=== PATIENT | male | born 1930 | race Caucasian/White ===

== ENCOUNTER 2016-12-23 06:02 | Inpatient (IN) | payer OTHER, MEDICARE ==
[~2016-12-23 06:02] MED LIST: Lactated Ringers 1,000 ML IV SCH; Lidocaine 1%/Sod Bicarbonate in NS 8.4% 1 ML Syringe IV PRN; Sodium Chloride 0.9% 10 ML Syringe FLUSH PRN
--- NOTE | 2016-12-23 06:46 | PCM.PREANE ---
Preanesthetic Assessment - Anesthesia/Transfusion/Family Hx Anesthesia History: Prior Anesthesia Without Reaction Family History of Anesthesia Reaction: No Transfusion History: No Prior Transfusion(s) Type of Transfusion Reactions: Reports: Unknown - Review of Systems General: No Symptoms Pulmonary: Shortness of Breath (asthma), Wheezing Cardiovascular: No Symptoms Gastrointestinal: No symptoms Neurological: No Symptoms Other: Reports: Thyroid Problems - Physical Assessment NPO Status Date: 12/22/16 NPO Status Time: 19:00 Pulse: 92 O2 Sat by Pulse Oximetry: 92 Respiratory Rate: 20 Blood Pressure: 180/94 Temperature: 97.3 F Height: 5 ft 10 in Weight: 80.83 kg ASA Class: 3 Mental Status: Alert & Oriented x3 Airway Class: Mallampati = 2 Dentition: Reports: Dentures (top and bottom) Thyro-Mental Finger Breadths: 3 Mouth Opening Finger Breadths: 3 ROM/Head Extension: Full Lungs: Clear to auscultation, Normal respiratory effort Cardiovascular: Regular Rate, Regular Rhythm - Lab Values: Laboratory Last Values MRSA (PCR) Negative 12/11/16 15:27 12/10/16 Hgb 16.0 Plt 213 BUN 19 Cr 1.5 lytes WNL GFR 45 - Imaging/EKG Impressions: 12/10/16 EKG SR rate 82-vent bigeminy 12/10/16 CXR lungs clear.Normal heart size Derrek Rodriguez RN visit with Dr Marsh regarding carotid bruits- no change and does not need to be worked up. - Allergies Allergies/Adverse Reactions: Allergies Allergy/AdvReac Type Severity Reaction Status Date / Time No Known Allergies Allergy Verified 12/20/16 13:23 - Blood Blood Available: Yes - Acknowledgements Anesthesia Type Planned: General Anesthesia (refused spinal even after discussing benefits. Had family members with bad experience.) Pt an Appropriate Candidate for the Planned Anesthesia: Yes Alternatives and Risks of Anesthesia Discussed w Pt/Guardian: Yes Pt/Guardian Understands and Agrees with Anesthesia Plan: Yes PreAnesthesia Questionnaire HEENT History: Reports: Impaired Vision, Other (See Below) Other HEENT History: wears glasses, dentures Cardiovascular History: Reports: Hypertension, Other (See Below) Other Cardiovascular History: bilateral carotid bruits Respiratory History: Reports: Asthma Gastrointestinal History: Reports: GERD Genitourinary History: Reports: BPH Other Genitourinary History: nocturia 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 Sees Dr. Luois for this - Infectious Disease History Infectious Disease History: Reports: Other (See Below) Other Infectious Disease History: STAFF - Past Surgical History Head Surgeries/Procedures: Reports: None GI Surgical History: Reports: Appendectomy, Cholecystectomy Musculoskeletal Surgical History: Reports: Hip Replacement Other Musculoskeletal Surgeries/Procedures:: elbow infection I&D, HISTORY OF STAFF INFECTION WITH HIP SURGERY, R total hip replacement, R shoulder surgery - SUBSTANCE USE Smoking Status *Q: Never Smoker Tobacco Use Within Last Twelve Months: No Second Hand Smoke Exposure: No Days Per Week of Alcohol Use: 0 (rarely) Recreational Drug Use History: No - HOME MEDS Home Medications: Home Meds Albuterol [IJD: Ventolin HFA] 2 inh PO ASDIRECTED PRN 01/25/16 [History] Budesonide/Formoterol Fumarate [Symbicort 80-4.5 Mcg Inhaler] 2 inh PO BID 01/24 [History] Clobetasol [Clobetasol 0.05%] 1 ea TOP ASDIRECTED PRN 01/25/16 [History] Omeprazole 20 mg PO DAILY 01/25/16 [History] amLODIPine Besylate [Amlodipine Besylate] 10 mg PO DAILY 01/25/16 [History] Levothyroxine [Synthroid] 50 mcg PO DAILY 12/20/16 [History] - CURRENT (IN HOUSE) MEDS Current Meds: Current Medications Lactated Ringer's (Ringers, Lactated) 1,000 mls @ 125 mls/hr IV ASDIRECTED LEE Lidocaine/Sodium Bicarbonate (Buffered Lidocaine 1% In Ns 8.4%) 0.25 ml IV ONETIME PRN PRN Reason: Prior to IV Start Sodium Chloride (Saline Flush) 10 ml FLUSH ASDIRECTED PRN PRN Reason: Keep Vein Open Discontinued Medications Bupivacaine HCl (Marcaine 0.25%) Confirm Administered Dose 30 ml .ROUTE .STK- MED ONE Stop: 12/23/16 06:03 Cefazolin Sodium (Ancef) Confirm Administered Dose 2 gm .ROUTE .STK-MED ONE Stop: 12/23/16 06:02 Cefazolin Sodium (Ancef) Confirm Administered Dose 2 gm .ROUTE .STK-MED ONE Stop: 12/23/16 06:51 Iodine (Iodine 2% Mild Tincture) Confirm Administered Dose 30 ml .ROUTE .STK- MED ONE Stop: 12/23/16 06:02 Morphine Sulfate (Duramorph Pf) Confirm Administered Dose 10 mg .ROUTE .STK-MED ONE Stop: 12/23/16 06:51 Ondansetron HCl (Zofran) Confirm Administered Dose 4 mg .ROUTE .STK-MED ONE Stop: 12/23/16 06:50 Tranexamic Acid (Cyklokapron) Confirm Administered Dose 1,000 mg .ROUTE .STK- MED ONE Stop: 12/23/16 06:02
[2016-12-23] MEDS ORDERED: Ondansetron 4 MG/2 ML SDV ONE (06:49)
[2016-12-23] MEDS ORDERED: Morphine PF 10 MG/10 ML SDV ONE (06:50)
[2016-12-23] MEDS ORDERED: Albuterol 0.083% 2.5 MG/3 ML Neb Soln ONE (06:50)
[2016-12-23] MEDS ORDERED: ceFAZolin 1 GM Vial ONE (06:50)
[2016-12-23] MEDS ORDERED: Albuterol 0.083% 2.5 MG/3 ML Neb Soln NEB ONE (06:52)
[2016-12-23] MEDS ORDERED: Propofol 200 MG/20 ML SDV ONE (06:55)
[2016-12-23] MEDS ORDERED: Bisacodyl 5 MG Tab PO PRN (06:58)
[2016-12-23] MEDS ORDERED: Sennosides 8.6 MG Tab PO PRN (06:58)
[2016-12-23] MEDS ORDERED: Morphine 2 MG/ML Syringe IVPUSH PRN (06:58)
[2016-12-23] MEDS ORDERED: Magnesium Hydroxide 400 MG/5 ML Susp 30 ML Cup PO PRN (06:58)
[2016-12-23] MEDS ORDERED: fentaNYL 100 MCG/2 ML SDV ONE ×2 (07:12→08:04)
[2016-12-23] MEDS ORDERED: Lidocaine 1% 4 ML ONE (07:12)
[2016-12-23] MEDS ORDERED: Rocuronium 50 MG/5 ML Vial ONE (07:12)
[2016-12-23] MEDS ORDERED: Vancomycin 1 GM, Vancomycin 500 MG in Sodium Chloride 0.9% 500 ML IV ONE (07:15)
[2016-12-23] MEDS: Iodine/Sodium Iodide 2% Tincture 30 ML Bottle ONE ×2 (07:50→08:15)
[2016-12-23] MEDS: ceFAZolin 1 GM Vial ONE ×2 (07:50→08:20)
[2016-12-23] MEDS: Morphine 8 MG, EPINEPHrine 0.3 MG, Cefuroxime 750 MG, Ketorolac 30 MG, Sodium Chloride ... ONE ×15 (07:51→13:03)
[2016-12-23] MEDS: Bupivacaine 0.25% 30 ML SDV ONE ×2 (07:51→08:24)
[2016-12-23] MEDS ORDERED: ePHEDrine/Normal Saline 25 MG/5 ML Syringe ONE ×2 (08:02→08:37)
[2016-12-23] MEDS ORDERED: HYDROmorphone 1 MG/ML Syringe ONE (08:04)
[2016-12-23] MEDS ORDERED: Ondansetron 4 MG/2 ML SDV IVPUSH PRN (08:09)
[2016-12-23] MEDS ORDERED: Meperidine PF 50 MG/ML Syringe IVPUSH PRN (08:09)
[2016-12-23] MEDS ORDERED: Lactated Ringers 1,000 ML ONE (08:14)
--- NOTE | 2016-12-23 08:25 | PCM.OPNOTE ---
- General Post-Op/Procedure Note Date of Surgery/Procedure: 12/23/16 Operative Procedure(s): left total hip arthroplasty Pre Op Diagnosis: left hip osteoarthrosis Post-Op Diagnosis: Same Anesthesia Technique: General ET tube, Local Primary Surgeon: Mamadou Armstrong Anesthesia Provider: Leslie Gaspar Fitness Services Manager: Dina Hinkle Fitness Services Manager: Trixie Gonzales EBJessika in mLs: 350 Complications: None Condition: Good
[2016-12-23] MEDS ORDERED: Phenylephrine/Normal Saline 100 MCG/ML 10 ML Syringe ONE (08:37)
--- NOTE | 2016-12-23 09:13 | PCM.POSTAN ---
POST ANESTHESIA ASSESSMENT - MENTAL STATUS Mental Status: alert - VITAL SIGNS Pulse Rate: 104 SaO2: 94 Resp Rate: 14 Blood Pressure: 150/84 Temperature: 36.4 C - RESPIRATORY Respiratory Status: respiratory rate WNL, airway patent, O2 saturation stable - CARDIOVASCULAR CV Status: pulse rate WNL, blood pressure stable - GASTROINTESTINAL GI Status: no symptoms - PAIN Pain Score: 0 - POST OP HYDRATION Hydration Status: adequate & stable
[2016-12-23] MEDS ORDERED: Albuterol/Ipratropium 3.0-0.5 MG/3 ML Neb Soln ONE (09:50)
[2016-12-23] MEDS ORDERED: Albuterol/Ipratropium 3.0-0.5 MG/3 ML Neb Soln NEB ONE (09:56)
[2016-12-23] MEDS ORDERED: Naloxone 0.4 MG/ML SDV IVPUSH PRN (10:00)
[2016-12-23] MEDS ORDERED: HYDROmorphone 0.5 MG/0.5 ML Syringe IVPUSH PRN (10:00)
[2016-12-23] MEDS ORDERED: fentaNYL 100 MCG/2 ML SDV IVPUSH PRN (10:00)
--- NOTE | 2016-12-23 10:02 | CR ---
Pelvis and left hip: AP view of the pelvis was obtained centered to the hips. Lateral view of the left hip was also obtained. Comparison: No previous pelvis or hip exam. Bilateral hip prosthesis are seen. Components are aligned. Soft tissue air is noted around the left hip compatible with recent hip prosthesis placement. Underlying bony structures are intact. Degenerative change is partially visualized within the lower lumbar spine. Impression: 1. Recently placed left hip prosthesis. 2. Other incidental findings as described above. Diagnostic code #2
--- NOTE | 2016-12-23 11:01 | PCM.CONS ---
H&P History of Present Illness - General Date of Service: 12/23/16 Admit Problem/Dx: Admission Diagnosis/Problem Admission Diagnosis/Problem Osteoarthritis of hip Source of Information: Patient, Family, Old Records, Provider, RN Notes Reviewed History Limitations: Reports: Physical Impairment - History of Present Illness Initial Comments - Free Text/Narative: This is an 86-year-old, white male, with past medical history of HTN, Asthma, GERD, Hypothyroidism, OA/DJD, BPH and Carotid Bruits who underwent status post left total hip arthroplasty post operative day zero. Patient is currently nauseated with vomiting. His pain is controlled. He denies any other acute issues. Medicine was consulted for postoperative care. Left Hip Pain Score (Numeric/FACES): 0 - Related Data Allergies/Adverse Reactions: Allergies Allergy/AdvReac Type Severity Reaction Status Date / Time No Known Allergies Allergy Verified 12/20/16 13:23 Home Medications: Home Meds Albuterol [IJD: Ventolin HFA] 2 inh PO ASDIRECTED PRN 01/25/16 [History] Budesonide/Formoterol Fumarate [Symbicort 80-4.5 Mcg Inhaler] 2 inh PO BID 01/24 [History] Clobetasol [Clobetasol 0.05%] 1 ea TOP ASDIRECTED PRN 01/25/16 [History] Omeprazole 20 mg PO DAILY 01/25/16 [History] amLODIPine Besylate [Amlodipine Besylate] 10 mg PO DAILY 01/25/16 [History] Levothyroxine [Synthroid] 50 mcg PO DAILY 12/20/16 [History] Tamsulosin HCl [Tamsulosin HCl] PO DAILY 12/23/16 [History] Past Medical History HEENT History: Reports: Impaired Vision, Other (See Below) Other HEENT History: wears glasses, dentures Cardiovascular History: Reports: Hypertension, Other (See Below) Other Cardiovascular History: bilateral carotid bruits Respiratory History: Reports: Asthma Gastrointestinal History: Reports: GERD Genitourinary History: Reports: BPH Other Genitourinary History: nocturia 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 Sees Dr. Louis for this - Infectious Disease History Infectious Disease History: Reports: Other (See Below) Other Infectious Disease History: STAFF - Past Surgical History Head Surgeries/Procedures: Reports: None GI Surgical History: Reports: Appendectomy, Cholecystectomy Musculoskeletal Surgical History: Reports: Hip Replacement Other Musculoskeletal Surgeries/Procedures:: elbow infection I&D, HISTORY OF STAFF INFECTION WITH HIP SURGERY, R total hip replacement, R shoulder surgery Social & Family History - Family History Cardiac: Reports: Aneurysm : Reports: Dialysis Endocrine/Metabolic: Reports: Hypothyroidism Oncologic: Reports: Colon, Leukemia Other Oncologic Family History: STOMACH CANCER, LEUKEMIA - Tobacco Use Smoking Status *Q: Never Smoker Second Hand Smoke Exposure: No - Alcohol Use Days Per Week of Alcohol Use: 0 (rarely) - Recreational Drug Use Recreational Drug Use: No H&P Review of Systems - Review of Systems: Review Of Systems: See Below General: Denies: Fever, Malaise, Weakness, Fatigue HEENT: Reports: No Symptoms Pulmonary: Denies: Shortness of Breath Cardiovascular: Denies: Chest Pain, Palpitations, Dyspnea on Exertion Gastrointestinal: Reports: Nausea, Vomiting. Denies: Abdominal Pain Genitourinary: Reports: No Symptoms Musculoskeletal: Reports: No Symptoms Skin: Denies: Cyanosis, Erythema Psychiatric: Denies: Confusion, Depression, Anxiety Neurological: Reports: Difficulty Walking, Gait Disturbance. Denies: Confusion Hematologic/Lymphatic: Reports: No Symptoms Immunologic: Reports: No Symptoms Exam - Exam Exam: See Below - Vital Signs Vital Signs: Last Vital Signs Temp 36.5 C 12/23/16 09:50 Pulse 104 H 12/23/16 09:12 Resp 19 12/23/16 09:50 BP 127/72 12/23/16 09:50 Pulse Ox 92 L 12/23/16 09:59 Weight: 80.83 kg - Exam General: Alert, Oriented, Cooperative, Mild Distress HEENT: Conjunctiva Clear, EACs Clear, EOMI, Hearing Intact, Mucosa Moist & [place] , Nares Patent, Normal Nasal Septum, Posterior Pharynx Clear, Pupils Equal, Pupils Reactive Neck: Supple, Trachea Midline, Carotid Bruit Lungs: Normal Respiratory Effort, Decreased Breath Sounds Cardiovascular: Regular Rate, Regular Rhythm Abdomen: Normal Bowel Sounds, Soft. No: Organomegaly, Tenderness (Male) Exam: Deferred Rectal (Males) Exam: Deferred Back Exam: Normal Inspection, Decreased Range of Motion Extremities: Normal Inspection, Normal Pulses. No: Edema Peripheral Pulses: 2+: Posterior Tibial (L), Posterior Tibial (R), Dorsalis Pedis (L), Dorsalis Pedis (R) Skin: Warm, Dry, Intact Neuro Extensive - Mental Status: Oriented x3, Normal Cognition, Memory Intact Neuro Extensive - Motor, Sensory, Reflexes: CN II-XII Intact (limited but fairly intact), Abnormal Gait Psychiatric: Alert, Normal Affect, Normal Mood - Patient Data Lab Results last 24 hrs: Laboratory Results - last 24 hr 12/23/16 Range/Units 06:39 Blood Type A POSITIVE Gel Antibody Screen Negative Consult PN Assessment/Plan POD#: 0 Procedures: Procedures AIRWAY INHALATION TREATMENT (01/29/16) BLOOD TYPING SEROLOGIC ABO (01/29/16) BLOOD TYPING SEROLOGIC RH(D) (01/29/16) COMPLETE CBC W/AUTO DIFF WBC (01/29/16) COMPREHEN METABOLIC PANEL (01/29/16) EVALUATE PT USE OF INHALER (01/29/16) FLUOROSCOPE EXAMINATION (01/29/16) GAIT TRAINING THERAPY (01/29/16) MANUAL THERAPY 1/> REGIONS (05/02/16) MEASURE BLOOD OXYGEN LEVEL (01/29/16) MEASURE BLOOD OXYGEN LEVEL (01/29/16) MR-STAPH DNA AMP PROBE (01/29/16) OT EVALUATION (01/29/16) PT EVALUATION (03/01/16) RBC ANTIBODY SCREEN (01/29/16) ROUTINE VENIPUNCTURE (12/13/16) SELF CARE MNGMENT TRAINING (01/29/16) THERAPEUTIC EXERCISES (05/15/16) THROMBOPLASTIN TIME PARTIAL (12/13/16) X-RAY EXAM OF SHOULDER (01/29/16) Problem List Initiated/Reviewed/Updated: Yes Plan: Assessment: Acute: Post-Operative Care State - Stable - Continue to monitor for hemodynamic instability S/p Left Total Hip Arthroplasty - Stable - DVT and Pain Management as per primary team Hx/o Chronic Left Hip Pain - Pain Management as per primary team Post-Operative Nausea and Vomiting - PRN anti-emesis - Scopolamine patch x1 now Chronic: HTN Asthma GERD Hypothyroidism BPH Carotid Bruits Plan: He is fairly stable Routine AM labs Continue home meds PT/OT consult IS q2 awake Thank you for the opportunity to participate in the management of this patient. Requesting Provider: Dr. Armstrong Date Consult Requested: 12/23/16 Reason for Consult: Post-Operative Care Patient History Reviewed: Yes Admission H&P Reviewed: Yes Consult Result/Summary: Stable
[2016-12-23] MEDS ORDERED: Clobetasol 0.05% Crm 30 GM Tube TOP PRN (12:09)
[2016-12-23] MEDS ORDERED: Scopolamine 1.5 MG Transdermal Patch TRDERM ONE (12:15)
[2016-12-23] MEDS: ceFAZolin 2 GM in Premix Bag 1 BAG IV SCH ×2 (14:25→22:19)
[2016-12-23] MEDS: Ondansetron 4 MG/2 ML SDV IVPUSH PRN ×2 (15:03→23:14)
[2016-12-23] MEDS: Vancomycin 1 GM, Vancomycin 250 MG in Sodium Chloride 0.9% 250 ML IV SCH (18:07)
[2016-12-23] MEDS: Acetaminophen/HYDROcodone 325-5 MG Tab PO PRN (22:19)
[2016-12-23] MEDS: Tamsulosin 0.4 MG Cap.ER PO SCH (22:19)
[2016-12-23] MEDS: Famotidine 20 MG Tab PO SCH (22:19)
[2016-12-23] MEDS: Docusate Sodium 100 MG Cap PO SCH (22:19)
[2016-12-24] MEDS: ceFAZolin 2 GM in Premix Bag 1 BAG IV SCH (06:23)
[2016-12-24] MEDS: Vancomycin 1 GM, Vancomycin 250 MG in Sodium Chloride 0.9% 250 ML IV SCH (07:25)
[2016-12-24] MEDS ORDERED: Albuterol 6.7 GM Inhaler INH PRN (08:24)
[2016-12-24] MEDS ORDERED: ALBUTEROL INH PRN (08:47)
[2016-12-24] MEDS ORDERED: Budesonide/Formoterol 80-4.5 MCG/Puff 6.9 GM Inhaler INH SCH ×2 (09:00→21:00)
[2016-12-24] MEDS: BUDESONIDE INH SCH ×2 (09:05→20:20)
[2016-12-24] MEDS: FORMOTEROL INH SCH ×2 (09:05→20:20)
[2016-12-24] MEDS: Docusate Sodium 100 MG Cap PO SCH ×2 (09:15→20:14)
[2016-12-24] MEDS: Aspirin 325 MG Tab.EC PO SCH ×2 (09:15→20:14)
[2016-12-24] MEDS: Famotidine 20 MG Tab PO SCH ×2 (09:16→20:14)
[2016-12-24] MEDS: Multivitamins,Therapeutic Tab PO SCH (09:16)
--- NOTE | 2016-12-24 09:20 | PCM.CONSN ---
- General Info Date of Service: 12/24/16 Admission Dx/Problem (Free Text): Admission Diagnosis/Problem Admission Diagnosis/Problem Osteoarthritis of hip POD #[address] Armstrong Postop n/v yesterday and overnight, improved this am . Pain under fair control. Was not able to be up with therapies yesterday due to n/v. Functional Status: Reports: pain controlled, tolerating diet, urinating - Review of Systems General: Reports: No Symptoms HEENT: Reports: no symptoms Pulmonary: Reports: no symptoms. Denies: shortness of breath, cough Cardiovascular: Reports: No Symptoms. Denies: Chest Pain, Palpitations, Dyspnea on Exertion Gastrointestinal: Reports: No symptoms. Denies: Abdominal pain, Nausea (one this morning), Vomiting (none this ) Genitourinary: Reports: no symptoms, other (voiding ok) Musculoskeletal: Reports: leg pain Neurological: Reports: No Symptoms Psychiatric: Reports: no symptoms - Patient Data Vitals - most recent: Last Vital Signs Temp 98.2 F 12/24/16 08:00 Pulse 83 12/24/16 08:00 Resp 16 12/24/16 08:00 BP 143/62 H 12/24/16 08:00 Pulse Ox 88 L 12/24/16 08:30 Weight - most recent: 178 lb 3.2 oz I&O - last 24 hours: Intake & Output 12/23/16 12/24/16 12/24/16 22:59 06:59 14:59 Intake Total 2190 1000 Output Total 1100 1000 Balance 1090 0 Lab Results last 24 hrs: Laboratory Results - last 24 hr 12/24/16 12/24/16 Range/Units 06:02 06:02 WBC 11.97 H (4.23-9.07) K/mm3 RBC 4.21 L (4.63-6.08) M/mm3 Hgb 12.4 L (13.7-17.5) gm/L Hct 36.4 L (40.1-51.0) % MCV 86.5 (79.0-92.2) fl MCH 29.5 (25.7-32.2) pg MCHC 34.1 (32.2-35.5) g/dl RDW Std Deviation 41.0 (35.1-43.9) fL Plt Count 190 (163-337) K/mm3 MPV 9.8 (9.4-12.3) fl Neut % (Auto) 80.4 H (34.0-67.9) % Lymph % (Auto) 9.3 L (21.8-53.1) % [place] % (Auto) 9.7 (5.3-12.2) % Eos % (Auto) 0.3 L (0.8-7.0) Baso % (Auto) 0.1 (0.1-1.2) % Neut # (Auto) 9.63 H (1.78-5.38) K/mm3 Lymph # (Auto) 1.11 L (1.32-3.57) K/mm3 [place] # (Auto) 1.16 H (0.30-0.82) K/mm3 Eos # (Auto) 0.04 (0.04-0.54) K/mm3 Baso # (Auto) 0.01 (0.01-0.08) K/mm3 Manual Slide Review Normal smear Sodium 140 (136-145) mEq/L Potassium 3.8 (3.5-5.1) mEq/L Chloride 105 (98-107) mEq/L Carbon Dioxide 27 (21-32) mEq/L Anion Gap 11.8 (5-15) BUN 14 (7-18) mg/dL Creatinine 1.2 (0.7-1.3) mg/dL Est Cr Clr Drug Dosing 47.31 mL/min Estimated GFR (MDRD) 58 (>60) mL/min BUN/Creatinine Ratio 11.7 L (14-18) Glucose 133 H (83-115) mg/dL Calcium 8.3 L (8.5-10.1) mg/dL Total Bilirubin 0.5 (0.2-1.0) mg/dL AST 57 H (15-37) U/L ALT 90 H (16-63) U/L Alkaline Phosphatase 79 (46-116) U/L Total Protein 6.4 (6.4-8.2) g/dl Albumin 3.4 (3.4-5.0) g/dl Globulin 3.0 gm/dL Albumin/Globulin Ratio 1.1 (1-2) Med Orders - Current: Current Medications Hydrocodone Bitart/Acetaminophen ([place] 325-5 Mg) 1 - 2 tab PO Q4H PRN PRN Reason: Pain Last Admin: 12/23/16 22:19 Dose: 2 tab Amlodipine Besylate (Norvasc) 10 mg PO DAILY [facility] Aspirin (Ecotrin) 325 mg PO BID [facility] Last Admin: 12/24/16 09:15 Dose: 325 mg Bisacodyl (Dulcolax) 5 mg PO DAILY PRN PRN Reason: Constipation Clobetasol Propionate (Clobetasol 0.05%) 0 gm TOP BID PRN PRN Reason: itching Docusate Sodium (Colace) 100 mg PO BID [facility] Last Admin: 12/24/16 09:15 Dose: 100 mg Famotidine (Pepcid) 20 mg PO BID [facility] Last Admin: 12/24/16 09:16 Dose: 20 mg Levothyroxine Sodium (Synthroid) 50 mcg PO DAILY [facility] Magnesium Hydroxide (Milk Of Magnesia) 30 ml PO BID PRN PRN Reason: Constipation Miscellaneous Information (Remove Patch) 0 ea TRDERM ONETIME ONE Stop: 12/26/16 12:16 Morphine Sulfate (Morphine) 2 mg IVPUSH Q2H PRN PRN Reason: Pain (moderate 4-6) Multivitamins (Thera) 1 each PO DAILY [facility] Last Admin: 12/24/16 09:16 Dose: 1 each Naloxone HCl (Narcan) 0.1 mg IVPUSH Q5M PRN PRN Reason: oversedation Stop: 12/24/16 10:01 Ondansetron HCl (Zofran) 4 mg IVPUSH Q8H PRN PRN Reason: Nausea Last Admin: 12/23/16 23:14 Dose: 4 mg Albuterol (Proventil () Inhaler) 0 each INH Q4H PRN PRN Reason: sob/wheeze Budesonide/Formoterol 80-4.5 Mcg/Puff Inhaler 0 each INH BID [facility] Last Admin: 12/24/16 09:05 Dose: Not Given Senna (Senna) 8.6 mg PO BID PRN PRN Reason: Constipation Sodium Chloride (Saline Flush) 10 ml FLUSH ASDIRECTED PRN PRN Reason: Keep Vein Open Tamsulosin HCl (Flomax) 0.4 mg PO BEDTIME [facility] Last Admin: 12/23/16 22:19 Dose: 0.4 mg Discontinued Medications Albuterol (Proventil Neb Soln) 2.5 mg NEB ONETIME ONE Stop: 12/23/16 06:53 Last Admin: 12/23/16 07:00 Dose: 2.5 mg Albuterol (Proventil Neb Soln) Confirm Administered Dose 2.5 mg .ROUTE .STK-MED ONE Stop: 12/23/16 06:51 Last Admin: 12/23/16 07:00 Dose: Not Given Albuterol (Proventil Hfa) 0 gm INH Q4H PRN PRN Reason: sob/wheeze Last Admin: 12/24/16 08:29 Dose: 2 puff Albuterol/Ipratropium (Duoneb 3.0-0.5 Mg/3 Ml) 3 ml NEB ONETIME ONE Stop: 12/23/16 09:57 Last Admin: 12/23/16 09:59 Dose: 3 ml Albuterol/Ipratropium (Duoneb 3.0-0.5 Mg/3 Ml) Confirm Administered Dose 3 ml .ROUTE .STK-MED ONE Stop: 12/23/16 09:51 Last Admin: 12/23/16 09:59 Dose: Not Given Budesonide/Formoterol Fumarate (Symbicort 80-4.5 Mcg) 0 gm INH BID [facility] Last Admin: 12/24/16 08:30 Dose: 2 puff Budesonide/Formoterol Fumarate (Symbicort 80-4.5 Mcg) gm INH BID LEE Bupivacaine HCl (Marcaine 0.25%) Confirm Administered Dose 30 ml .ROUTE .STK- MED ONE Stop: 12/23/16 06:03 Last Admin: 12/23/16 08:24 Dose: 30 ml Cefazolin Sodium (Ancef) Confirm Administered Dose 2 gm .ROUTE .STK-MED ONE Stop: 12/23/16 06:02 Last Admin: 12/23/16 08:20 Dose: 2 gm Cefazolin Sodium (Ancef) Confirm Administered Dose 2 gm .ROUTE .STK-MED ONE Stop: 12/23/16 06:51 Morphine Sulfate 8 mg/Epinephrine HCl 0.3 mg/Cefuroxime Sodium 750 mg/Ketorolac Tromethamine 30 mg/Sodium Chloride 27.9 ml 0 mg .XX ONETIME ONE Stop: 12/23/16 09:01 Last Admin: 12/23/16 13:03 Dose: Not Given Ephedrine Sulfate (Ephedrine In Ns) Confirm Administered Dose 25 mg .ROUTE .STK- MED ONE Stop: 12/23/16 08:03 Ephedrine Sulfate (Ephedrine In Ns) Confirm Administered Dose 25 mg .ROUTE .STK- MED ONE Stop: 12/23/16 08:38 Fentanyl (Sublimaze) Confirm Administered Dose 100 mcg .ROUTE .STK-MED ONE Stop: 12/23/16 07:13 Fentanyl (Sublimaze) Confirm Administered Dose 100 mcg .ROUTE .STK-MED ONE Stop: 12/23/16 08:05 Fentanyl (Sublimaze) 50 mcg IVPUSH Q5M PRN PRN Reason: Pain Stop: 12/23/16 12:00 Last Admin: 12/23/16 09:25 Dose: 50 mcg Hydromorphone HCl (Dilaudid) Confirm Administered Dose 1 mg .ROUTE .STK-MED ONE Stop: 12/23/16 08:05 Hydromorphone HCl (Dilaudid) 0.5 mg IVPUSH Q15M PRN PRN Reason: severe pain Stop: 12/23/16 10:16 Lactated Ringer's (Ringers, Lactated) 1,000 mls @ 125 mls/hr IV ASDIRECTED [facility] Last Admin: 12/23/16 06:45 Dose: 125 mls/hr Vancomycin HCl 1 gm/ Sodium (Chloride) 250 mls @ 250 mls/hr IV ONETIME ONE Stop: 12/23/16 07:46 Last Admin: 12/23/16 13:04 Dose: Not Given Lidocaine HCl (Xylocaine-Mpf 1%) Confirm Administered Dose 4 mls @ as directed .ROUTE .STK-MED ONE Stop: 12/23/16 07:13 Vancomycin HCl 1 gm/Vancomycin HCl 500 mg/ Sodium Chloride 500 mls @ 333.333 mls/hr IV ONETIME ONE Stop: 12/23/16 08:44 Last Admin: 12/23/16 07:11 Dose: 333.333 mls/hr Cefazolin Sodium/Dextrose 2 gm (/ Premix) 50 mls @ 100 mls/hr IV Q8H [facility] Stop: 12/24/16 07:29 Last Admin: 12/24/16 06:23 Dose: 100 mls/hr Lactated Ringer's (Ringers, Lactated) Confirm Administered Dose 1,000 mls @ as directed .ROUTE .STK-MED ONE Stop: 12/23/16 08:15 Vancomycin HCl 1 gm/Vancomycin HCl 250 mg/ Sodium Chloride 250 mls @ 167 mls/ hr IV Q12H [facility]EE Stop: 12/24/16 08:30 Last Admin: 12/24/16 07:25 Dose: 167 mls/hr Iodine (Iodine 2% Mild Tincture) Confirm Administered Dose 30 ml .ROUTE .STK- MED ONE Stop: 12/23/16 06:02 Last Admin: 12/23/16 08:15 Dose: 18 ml Lidocaine/Sodium Bicarbonate (Buffered Lidocaine 1% In Ns 8.4%) 0.25 ml IV ONETIME PRN PRN Reason: Prior to IV Start Last Admin: 12/23/16 06:44 Dose: 0.25 ml Meperidine HCl (Demerol) 12.5 mg IVPUSH ONETIME PRN PRN Reason: shivering Stop: 12/24/16 08:10 Morphine Sulfate (Duramorph Pf) Confirm Administered Dose 10 mg .ROUTE .STK-MED ONE Stop: 12/23/16 06:51 Ondansetron HCl (Zofran) Confirm Administered Dose 4 mg .ROUTE .STK-MED ONE Stop: 12/23/16 06:50 Ondansetron HCl (Zofran) 4 mg IVPUSH ONETIME PRN PRN Reason: Nausea/Vomiting Stop: 12/23/16 12:00 Phenylephrine HCl (Phenylephrine In Ns 100 Mcg/Ml) Confirm Administered Dose 1 mg .ROUTE .STK-MED ONE Stop: 12/23/16 08:38 Propofol (Diprivan 20 Ml) Confirm Administered Dose 200 mg .ROUTE .STK-MED ONE Stop: 12/23/16 06:56 Rocuronium [place] (Zemuron) Confirm Administered Dose 50 mg .ROUTE .STK-MED ONE Stop: 12/23/16 07:13 Scopolamine (Transderm-Scop) 1.5 mg TRDERM ONETIME ONE Stop: 12/23/16 12:16 Last Admin: 12/23/16 12:14 Dose: 1.5 mg Tranexamic Acid (Cyklokapron) Confirm Administered Dose 1,000 mg .ROUTE .STK- MED ONE Stop: 12/23/16 06:02 Last Admin: 12/23/16 08:30 Dose: 1,000 mg Vancomycin HCl (Pharmacy To Dose - Vancomycin) 0 dose .XX ASDIRECTED PRN PRN Reason: RX TO DOSE POSTOP VANCOMYCIN Stop: 12/24/16 11:00 - Exam Quality Assessment: DVT prophylaxis General: alert, oriented, cooperative, no acute distress HEENT: Pupils equal, Pupils reactive, EOMI, Mucous membr. moist/pink Neck: supple Lungs: Clear to auscultation, Normal respiratory effort, Decreased breath sounds (to bases) Cardiovascular: Regular Rate, Regular Rhythm Abdomen: bowel sounds present, soft, no tenderness, no distension (Male) Exam: Deferred Extremities: other (scd's and teds bilat) Peripheral Pulses: 1+: Dorsalis Pedis (L), Dorsalis Pedis (R) Neurological: no new focal deficit Psy/Mental Status: alert, normal affect, normal mood Consult PN Assessment/Plan POD#: 1 Procedures: Procedures AIRWAY INHALATION TREATMENT (01/29/16) BLOOD TYPING SEROLOGIC ABO (01/29/16) BLOOD TYPING SEROLOGIC RH(D) (01/29/16) COMPLETE CBC W/AUTO DIFF WBC (01/29/16) COMPREHEN METABOLIC PANEL (01/29/16) EVALUATE PT USE OF INHALER (01/29/16) FLUOROSCOPE EXAMINATION (01/29/16) GAIT TRAINING THERAPY (01/29/16) MANUAL THERAPY 1/> REGIONS (05/02/16) MEASURE BLOOD OXYGEN LEVEL (01/29/16) MEASURE BLOOD OXYGEN LEVEL (01/29/16) MR-STAPH DNA AMP PROBE (01/29/16) OT EVALUATION (01/29/16) PT EVALUATION (03/01/16) RBC ANTIBODY SCREEN (01/29/16) ROUTINE VENIPUNCTURE (12/13/16) SELF CARE MNGMENT TRAINING (01/29/16) THERAPEUTIC EXERCISES (05/15/16) THROMBOPLASTIN TIME PARTIAL (12/13/16) X-RAY EXAM OF SHOULDER (01/29/16) (1) S/P total hip arthroplasty SNOMED Code(s): 778237928402, 700578626528 Code(s): Z96.649 - PRESENCE OF UNSPECIFIED ARTIFICIAL HIP JOINT Priority: High Current Visit: Yes Qualifiers: Laterality: left Qualified Code(s): Z96.642 - Presence of left artificial hip joint (2) Osteoarthritis SNOMED Code(s): 369967895 Code(s): M19.90 - UNSPECIFIED OSTEOARTHRITIS, UNSPECIFIED SITE Priority: High Current Visit: Yes Qualifiers: Osteoarthritis location: hip Osteoarthritis type: primary Laterality: left Qualified Code(s): M16.12 - Unilateral primary osteoarthritis, left hip (3) Hypothyroidism SNOMED Code(s): 36062198 Code(s): E03.9 - HYPOTHYROIDISM, UNSPECIFIED Priority: Medium Current Visit: No Qualifiers: Hypothyroidism type: unspecified Qualified Code(s): E03.9 - Hypothyroidism , unspecified (4) HTN (hypertension) SNOMED Code(s): 15609014 Code(s): I10 - ESSENTIAL (PRIMARY) HYPERTENSION Priority: Medium Current Visit: No Qualifiers: Hypertension type: essential hypertension Qualified Code(s): I10 - Essential (primary) hypertension (5) Asthma SNOMED Code(s): 640669082 Code(s): J45.909 - UNSPECIFIED ASTHMA, UNCOMPLICATED Priority: Medium Current Visit: No Qualifiers: Asthma complication type: uncomplicated Problem List Initiated/Reviewed/Updated: Yes My Orders last 24 hours: My Active Orders 12/24/16 09:00 Patient's Own Medication [Ptom] 0 each INH BID 12/25/16 09:00 Levothyroxine [Synthroid] 50 mcg PO DAILY Tamsulosin [Flomax] DOSE UNIT RTE FREQ (Cancelled) amLODIPine [Norvasc] 10 mg PO DAILY Plan: I/P: S/P Lt MIGUELITO with Dr. Armstrong, POD #1 -Pain management and DVT prophylax per Ortho -PT/OT-- was unable to work with PT yesterday due to n/v, ambulated x 1 this morning -IS, C&DB -hgb 12.4 this am; VSS, weaned from O2 this am and doing well Postoperative nausea -Improved today -Cont with scopolamine patch and PRN zofran -Did not sleep last night d/t n/v Mild elevation of LFT's this am; likely d/t N/V. -Recheck in am Chronic conditions: Hypothyroidism- cont home meds HTN- stable, cont home meds Asthma- stable, cont home meds GERD- cont home meds Hx of carotid bruit Other: DVT/GI Prophylax CM/SW for assistance with DC planning; plans dc home with . Would recommend dc home tomorrow pending n/v and lab recheck. Patient is full code status.
--- NOTE | 2016-12-24 10:11 | PCM48HPAN ---
Post Anesthesia Note - EVALUATION WITHIN 48HRS OF ANESTHETIC Vital Signs in Normal Range: Yes Patient Participated in Evaluation: Yes Respiratory Function Stable: Yes (Recently placed Oxygen on paitient for low SATS) Airway Patent: Yes Cardiovascular Function Stable: Yes Hydration Status Stable: Yes Pain Control Satisfactory: Yes Nausea and Vomiting Control Satisfactory: Yes (emesis during night. Didn't eat yet today) Mental Status Recovered: Yes
[2016-12-24] MEDS: amLODIPine 10 MG Tab PO SCH (12:21)
[2016-12-24] MEDS: Levothyroxine 50 MCG Tab PO SCH (12:24)
--- NOTE | 2016-12-24 15:36 | PCM.SURGPN ---
- General Info Date of Service: 12/24/16 POD#: 1 Functional Status: Reports: pain controlled, tolerating diet, ambulating, urinating, other (The patient had post-op nausea and this has improved.) - Review of Systems Musculoskeletal: Reports: other (The pt is progressing with P.T. and O.T.) - Patient Data Vitals - most recent: Last Vital Signs Temp 97.7 F 12/24/16 12:00 Pulse 75 12/24/16 12:00 Resp 16 12/24/16 12:00 BP 158/67 H 12/24/16 12:21 Pulse Ox 93 L 12/24/16 14:34 Weight - most recent: 178 lb 3.2 oz I&O - last 24 hours: Intake & Output 12/24/16 12/24/16 12/24/16 06:59 14:59 22:59 Intake Total 1000 0 Output Total 1000 Balance 0 0 Lab Results last 24 hrs: Laboratory Results - last 24 hr 12/24/16 12/24/16 Range/Units 06:02 06:02 WBC 11.97 H (4.23-9.07) K/mm3 RBC 4.21 L (4.63-6.08) M/mm3 Hgb 12.4 L (13.7-17.5) gm/L Hct 36.4 L (40.1-51.0) % MCV 86.5 (79.0-92.2) fl MCH 29.5 (25.7-32.2) pg MCHC 34.1 (32.2-35.5) g/dl RDW Std Deviation 41.0 (35.1-43.9) fL Plt Count 190 (163-337) K/mm3 MPV 9.8 (9.4-12.3) fl Neut % (Auto) 80.4 H (34.0-67.9) % Lymph % (Auto) 9.3 L (21.8-53.1) % Kay % (Auto) 9.7 (5.3-12.2) % Eos % (Auto) 0.3 L (0.8-7.0) Baso % (Auto) 0.1 (0.1-1.2) % Neut # (Auto) 9.63 H (1.78-5.38) K/mm3 Lymph # (Auto) 1.11 L (1.32-3.57) K/mm3 Kay # (Auto) 1.16 H (0.30-0.82) K/mm3 Eos # (Auto) 0.04 (0.04-0.54) K/mm3 Baso # (Auto) 0.01 (0.01-0.08) K/mm3 Manual Slide Review Normal smear Sodium 140 (136-145) mEq/L Potassium 3.8 (3.5-5.1) mEq/L Chloride 105 (98-107) mEq/L Carbon Dioxide 27 (21-32) mEq/L Anion Gap 11.8 (5-15) BUN 14 (7-18) mg/dL Creatinine 1.2 (0.7-1.3) mg/dL Est Cr Clr Drug Dosing 47.31 mL/min Estimated GFR (MDRD) 58 (>60) mL/min BUN/Creatinine Ratio 11.7 L (14-18) Glucose 133 H (83-115) mg/dL Calcium 8.3 L (8.5-10.1) mg/dL Total Bilirubin 0.5 (0.2-1.0) mg/dL AST 57 H (15-37) U/L ALT 90 H (16-63) U/L Alkaline Phosphatase 79 (46-116) U/L Total Protein 6.4 (6.4-8.2) g/dl Albumin 3.4 (3.4-5.0) g/dl Globulin 3.0 gm/dL Albumin/Globulin Ratio 1.1 (1-2) Med Orders - Current: Current Medications Hydrocodone Bitart/Acetaminophen ([place] 325-5 Mg) 1 - 2 tab PO Q4H PRN PRN Reason: Pain Last Admin: 12/23/16 22:19 Dose: 2 tab Amlodipine Besylate (Norvasc) 10 mg PO DAILY [facility] Last Admin: 12/24/16 12:21 Dose: 10 mg Aspirin (Ecotrin) 325 mg PO BID [facility] Last Admin: 12/24/16 09:15 Dose: 325 mg Bisacodyl (Dulcolax) 5 mg PO DAILY PRN PRN Reason: Constipation Clobetasol Propionate (Clobetasol 0.05%) 0 gm TOP BID PRN PRN Reason: itching Docusate Sodium (Colace) 100 mg PO BID [facility] Last Admin: 12/24/16 09:15 Dose: 100 mg Famotidine (Pepcid) 20 mg PO BID [facility] Last Admin: 12/24/16 09:16 Dose: 20 mg Levothyroxine Sodium (Synthroid) 50 mcg PO ACBREAKFAST [facility] Last Admin: 12/24/16 12:24 Dose: 50 mcg Magnesium Hydroxide (Milk Of Magnesia) 30 ml PO BID PRN PRN Reason: Constipation Miscellaneous Information (Remove Patch) 0 ea TRDERM ONETIME ONE Stop: 12/26/16 12:16 Morphine Sulfate (Morphine) 2 mg IVPUSH Q2H PRN PRN Reason: Pain (moderate 4-6) Multivitamins (Thera) 1 each PO DAILY [facility] Last Admin: 12/24/16 09:16 Dose: 1 each Ondansetron HCl (Zofran) 4 mg IVPUSH Q8H PRN PRN Reason: Nausea Last Admin: 12/23/16 23:14 Dose: 4 mg Albuterol (Proventil () Inhaler) 0 each INH Q4H PRN PRN Reason: sob/wheeze Last Admin: 12/24/16 14:33 Dose: 2 each Budesonide/Formoterol 80-4.5 Mcg/Puff Inhaler 0 each INH BID [facility] Last Admin: 12/24/16 09:05 Dose: Not Given Senna (Senna) 8.6 mg PO BID PRN PRN Reason: Constipation Sodium Chloride (Saline Flush) 10 ml FLUSH ASDIRECTED PRN PRN Reason: Keep Vein Open Tamsulosin HCl (Flomax) 0.4 mg PO BEDTIME [facility] Last Admin: 12/23/16 22:19 Dose: 0.4 mg Discontinued Medications Albuterol (Proventil Neb Soln) 2.5 mg NEB ONETIME ONE Stop: 12/23/16 06:53 Last Admin: 12/23/16 07:00 Dose: 2.5 mg Albuterol (Proventil Neb Soln) Confirm Administered Dose 2.5 mg .ROUTE .STK-MED ONE Stop: 12/23/16 06:51 Last Admin: 12/23/16 07:00 Dose: Not Given Albuterol (Proventil Hfa) 0 gm INH Q4H PRN PRN Reason: sob/wheeze Last Admin: 12/24/16 08:29 Dose: 2 puff Albuterol/Ipratropium (Duoneb 3.0-0.5 Mg/3 Ml) 3 ml NEB ONETIME ONE Stop: 12/23/16 09:57 Last Admin: 12/23/16 09:59 Dose: 3 ml Albuterol/Ipratropium (Duoneb 3.0-0.5 Mg/3 Ml) Confirm Administered Dose 3 ml .ROUTE .STK-MED ONE Stop: 12/23/16 09:51 Last Admin: 12/23/16 09:59 Dose: Not Given Budesonide/Formoterol Fumarate (Symbicort 80-4.5 Mcg) 0 gm INH BID [facility] Last Admin: 12/24/16 08:30 Dose: 2 puff Budesonide/Formoterol Fumarate (Symbicort 80-4.5 Mcg) gm INH BID [facility] Bupivacaine HCl (Marcaine 0.25%) Confirm Administered Dose 30 ml .ROUTE .STK- MED ONE Stop: 12/23/16 06:03 Last Admin: 12/23/16 08:24 Dose: 30 ml Cefazolin Sodium (Ancef) Confirm Administered Dose 2 gm .ROUTE .STK-MED ONE Stop: 12/23/16 06:02 Last Admin: 12/23/16 08:20 Dose: 2 gm Cefazolin Sodium (Ancef) Confirm Administered Dose 2 gm .ROUTE .STK-MED ONE Stop: 12/23/16 06:51 Morphine Sulfate 8 mg/Epinephrine HCl 0.3 mg/Cefuroxime Sodium 750 mg/Ketorolac Tromethamine 30 mg/Sodium Chloride 27.9 ml 0 mg .XX ONETIME ONE Stop: 12/23/16 09:01 Last Admin: 12/23/16 13:03 Dose: Not Given Ephedrine Sulfate (Ephedrine In Ns) Confirm Administered Dose 25 mg .ROUTE .STK- MED ONE Stop: 12/23/16 08:03 Ephedrine Sulfate (Ephedrine In Ns) Confirm Administered Dose 25 mg .ROUTE .STK- MED ONE Stop: 12/23/16 08:38 Fentanyl (Sublimaze) Confirm Administered Dose 100 mcg .ROUTE .STK-MED ONE Stop: 12/23/16 07:13 Fentanyl (Sublimaze) Confirm Administered Dose 100 mcg .ROUTE .STK-MED ONE Stop: 12/23/16 08:05 Fentanyl (Sublimaze) 50 mcg IVPUSH Q5M PRN PRN Reason: Pain Stop: 12/23/16 12:00 Last Admin: 12/23/16 09:25 Dose: 50 mcg Hydromorphone HCl (Dilaudid) Confirm Administered Dose 1 mg .ROUTE .STK-MED ONE Stop: 12/23/16 08:05 Hydromorphone HCl (Dilaudid) 0.5 mg IVPUSH Q15M PRN PRN Reason: severe pain Stop: 12/23/16 10:16 Lactated Ringer's (Ringers, Lactated) 1,000 mls @ 125 mls/hr IV ASDIRECTED [facility] Last Admin: 12/23/16 06:45 Dose: 125 mls/hr Vancomycin HCl 1 gm/ Sodium (Chloride) 250 mls @ 250 mls/hr IV ONETIME ONE Stop: 12/23/16 07:46 Last Admin: 12/23/16 13:04 Dose: Not Given Lidocaine HCl (Xylocaine-Mpf 1%) Confirm Administered Dose 4 mls @ as directed .ROUTE .STK-MED ONE Stop: 12/23/16 07:13 Vancomycin HCl 1 gm/Vancomycin HCl 500 mg/ Sodium Chloride 500 mls @ 333.333 mls/hr IV ONETIME ONE Stop: 12/23/16 08:44 Last Admin: 12/23/16 07:11 Dose: 333.333 mls/hr Cefazolin Sodium/Dextrose 2 gm (/ Premix) 50 mls @ 100 mls/hr IV Q8H [facility] Stop: 12/24/16 07:29 Last Admin: 12/24/16 06:23 Dose: 100 mls/hr Lactated Ringer's (Ringers, Lactated) Confirm Administered Dose 1,000 mls @ as directed .ROUTE .STK-MED ONE Stop: 12/23/16 08:15 Vancomycin HCl 1 gm/Vancomycin HCl 250 mg/ Sodium Chloride 250 mls @ 167 mls/ hr IV Q12H [facility] Stop: 12/24/16 08:30 Last Admin: 12/24/16 07:25 Dose: 167 mls/hr Iodine (Iodine 2% Mild Tincture) Confirm Administered Dose 30 ml .ROUTE .STK- MED ONE Stop: 12/23/16 06:02 Last Admin: 12/23/16 08:15 Dose: 18 ml Lidocaine/Sodium Bicarbonate (Buffered Lidocaine 1% In Ns 8.4%) 0.25 ml IV ONETIME PRN PRN Reason: Prior to IV Start Last Admin: 12/23/16 06:44 Dose: 0.25 ml Meperidine HCl (Demerol) 12.5 mg IVPUSH ONETIME PRN PRN Reason: shivering Stop: 12/24/16 08:10 Morphine Sulfate (Duramorph Pf) Confirm Administered Dose 10 mg .ROUTE .STK-MED ONE Stop: 12/23/16 06:51 Naloxone HCl (Narcan) 0.1 mg IVPUSH Q5M PRN PRN Reason: oversedation Stop: 12/24/16 10:01 Ondansetron HCl (Zofran) Confirm Administered Dose 4 mg .ROUTE .STK-MED ONE Stop: 12/23/16 06:50 Ondansetron HCl (Zofran) 4 mg IVPUSH ONETIME PRN PRN Reason: Nausea/Vomiting Stop: 12/23/16 12:00 Phenylephrine HCl (Phenylephrine In Ns 100 Mcg/Ml) Confirm Administered Dose 1 mg .ROUTE .STK-MED ONE Stop: 12/23/16 08:38 Propofol (Diprivan 20 Ml) Confirm Administered Dose 200 mg .ROUTE .STK-MED ONE Stop: 12/23/16 06:56 Rocuronium [place] (Zemuron) Confirm Administered Dose 50 mg .ROUTE .STK-MED ONE Stop: 12/23/16 07:13 Scopolamine (Transderm-Scop) 1.5 mg TRDERM ONETIME ONE Stop: 12/23/16 12:16 Last Admin: 12/23/16 12:14 Dose: 1.5 mg Tranexamic Acid (Cyklokapron) Confirm Administered Dose 1,000 mg .ROUTE .STK- MED ONE Stop: 12/23/16 06:02 Last Admin: 12/23/16 08:30 Dose: 1,000 mg Vancomycin HCl (Pharmacy To Dose - Vancomycin) 0 dose .XX ASDIRECTED PRN PRN Reason: RX TO DOSE POSTOP VANCOMYCIN Stop: 12/24/16 11:00 - Exam Wound/Incisions: dressing dry and intact General: alert, cooperative, no acute distress Lungs: Normal respiratory effort Extremities: normal pulses, no calf tenderness, other (Left thigh soft and nontender.) - Problem List Review Problem List Initiated/Reviewed/Updated: Yes - My Orders Last 24 Hours: Active Orders 24 hr Category Date Time Status CBC WITH AUTO DIFF [HEME] AM Lab 12/25/16 05:11 Ordered COMPREHENSIVE METABOLIC PN,CMP [CHEM] AM Lab 12/25/16 05:11 Ordered Aspirin [Ecotrin] Med 12/24/16 09:00 Active 325 mg PO BID Docusate Sodium [Colace] Med 12/23/16 21:00 Active 100 mg PO BID Famotidine [Pepcid] Med 12/23/16 21:00 Active 20 mg PO BID Levothyroxine [Synthroid] Med 12/24/16 09:30 Active 50 mcg PO ACBREAKFAST Multivitamins,Therapeutic [Thera] Med 12/24/16 09:00 Active 1 each PO DAILY Ondansetron [Zofran] Med 12/23/16 14:38 Active 4 mg IVPUSH Q8H PRN Patient's Own Medication [Ptom] Med 12/24/16 09:00 Active 0 each INH BID Patient's Own Medication [Ptom] Med 12/24/16 08:47 Active 0 each INH Q4H PRN Remove Patch Med 12/26/16 12:15 Once 0 ea TRDERM ONETIME ONE Tamsulosin [Flomax] Med 12/23/16 21:35 Active 0.4 mg PO BEDTIME amLODIPine [Norvasc] Med 12/24/16 09:30 Active 10 mg PO DAILY Medication Orders Hydrocodone Bitart/Acetaminophen ([place] 325-5 Mg) 1 - 2 tab PO Q4H PRN PRN Reason: Pain Last Admin: 12/23/16 22:19 Dose: 2 tab Amlodipine Besylate (Norvasc) 10 mg PO DAILY [facility] Last Admin: 12/24/16 12:21 Dose: 10 mg Aspirin (Ecotrin) 325 mg PO BID [facility] Last Admin: 12/24/16 09:15 Dose: 325 mg Bisacodyl (Dulcolax) 5 mg PO DAILY PRN PRN Reason: Constipation Clobetasol Propionate (Clobetasol 0.05%) 0 gm TOP BID PRN PRN Reason: itching Docusate Sodium (Colace) 100 mg PO BID [facility] Last Admin: 12/24/16 09:15 Dose: 100 mg Admin: 05/22/17 22:19 Dose: 100 mg Famotidine (Pepcid) 20 mg PO BID [facility] Last Admin: 12/24/16 09:16 Dose: 20 mg Admin: 12/23/16 22:19 Dose: 20 mg Levothyroxine Sodium (Synthroid) 50 mcg PO ACBREAKFAST [facility] Last Admin: 12/24/16 12:24 Dose: 50 mcg Magnesium Hydroxide (Milk Of Magnesia) 30 ml PO BID PRN PRN Reason: Constipation Miscellaneous Information (Remove Patch) 0 ea TRDERM ONETIME ONE Stop: 12/26/16 12:16 Morphine Sulfate (Morphine) 2 mg IVPUSH Q2H PRN PRN Reason: Pain (moderate 4-6) Multivitamins (Thera) 1 each PO DAILY [facility] Last Admin: 12/24/16 09:16 Dose: 1 each Ondansetron HCl (Zofran) 4 mg IVPUSH Q8H PRN PRN Reason: Nausea Last Admin: 12/23/16 23:14 Dose: 4 mg Admin: 12/23/16 15:03 Dose: 4 mg Albuterol (Proventil () Inhaler) 0 each INH Q4H PRN PRN Reason: sob/wheeze Last Admin: 12/24/16 14:33 Dose: 2 each Budesonide/Formoterol 80-4.5 Mcg/Puff Inhaler 0 each INH BID [facility] Last Admin: 12/24/16 09:05 Dose: Senna (Senna) 8.6 mg PO BID PRN PRN Reason: Constipation Sodium Chloride (Saline Flush) 10 ml FLUSH ASDIRECTED PRN PRN Reason: Keep Vein Open Tamsulosin HCl (Flomax) 0.4 mg PO BEDTIME [facility] Last Admin: 12/23/16 22:19 Dose: 0.4 mg - Assessment Assessment (Free Text/Narrative):: POD#1 - left [place]IGUELITO - Plan Plan (Free Text/Narrative):: 1. The pt would benefit from additional therapy and will remain in Hospital for continued therapy. 2. Likely discharge tomorrow. 3. 325mg ASA BID. 4. Hgb 12.[address] Armstrong evaluated the pt today.
[2016-12-24] MEDS: Tamsulosin 0.4 MG Cap.ER PO SCH (20:14)
[2016-12-25] MEDS: Acetaminophen/HYDROcodone 325-5 MG Tab PO PRN ×2 (03:58→14:16)
[2016-12-25] MEDS: Levothyroxine 50 MCG Tab PO SCH (05:08)
--- NOTE | 2016-12-25 06:49 | PCM.CONSN ---
- General Info Date of Service: 12/25/16 Admission Dx/Problem (Free Text): Admission Diagnosis/Problem Admission Diagnosis/Problem Osteoarthritis of hip POD #[address] Armstrong N/V resolved Pain under good control. Patient did well with therapies yesterday. Plans for DC home with today. Functional Status: Reports: pain controlled, tolerating diet, ambulating, urinating. Denies: new symptoms - Review of Systems General: Reports: No Symptoms HEENT: Reports: no symptoms Pulmonary: Reports: no symptoms Cardiovascular: Reports: No Symptoms Gastrointestinal: Reports: No symptoms Genitourinary: Reports: no symptoms Musculoskeletal: Reports: leg pain Skin: Reports: no symptoms Neurological: Reports: No Symptoms Psychiatric: Reports: no symptoms - Patient Data Vitals - most recent: Last Vital Signs Temp 98.4 F 12/25/16 04:02 Pulse 85 12/25/16 04:01 Resp 18 12/25/16 04:02 BP 135/47 L 12/25/16 04:02 Pulse Ox 92 L 12/25/16 04:01 Weight - most recent: 177 lb 4.8 oz I&O - last 24 hours: Intake & Output 12/24/16 12/24/16 12/25/16 14:59 22:59 06:59 Intake Total 0 830 1200 Output Total 1900 2900 Balance 0 -1070 -1700 Lab Results last 24 hrs: Laboratory Results - last 24 hr 12/24/16 12/24/16 12/25/16 Range/Units 06:02 06:02 05:02 WBC 11.97 H (4.23-9.07) K/mm3 RBC 4.21 L (4.63-6.08) M/mm3 Hgb 12.4 L (13.7-17.5) gm/L Hct 36.4 L (40.1-51.0) % MCV 86.5 (79.0-92.2) fl MCH 29.5 (25.7-32.2) pg MCHC 34.1 (32.2-35.5) g/dl RDW Std Deviation 41.0 (35.1-43.9) fL Plt Count 190 (163-337) K/mm3 MPV 9.8 (9.4-12.3) fl Neut % (Auto) 80.4 H (34.0-67.9) % Lymph % (Auto) 9.3 L (21.8-53.1) % Angelina % (Auto) 9.7 (5.3-12.2) % Eos % (Auto) 0.3 L (0.8-7.0) Baso % (Auto) 0.1 (0.1-1.2) % Neut # (Auto) 9.63 H (1.78-5.38) K/mm3 Lymph # (Auto) 1.11 L (1.32-3.57) K/mm3 Angelina # (Auto) 1.16 H (0.30-0.82) K/mm3 Eos # (Auto) 0.04 (0.04-0.54) K/mm3 Baso # (Auto) 0.01 (0.01-0.08) K/mm3 Manual Slide Review Normal smear Sodium 140 144 (136-145) mEq/L Potassium 3.8 3.9 (3.5-5.1) mEq/L Chloride 105 107 (98-107) mEq/L Carbon Dioxide 27 28 (21-32) mEq/L Anion Gap 11.8 12.9 (5-15) BUN 14 15 (7-18) mg/dL Creatinine 1.2 1.3 (0.7-1.3) mg/dL Est Cr Clr Drug Dosing 47.31 43.68 mL/min Estimated GFR (MDRD) 58 53 (>60) mL/min BUN/Creatinine Ratio 11.7 L 11.5 L (14-18) Glucose 133 H 136 H (83-115) mg/dL Calcium 8.3 L 8.1 L (8.5-10.1) mg/dL Total Bilirubin 0.5 0.7 (0.2-1.0) mg/dL AST 57 H 42 H (15-37) U/L ALT 90 H 53 (16-63) U/L Alkaline Phosphatase 79 83 (46-116) U/L Total Protein 6.4 6.7 (6.4-8.2) g/dl Albumin 3.4 3.4 (3.4-5.0) g/dl Globulin 3.0 3.3 gm/dL Albumin/Globulin Ratio 1.1 1.0 (1-2) Med Orders - Current: Current Medications Hydrocodone Bitart/Acetaminophen ([place] 325-5 Mg) 1 - 2 tab PO Q4H PRN PRN Reason: Pain Last Admin: 12/25/16 03:58 Dose: 2 tab Amlodipine Besylate (Norvasc) 10 mg PO DAILY [facility] Last Admin: 12/24/16 12:21 Dose: 10 mg Aspirin (Ecotrin) 325 mg PO BID [facility] Last Admin: 12/24/16 20:14 Dose: 325 mg Bisacodyl (Dulcolax) 5 mg PO DAILY PRN PRN Reason: Constipation Clobetasol Propionate (Clobetasol 0.05%) 0 gm TOP BID PRN PRN Reason: itching Docusate Sodium (Colace) 100 mg PO BID [facility] Last Admin: 12/24/16 20:14 Dose: 100 mg Famotidine (Pepcid) 20 mg PO BID [facility] Last Admin: 12/24/16 20:14 Dose: 20 mg Levothyroxine Sodium (Synthroid) 50 mcg PO ACBREAKFAST [facility] Last Admin: 12/25/16 05:08 Dose: 50 mcg Magnesium Hydroxide (Milk Of Magnesia) 30 ml PO BID PRN PRN Reason: Constipation Miscellaneous Information (Remove Patch) 0 ea TRDERM ONETIME ONE Stop: 12/26/16 12:16 Morphine Sulfate (Morphine) 2 mg IVPUSH Q2H PRN PRN Reason: Pain (moderate 4-6) Multivitamins (Thera) 1 each PO DAILY [facility] Last Admin: 12/24/16 09:16 Dose: 1 each Ondansetron HCl (Zofran) 4 mg IVPUSH Q8H PRN PRN Reason: Nausea Last Admin: 12/23/16 23:14 Dose: 4 mg Albuterol (Proventil () Inhaler) 0 each INH Q4H PRN PRN Reason: sob/wheeze Last Admin: 12/24/16 14:33 Dose: 2 each Budesonide/Formoterol 80-4.5 Mcg/Puff Inhaler 0 each INH BID [facility] Last Admin: 12/24/16 20:20 Dose: 2 each Senna (Senna) 8.6 mg PO BID PRN PRN Reason: Constipation Sodium Chloride (Saline Flush) 10 ml FLUSH ASDIRECTED PRN PRN Reason: Keep Vein Open Tamsulosin HCl (Flomax) 0.4 mg PO BEDTIME [facility] Last Admin: 12/24/16 20:14 Dose: 0.4 mg Discontinued Medications Albuterol (Proventil Neb Soln) 2.5 mg NEB ONETIME ONE Stop: 12/23/16 06:53 Last Admin: 12/23/16 07:00 Dose: 2.5 mg Albuterol (Proventil Neb Soln) Confirm Administered Dose 2.5 mg .ROUTE .STK-MED ONE Stop: 12/23/16 06:51 Last Admin: 12/23/16 07:00 Dose: Not Given Albuterol (Proventil Hfa) 0 gm INH Q4H PRN PRN Reason: sob/wheeze Last Admin: 12/24/16 08:29 Dose: 2 puff Albuterol/Ipratropium (Duoneb 3.0-0.5 Mg/3 Ml) 3 ml NEB ONETIME ONE Stop: 12/23/16 09:57 Last Admin: 12/23/16 09:59 Dose: 3 ml Albuterol/Ipratropium (Duoneb 3.0-0.5 Mg/3 Ml) Confirm Administered Dose 3 ml .ROUTE .STK-MED ONE Stop: 12/23/16 09:51 Last Admin: 12/23/16 09:59 Dose: Not Given Budesonide/Formoterol Fumarate (Symbicort 80-4.5 Mcg) 0 gm INH BID [facility] Last Admin: 12/24/16 08:30 Dose: 2 puff Budesonide/Formoterol Fumarate (Symbicort 80-4.5 Mcg) gm INH BID LEE Bupivacaine HCl (Marcaine 0.25%) Confirm Administered Dose 30 ml .ROUTE .STK- MED ONE Stop: 12/23/16 06:03 Last Admin: 12/23/16 08:24 Dose: 30 ml Cefazolin Sodium (Ancef) Confirm Administered Dose 2 gm .ROUTE .STK-MED ONE Stop: 12/23/16 06:02 Last Admin: 12/23/16 08:20 Dose: 2 gm Cefazolin Sodium (Ancef) Confirm Administered Dose 2 gm .ROUTE .STK-MED ONE Stop: 12/23/16 06:51 Morphine Sulfate 8 mg/Epinephrine HCl 0.3 mg/Cefuroxime Sodium 750 mg/Ketorolac Tromethamine 30 mg/Sodium Chloride 27.9 ml 0 mg .XX ONETIME ONE Stop: 12/23/16 09:01 Last Admin: 12/23/16 13:03 Dose: Not Given Ephedrine Sulfate (Ephedrine In Ns) Confirm Administered Dose 25 mg .ROUTE .STK- MED ONE Stop: 12/23/16 08:03 Ephedrine Sulfate (Ephedrine In Ns) Confirm Administered Dose 25 mg .ROUTE .STK- MED ONE Stop: 12/23/16 08:38 Fentanyl (Sublimaze) Confirm Administered Dose 100 mcg .ROUTE .STK-MED ONE Stop: 12/23/16 07:13 Fentanyl (Sublimaze) Confirm Administered Dose 100 mcg .ROUTE .STK-MED ONE Stop: 12/23/16 08:05 Fentanyl (Sublimaze) 50 mcg IVPUSH Q5M PRN PRN Reason: Pain Stop: 12/23/16 12:00 Last Admin: 12/23/16 09:25 Dose: 50 mcg Hydromorphone HCl (Dilaudid) Confirm Administered Dose 1 mg .ROUTE .STK-MED ONE Stop: 12/23/16 08:05 Hydromorphone HCl (Dilaudid) 0.5 mg IVPUSH Q15M PRN PRN Reason: severe pain Stop: 12/23/16 10:16 Lactated Ringer's (Ringers, Lactated) 1,000 mls @ 125 mls/hr IV ASDIRECTED [facility] Last Admin: 12/23/16 06:45 Dose: 125 mls/hr Vancomycin HCl 1 gm/ Sodium (Chloride) 250 mls @ 250 mls/hr IV ONETIME ONE Stop: 12/23/16 07:46 Last Admin: 12/23/16 13:04 Dose: Not Given Lidocaine HCl (Xylocaine-Mpf 1%) Confirm Administered Dose 4 mls @ as directed .ROUTE .STK-MED ONE Stop: 12/23/16 07:13 Vancomycin HCl 1 gm/Vancomycin HCl 500 mg/ Sodium Chloride 500 mls @ 333.333 mls/hr IV ONETIME ONE Stop: 12/23/16 08:44 Last Admin: 12/23/16 07:11 Dose: 333.333 mls/hr Cefazolin Sodium/Dextrose 2 gm (/ Premix) 50 mls @ 100 mls/hr IV Q8H [facility] Stop: 12/24/16 07:29 Last Admin: 12/24/16 06:23 Dose: 100 mls/hr Lactated Ringer's (Ringers, Lactated) Confirm Administered Dose 1,000 mls @ as directed .ROUTE .STK-MED ONE Stop: 12/23/16 08:15 Vancomycin HCl 1 gm/Vancomycin HCl 250 mg/ Sodium Chloride 250 mls @ 167 mls/ hr IV Q12H [facility] Stop: 12/24/16 08:30 Last Admin: 12/24/16 07:25 Dose: 167 mls/hr Iodine (Iodine 2% Mild Tincture) Confirm Administered Dose 30 ml .ROUTE .STK- MED ONE Stop: 12/23/16 06:02 Last Admin: 12/23/16 08:15 Dose: 18 ml Lidocaine/Sodium Bicarbonate (Buffered Lidocaine 1% In Ns 8.4%) 0.25 ml IV ONETIME PRN PRN Reason: Prior to IV Start Last Admin: 12/23/16 06:44 Dose: 0.25 ml Meperidine HCl (Demerol) 12.5 mg IVPUSH ONETIME PRN PRN Reason: shivering Stop: 12/24/16 08:10 Morphine Sulfate (Duramorph Pf) Confirm Administered Dose 10 mg .ROUTE .STK-MED ONE Stop: 12/23/16 06:51 Naloxone HCl (Narcan) 0.1 mg IVPUSH Q5M PRN PRN Reason: oversedation Stop: 12/24/16 10:01 Ondansetron HCl (Zofran) Confirm Administered Dose 4 mg .ROUTE .STK-MED ONE Stop: 12/23/16 06:50 Ondansetron HCl (Zofran) 4 mg IVPUSH ONETIME PRN PRN Reason: Nausea/Vomiting Stop: 12/23/16 12:00 Phenylephrine HCl (Phenylephrine In Ns 100 Mcg/Ml) Confirm Administered Dose 1 mg .ROUTE .STK-MED ONE Stop: 12/23/16 08:38 Propofol (Diprivan 20 Ml) Confirm Administered Dose 200 mg .ROUTE .STK-MED ONE Stop: 12/23/16 06:56 Rocuronium [place] (Zemuron) Confirm Administered Dose 50 mg .ROUTE .STK-MED ONE Stop: 12/23/16 07:13 Scopolamine (Transderm-Scop) 1.5 mg TRDERM ONETIME ONE Stop: 12/23/16 12:16 Last Admin: 12/23/16 12:14 Dose: 1.5 mg Tranexamic Acid (Cyklokapron) Confirm Administered Dose 1,000 mg .ROUTE .STK- MED ONE Stop: 12/23/16 06:02 Last Admin: 12/23/16 08:30 Dose: 1,000 mg Vancomycin HCl (Pharmacy To Dose - Vancomycin) 0 dose .XX ASDIRECTED PRN PRN Reason: RX TO DOSE POSTOP VANCOMYCIN Stop: 12/24/16 11:00 - Exam Quality Assessment: DVT prophylaxis General: alert, oriented, cooperative, no acute distress HEENT: Pupils equal, Pupils reactive, EOMI, Mucous membr. moist/pink Neck: supple Lungs: Clear to auscultation, Normal respiratory effort Cardiovascular: Regular Rate, Regular Rhythm, No Murmurs Abdomen: bowel sounds present, soft, no tenderness, no distension (Male) Exam: Deferred Extremities: no edema, no calf tenderness, other (teds and SCD's) Peripheral Pulses: 1+: Dorsalis Pedis (L), Dorsalis Pedis (R) Skin: warm, dry Wound/Incisions: dressing dry and intact Neurological: no new focal deficit Psy/Mental Status: alert, normal affect, normal mood Consult PN Assessment/Plan POD#: 2 Procedures: Procedures AIRWAY INHALATION TREATMENT (01/29/16) BLOOD TYPING SEROLOGIC ABO (01/29/16) BLOOD TYPING SEROLOGIC RH(D) (01/29/16) COMPLETE CBC W/AUTO DIFF WBC (01/29/16) COMPREHEN METABOLIC PANEL (01/29/16) EVALUATE PT USE OF INHALER (01/29/16) FLUOROSCOPE EXAMINATION (01/29/16) GAIT TRAINING THERAPY (01/29/16) MANUAL THERAPY 1/> REGIONS (05/02/16) MEASURE BLOOD OXYGEN LEVEL (01/29/16) MEASURE BLOOD OXYGEN LEVEL (01/29/16) MR-STAPH DNA AMP PROBE (01/29/16) OT EVALUATION (01/29/16) PT EVALUATION (03/01/16) RBC ANTIBODY SCREEN (01/29/16) ROUTINE VENIPUNCTURE (12/13/16) SELF CARE MNGMENT TRAINING (01/29/16) THERAPEUTIC EXERCISES (05/15/16) THROMBOPLASTIN TIME PARTIAL (12/13/16) X-RAY EXAM OF SHOULDER (01/29/16) (1) S/P total hip arthroplasty SNOMED Code(s): 792408152089, 543495151638 Code(s): Z96.649 - PRESENCE OF UNSPECIFIED ARTIFICIAL HIP JOINT Priority: High Current Visit: Yes Qualifiers: Laterality: left Qualified Code(s): Z96.642 - Presence of left artificial hip joint (2) Osteoarthritis SNOMED Code(s): 623456274 Code(s): M19.90 - UNSPECIFIED OSTEOARTHRITIS, UNSPECIFIED SITE Priority: High Current Visit: Yes Qualifiers: Osteoarthritis location: hip Osteoarthritis type: primary Laterality: left Qualified Code(s): M16.12 - Unilateral primary osteoarthritis, left hip (3) Hypothyroidism SNOMED Code(s): 45503560 Code(s): E03.9 - HYPOTHYROIDISM, UNSPECIFIED Priority: Medium Current Visit: No Qualifiers: Hypothyroidism type: unspecified Qualified Code(s): E03.9 - Hypothyroidism , unspecified (4) HTN (hypertension) SNOMED Code(s): 19179710 Code(s): I10 - ESSENTIAL (PRIMARY) HYPERTENSION Priority: Medium Current Visit: No Qualifiers: Hypertension type: essential hypertension Qualified Code(s): I10 - Essential (primary) hypertension (5) Asthma SNOMED Code(s): 223289527 Code(s): J45.909 - UNSPECIFIED ASTHMA, UNCOMPLICATED Priority: Medium Current Visit: No Qualifiers: Asthma complication type: uncomplicated Problem List Initiated/Reviewed/Updated: Yes My Orders last 24 hours: My Active Orders 12/24/16 09:00 Patient's Own Medication [Ptom] 0 each INH BID 12/24/16 09:30 Levothyroxine [Synthroid] 50 mcg PO ACBREAKFAST amLODIPine [Norvasc] 10 mg PO DAILY 12/25/16 05:02 CBC WITH AUTO DIFF [HEME] AM Plan: I/P: S/P Lt MIGUELITO with Dr. Armstrong, POD #2 -Pain management and DVT prophylax per Ortho -PT/OT-- was unable to work with PT yesterday due to n/v, ambulated x 1 this morning -IS, C&DB Postoperative nausea---resolved -Improved today -Cont with scopolamine patch and PRN zofran -Did not sleep last night d/t n/v Mild elevation of LFT's this am; likely d/t N/V. -Recheck this am with significant improvement. Chronic conditions: Hypothyroidism- cont home meds HTN- stable, cont home meds Asthma- stable, cont home meds GERD- cont home meds Hx of carotid bruit Other: DVT/GI Prophylax CM/SW for assistance with DC planning; plans dc home with . OK for dc home today with family from Hospitalist standpoint. Patient is full code status.
[2016-12-25] MEDS: BUDESONIDE INH SCH (08:45)
[2016-12-25] MEDS: FORMOTEROL INH SCH (08:45)
[2016-12-25] MEDS: amLODIPine 10 MG Tab PO SCH (09:28)
[2016-12-25] MEDS: Docusate Sodium 100 MG Cap PO SCH (09:29)
[2016-12-25] MEDS: Aspirin 325 MG Tab.EC PO SCH (09:30)
[2016-12-25] MEDS: Famotidine 20 MG Tab PO SCH (09:30)
[2016-12-25] MEDS: Multivitamins,Therapeutic Tab PO SCH (09:30)
--- NOTE | 2016-12-25 10:30 | PCM.SURGPN ---
- General Info Date of Service: 12/25/16 POD#: 2 Functional Status: Reports: pain controlled, tolerating diet, ambulating, urinating, other (The pt reports his nausea has resolved.). Denies: new symptoms - Review of Systems Musculoskeletal: Reports: other (The pt feels prepared for discharge to home.) - Patient Data Vitals - most recent: Last Vital Signs Temp 97.7 F 12/25/16 07:20 Pulse 79 12/25/16 07:20 Resp 19 12/25/16 07:20 BP 123/76 12/25/16 09:28 Pulse Ox 92 L 12/25/16 08:46 Weight - most recent: 177 lb 4.8 oz I&O - last 24 hours: Intake & Output 12/24/16 12/25/16 12/25/16 22:59 06:59 14:59 Intake Total 830 1200 210 Output Total 1900 2900 Balance -1070 -1700 210 Lab Results last 24 hrs: Laboratory Results - last 24 hr 12/25/16 12/25/16 Range/Units 05:02 05:02 WBC 11.93 H (4.23-9.07) K/mm3 RBC 4.29 L (4.63-6.08) M/mm3 Hgb 12.6 L (13.7-17.5) gm/L Hct 37.8 L (40.1-51.0) % MCV 88.1 (79.0-92.2) fl MCH 29.4 (25.7-32.2) pg MCHC 33.3 (32.2-35.5) g/dl RDW Std Deviation 42.7 (35.1-43.9) fL Plt Count 210 (163-337) K/mm3 MPV 10.0 (9.4-12.3) fl Neut % (Auto) 79.1 H (34.0-67.9) % Lymph % (Auto) 9.1 L (21.8-53.1) % [place] % (Auto) 10.7 (5.3-12.2) % Eos % (Auto) 0.5 L (0.8-7.0) Baso % (Auto) 0.3 (0.1-1.2) % Neut # (Auto) 9.44 H (1.78-5.38) K/mm3 Lymph # (Auto) 1.09 L (1.32-3.57) K/mm3 [place] # (Auto) 1.28 H (0.30-0.82) K/mm3 Eos # (Auto) 0.06 (0.04-0.54) K/mm3 Baso # (Auto) 0.03 (0.01-0.08) K/mm3 Manual Slide Review Normal smear Sodium 144 (136-145) mEq/L Potassium 3.9 (3.5-5.1) mEq/L Chloride 107 (98-107) mEq/L Carbon Dioxide 28 (21-32) mEq/L Anion Gap 12.9 (5-15) BUN 15 (7-18) mg/dL Creatinine 1.3 (0.7-1.3) mg/dL Est Cr Clr Drug Dosing 43.68 mL/min Estimated GFR (MDRD) 53 (>60) mL/min BUN/Creatinine Ratio 11.5 L (14-18) Glucose 136 H (83-115) mg/dL Calcium 8.1 L (8.5-10.1) mg/dL Total Bilirubin 0.7 (0.2-1.0) mg/dL AST 42 H (15-37) U/L ALT 53 (16-63) U/L Alkaline Phosphatase 83 (46-116) U/L Total Protein 6.7 (6.4-8.2) g/dl Albumin 3.4 (3.4-5.0) g/dl Globulin 3.3 gm/dL Albumin/Globulin Ratio 1.0 (1-2) Med Orders - Current: Current Medications Hydrocodone Bitart/Acetaminophen ([place] 325-5 Mg) 1 - 2 tab PO Q4H PRN PRN Reason: Pain Last Admin: 12/25/16 03:58 Dose: 2 tab Amlodipine Besylate (Norvasc) 10 mg PO DAILY [facility]EE Last Admin: 12/25/16 09:28 Dose: 10 mg Aspirin (Ecotrin) 325 mg PO BID [facility]EE Last Admin: 12/25/16 09:30 Dose: 325 mg Bisacodyl (Dulcolax) 5 mg PO DAILY PRN PRN Reason: Constipation Last Admin: 12/25/16 09:29 Dose: 5 mg Clobetasol Propionate (Clobetasol 0.05%) 0 gm TOP BID PRN PRN Reason: itching Docusate Sodium (Colace) 100 mg PO BID [facility] Last Admin: 12/25/16 09:29 Dose: 100 mg Famotidine (Pepcid) 20 mg PO BID [facility] Last Admin: 12/25/16 09:30 Dose: 20 mg Levothyroxine Sodium (Synthroid) 50 mcg PO ACBREAKFAST [facility] Last Admin: 12/25/16 05:08 Dose: 50 mcg Magnesium Hydroxide (Milk Of Magnesia) 30 ml PO BID PRN PRN Reason: Constipation Miscellaneous Information (Remove Patch) 0 ea TRDERM ONETIME ONE Stop: 12/26/16 12:16 Morphine Sulfate (Morphine) 2 mg IVPUSH Q2H PRN PRN Reason: Pain (moderate 4-6) Multivitamins (Thera) 1 each PO DAILY [facility] Last Admin: 12/25/16 09:30 Dose: 1 each Ondansetron HCl (Zofran) 4 mg IVPUSH Q8H PRN PRN Reason: Nausea Last Admin: 12/23/16 23:14 Dose: 4 mg Albuterol (Proventil () Inhaler) 0 each INH Q4H PRN PRN Reason: sob/wheeze Last Admin: 12/24/16 14:33 Dose: 2 each Budesonide/Formoterol 80-4.5 Mcg/Puff Inhaler 0 each INH BID [facility] Last Admin: 12/25/16 08:45 Dose: 2 each Senna (Senna) 8.6 mg PO BID PRN PRN Reason: Constipation Sodium Chloride (Saline Flush) 10 ml FLUSH ASDIRECTED PRN PRN Reason: Keep Vein Open Tamsulosin HCl (Flomax) 0.4 mg PO BEDTIME [facility] Last Admin: 12/24/16 20:14 Dose: 0.4 mg Discontinued Medications Albuterol (Proventil Neb Soln) 2.5 mg NEB ONETIME ONE Stop: 12/23/16 06:53 Last Admin: 12/23/16 07:00 Dose: 2.5 mg Albuterol (Proventil Neb Soln) Confirm Administered Dose 2.5 mg .ROUTE .STK-MED ONE Stop: 12/23/16 06:51 Last Admin: 12/23/16 07:00 Dose: Not Given Albuterol (Proventil Hfa) 0 gm INH Q4H PRN PRN Reason: sob/wheeze Last Admin: 12/24/16 08:29 Dose: 2 puff Albuterol/Ipratropium (Duoneb 3.0-0.5 Mg/3 Ml) 3 ml NEB ONETIME ONE Stop: 12/23/16 09:57 Last Admin: 12/23/16 09:59 Dose: 3 ml Albuterol/Ipratropium (Duoneb 3.0-0.5 Mg/3 Ml) Confirm Administered Dose 3 ml .ROUTE .STK-MED ONE Stop: 12/23/16 09:51 Last Admin: 12/23/16 09:59 Dose: Not Given Budesonide/Formoterol Fumarate (Symbicort 80-4.5 Mcg) 0 gm INH BID [facility] Last Admin: 12/24/16 08:30 Dose: 2 puff Budesonide/Formoterol Fumarate (Symbicort 80-4.5 Mcg) gm INH BID [facility] Bupivacaine HCl (Marcaine 0.25%) Confirm Administered Dose 30 ml .ROUTE .STK- MED ONE Stop: 12/23/16 06:03 Last Admin: 12/23/16 08:24 Dose: 30 ml Cefazolin Sodium (Ancef) Confirm Administered Dose 2 gm .ROUTE .STK-MED ONE Stop: 12/23/16 06:02 Last Admin: 12/23/16 08:20 Dose: 2 gm Cefazolin Sodium (Ancef) Confirm Administered Dose 2 gm .ROUTE .STK-MED ONE Stop: 12/23/16 06:51 Morphine Sulfate 8 mg/Epinephrine HCl 0.3 mg/Cefuroxime Sodium 750 mg/Ketorolac Tromethamine 30 mg/Sodium Chloride 27.9 ml 0 mg .XX ONETIME ONE Stop: 12/23/16 09:01 Last Admin: 12/23/16 13:03 Dose: Not Given Ephedrine Sulfate (Ephedrine In Ns) Confirm Administered Dose 25 mg .ROUTE .STK- MED ONE Stop: 12/23/16 08:03 Ephedrine Sulfate (Ephedrine In Ns) Confirm Administered Dose 25 mg .ROUTE .STK- MED ONE Stop: 12/23/16 08:38 Fentanyl (Sublimaze) Confirm Administered Dose 100 mcg .ROUTE .STK-MED ONE Stop: 12/23/16 07:13 Fentanyl (Sublimaze) Confirm Administered Dose 100 mcg .ROUTE .STK-MED ONE Stop: 12/23/16 08:05 Fentanyl (Sublimaze) 50 mcg IVPUSH Q5M PRN PRN Reason: Pain Stop: 12/23/16 12:00 Last Admin: 12/23/16 09:25 Dose: 50 mcg Hydromorphone HCl (Dilaudid) Confirm Administered Dose 1 mg .ROUTE .STK-MED ONE Stop: 12/23/16 08:05 Hydromorphone HCl (Dilaudid) 0.5 mg IVPUSH Q15M PRN PRN Reason: severe pain Stop: 12/23/16 10:16 Lactated Ringer's (Ringers, Lactated) 1,000 mls @ 125 mls/hr IV ASDIRECTED [facility] Last Admin: 12/23/16 06:45 Dose: 125 mls/hr Vancomycin HCl 1 gm/ Sodium (Chloride) 250 mls @ 250 mls/hr IV ONETIME ONE Stop: 12/23/16 07:46 Last Admin: 12/23/16 13:04 Dose: Not Given Lidocaine HCl (Xylocaine-Mpf 1%) Confirm Administered Dose 4 mls @ as directed .ROUTE .STK-MED ONE Stop: 12/23/16 07:13 Vancomycin HCl 1 gm/Vancomycin HCl 500 mg/ Sodium Chloride 500 mls @ 333.333 mls/hr IV ONETIME ONE Stop: 12/23/16 08:44 Last Admin: 12/23/16 07:11 Dose: 333.333 mls/hr Cefazolin Sodium/Dextrose 2 gm (/ Premix) 50 mls @ 100 mls/hr IV Q8H [facility] Stop: 12/24/16 07:29 Last Admin: 12/24/16 06:23 Dose: 100 mls/hr Lactated Ringer's (Ringers, Lactated) Confirm Administered Dose 1,000 mls @ as directed .ROUTE .STK-MED ONE Stop: 12/23/16 08:15 Vancomycin HCl 1 gm/Vancomycin HCl 250 mg/ Sodium Chloride 250 mls @ 167 mls/ hr IV Q12H [facility] Stop: 12/24/16 08:30 Last Admin: 12/24/16 07:25 Dose: 167 mls/hr Iodine (Iodine 2% Mild Tincture) Confirm Administered Dose 30 ml .ROUTE .STK- MED ONE Stop: 12/23/16 06:02 Last Admin: 12/23/16 08:15 Dose: 18 ml Lidocaine/Sodium Bicarbonate (Buffered Lidocaine 1% In Ns 8.4%) 0.25 ml IV ONETIME PRN PRN Reason: Prior to IV Start Last Admin: 12/23/16 06:44 Dose: 0.25 ml Meperidine HCl (Demerol) 12.5 mg IVPUSH ONETIME PRN PRN Reason: shivering Stop: 12/24/16 08:10 Morphine Sulfate (Duramorph Pf) Confirm Administered Dose 10 mg .ROUTE .STK-MED ONE Stop: 12/23/16 06:51 Naloxone HCl (Narcan) 0.1 mg IVPUSH Q5M PRN PRN Reason: oversedation Stop: 12/24/16 10:01 Ondansetron HCl (Zofran) Confirm Administered Dose 4 mg .ROUTE .STK-MED ONE Stop: 12/23/16 06:50 Ondansetron HCl (Zofran) 4 mg IVPUSH ONETIME PRN PRN Reason: Nausea/Vomiting Stop: 12/23/16 12:00 Phenylephrine HCl (Phenylephrine In Ns 100 Mcg/Ml) Confirm Administered Dose 1 mg .ROUTE .STK-MED ONE Stop: 12/23/16 08:38 Propofol (Diprivan 20 Ml) Confirm Administered Dose 200 mg .ROUTE .STK-MED ONE Stop: 12/23/16 06:56 Rocuronium [place] (Zemuron) Confirm Administered Dose 50 mg .ROUTE .STK-MED ONE Stop: 12/23/16 07:13 Scopolamine (Transderm-Scop) 1.5 mg TRDERM ONETIME ONE Stop: 12/23/16 12:16 Last Admin: 12/23/16 12:14 Dose: 1.5 mg Tranexamic Acid (Cyklokapron) Confirm Administered Dose 1,000 mg .ROUTE .STK- MED ONE Stop: 12/23/16 06:02 Last Admin: 12/23/16 08:30 Dose: 1,000 mg Vancomycin HCl (Pharmacy To Dose - Vancomycin) 0 dose .XX ASDIRECTED PRN PRN Reason: RX TO DOSE POSTOP VANCOMYCIN Stop: 12/24/16 11:00 - Exam Wound/Incisions: dressing dry and intact General: alert, cooperative, no acute distress Lungs: Normal respiratory effort Extremities: normal pulses, no calf tenderness (Left thigh soft and nontender.) - Problem List Review Problem List Initiated/Reviewed/Updated: Yes - My Orders Last 24 Hours: Active Orders 24 hr Category Date Time Status Levothyroxine [Synthroid] Med 12/24/16 09:30 Active 50 mcg PO ACBREAKFAST Remove Patch Med 12/26/16 12:15 Once 0 ea TRDERM ONETIME ONE amLODIPine [Norvasc] Med 12/24/16 09:30 Active 10 mg PO DAILY Medication Orders Hydrocodone Bitart/Acetaminophen ([place] 325-5 Mg) 1 - 2 tab PO Q4H PRN PRN Reason: Pain Last Admin: 12/25/16 03:58 Dose: 2 tab Admin: 12/23/16 22:19 Dose: 2 tab Amlodipine Besylate (Norvasc) 10 mg PO DAILY [facility] Last Admin: 12/25/16 09:28 Dose: 10 mg Admin: 12/24/16 12:21 Dose: 10 mg Aspirin (Ecotrin) 325 mg PO BID [facility] Last Admin: 12/25/16 09:30 Dose: 325 mg Admin: 12/24/16 20:14 Dose: 325 mg Admin: 12/24/16 09:15 Dose: 325 mg Bisacodyl (Dulcolax) 5 mg PO DAILY PRN PRN Reason: Constipation Last Admin: 12/25/16 09:29 Dose: 5 mg Clobetasol Propionate (Clobetasol 0.05%) 0 gm TOP BID PRN PRN Reason: itching Docusate Sodium (Colace) 100 mg PO BID [facility] Last Admin: 12/25/16 09:29 Dose: 100 mg Admin: 12/24/16 20:14 Dose: 100 mg Admin: 12/24/16 09:15 Dose: 100 mg Admin: 12/23/16 22:19 Dose: 100 mg Famotidine (Pepcid) 20 mg PO BID [facility] Last Admin: 12/25/16 09:30 Dose: 20 mg Admin: 12/24/16 20:14 Dose: 20 mg Admin: 12/24/16 09:16 Dose: 20 mg Admin: 12/23/16 22:19 Dose: 20 mg Levothyroxine Sodium (Synthroid) 50 mcg PO ACBREAKFAST [facility] Last Admin: 12/25/16 05:08 Dose: 50 mcg Admin: 12/24/16 12:24 Dose: 50 mcg Magnesium Hydroxide (Milk Of Magnesia) 30 ml PO BID PRN PRN Reason: Constipation Miscellaneous Information (Remove Patch) 0 ea TRDERM ONETIME ONE Stop: 12/26/16 12:16 Morphine Sulfate (Morphine) 2 mg IVPUSH Q2H PRN PRN Reason: Pain (moderate 4-6) Multivitamins (Thera) 1 each PO DAILY [facility] Last Admin: 12/25/16 09:30 Dose: 1 each Admin: 12/24/16 09:16 Dose: 1 each Ondansetron HCl (Zofran) 4 mg IVPUSH Q8H PRN PRN Reason: Nausea Last Admin: 12/23/16 23:14 Dose: 4 mg Admin: 12/23/16 15:03 Dose: 4 mg Albuterol (Proventil () Inhaler) 0 each INH Q4H PRN PRN Reason: sob/wheeze Last Admin: 12/24/16 14:33 Dose: 2 each Budesonide/Formoterol 80-4.5 Mcg/Puff Inhaler 0 each INH BID [facility] Last Admin: 12/25/16 08:45 Dose: 2 each Admin: 12/24/16 20:20 Dose: 2 each Admin: 12/24/16 09:05 Dose: Senna (Senna) 8.6 mg PO BID PRN PRN Reason: Constipation Sodium Chloride (Saline Flush) 10 ml FLUSH ASDIRECTED PRN PRN Reason: Keep Vein Open Tamsulosin HCl (Flomax) 0.4 mg PO BEDTIME [facility] Last Admin: 12/24/16 20:14 Dose: 0.4 mg Admin: 12/23/16 22:19 Dose: 0.4 mg - Assessment Assessment (Free Text/Narrative):: POD#2 - left MIGUELITO - Plan Plan (Free Text/Narrative):: 1. Discharge to home today. The pt will have the assistance of his . 2. 325mg ASA. TEDs. Frequent mobility. 3. MIGUELITO precautions. The pt's case was discussed with Dr. Armstrong.
[2016-12-25 12:23] VITALS: BP 146/73
--- NOTE | 2016-12-31 09:11 | OR ---
DATE OF OPERATION: 12/23/2016 SURGEON: Mamadou Armstrong MD OPERATION PROCEDURE: Left hip arthroplasty. PREOPERATIVE DIAGNOSIS: Left hip osteoarthrosis. POSTOPERATIVE DIAGNOSIS: Left hip osteoarthrosis. ANESTHESIA: General endotracheal intubation with local. ANESTHESIA PROVIDER: Leslie Gaspar CRNA. ASSISTANTS: Dina Hinkle PA-C and Trixie Gonzales LPN. ESTIMATED BLOOD LOSS: 350 mL. COMPLICATIONS: None. CONDITION: Stable. IMPLANTS: 1. Sis size 7 Accolate II stem. 2. [place] size 54-mm Tritanium solid acetabular cup. 3. A 36 mm, 10-degree elevated liner. 4. A 36 +5 mm Biolox II ceramic femoral head. DESCRIPTION OF PROCEDURE: The patient was identified in the preoperative holding area. Proper site was marked and identified by the surgeon. The patient was taken back to the operating theater where after adequate anesthesia, the patient was placed in the right lateral decubitus position and the left hip was parallel to the floor. Pegs and axillary roll were placed and all bony prominences were well padded. At this time, the hip was then sterilely prepped and draped in the usual sterile fashion. OR time-out was performed. The patient received 2 g IV Ancef. Standard incision was made over the greater trochanter. This was taken down to the IT band and gluteal fascia was then incised along the incisional length. Charnley retractor was then placed, short external rotators were identified, and gluteus medius and minimus were protected. Short external rotators were then taken down to the level of lesser trochanter as well as capsulotomy. At this time, the hip was dislocated and neck cut was then completed. Attention was turned to the acetabulum and anterior-posterior acetabular retractors were then placed. The labrum was then removed along with the pulvinar starting with a 47 reamer, I was able to ream up to a 54 for a 54-mm cup. The trial was found to have adequate fixation. At this time, a 54-mm Tritanium acetabular solid cup was then impacted into place in roughly 45 degrees of abduction and 10 to 20 degrees of anteversion. At this time, a 36 mm, 10-degree elevated liner was then impacted into place. Attention was turned to the femur. The femoral elevator was placed. Box chisel was used out laterally. Starter awl was placed down the canal. Starting with a 0 broach, I was able to broach up to a size 7 stem, which was found to be rotationally and vertically stable. At this time, trial components were placed with a 36 mm +5 head. It was found have equal leg lengths and stable throughout range of motion. The hip was then dislocated. The size 7 Accolate II stem was impacted into place with 127-degree neck and a 36 +5 mm head was impacted into place. Hip was then relocated. A 1 L dilute Betadine solution was then irrigated through the hip along with 3 L pulse lavage irrigation with Ancef. Periarticular injection was then completed. Two #5 Ethibond sutures were used for closure of short external rotators and capsule. A #2 barbed suture was used for closure of the IT band and gluteal fascia, 2-0 Vicryl was used subcutaneously, and Prineo was used for the skin. The patient tolerated the procedure well and sent to PACU in stable condition. OPERATION PERFORMED: BECKY /[id number]
--- NOTE | 2016-12-31 15:57 | PCM.DCSUM1 ---
Discharge Summary - Hospital Course Brief History: Steven is an 86 yo male who underwent left MIGUELITO with Dr. Armstrong on . The procedure was completed under general anesthesia. The pt tolerated the procedure well and was admitted to the Medical-Surgical Unit. Medical management was provided by the Hospitalist service. The pt's Hospital course was remarkable for urinary retention with resolved with time. The pt's Hgb on POD#1 was 12.4. On POD#1, 325mg aspirin BID was initiated for VTE prophylaxis. A Mepilex dressing was placed at the incision site at the time of surgery and remained clean and dry. The pt participated in P.T. and O.T. and progressed well. He followed the MIGUELITO precautions. The pt was allowed to WBAT and he used a FWW for mobility. On POD#2, the pt was deemed appropriate to discharge to home with his . - Discharge Data Discharge Date: 12/25/16 Discharge Disposition: Home, Self-Care 01 Condition: Good - Patient Summary/Data Operative Procedure(s) Performed: left total hip arthroplasty Consults: Consultations 12/23/16 06:58 Consult to Physician [CONS] Routine OT Evaluation and Treatment [CONS] Routine PT Evaluation and Treatment [CONS] Routine - Patient Instructions Diet: Usual Diet as Tolerated Activity: Apply Ice, As Tolerated, Elevate Extremity, Full Weight Bearing Activity, Other: Total hip precautions. Driving: Do Not Drive Showering/Bathing: May Shower Showering/Bathing, Other: Keep the dressing in place with showering. Wound/Incision Care: Keep Operative Site/Wound Site Clean and Dry, Do NOT Change Dressing Notify Provider of: Fever, Increased Pain, Swelling and Redness, Drainage, Nausea and/or Vomiting Other/Special Instructions: Please get up and moving around every hour while awake. This helps to prevent blood clots. Please use your walker and have help with mobility as needed. Please take a 325mg ASPIRIN TWICE DAILY. This also helps to prevent blood clots. Follow the hip precautions that were instructed in the Hospital. You may schedule for P.T. Use the pain medication as needed. The medication may cause drowsiness and constipation. Contact your primary care provider for instructions if you are constipated. You may use a stool softener like docusate sodium or Colace 100mg twice daily and/or a laxative like Miralax daily for constipation. Wear the MOHAMUD hose during the day and you may remove these at night. Place ice to the hip often. Place a towel between your skin and the blue pad. Schedule an appointment with your primary care provider for 'routine post-op care'. Call the Clinic with questions or concerns - [phone]. - Discharge Plan Prescriptions/Med Rec: Acetaminophen/HYDROcodone [Tenino 325-5 MG] 1 - 2 tab PO Q4H PRN #60 tablet PRN Reason: Pain Aspirin [Ecotrin] 325 mg PO BID #70 tab.ec Home Medications: Home Meds Albuterol [IJD: Ventolin HFA] 2 inh PO ASDIRECTED PRN 01/25/16 [History] Budesonide/Formoterol Fumarate [Symbicort 80-4.5 Mcg Inhaler] 2 inh PO BID 01/24 [History] Clobetasol [Clobetasol 0.05%] 1 ea TOP ASDIRECTED PRN 01/25/16 [History] Omeprazole 20 mg PO DAILY 01/25/16 [History] amLODIPine Besylate [Amlodipine Besylate] 10 mg PO DAILY 01/25/16 [History] Levothyroxine [Synthroid] 50 mcg PO DAILY 12/20/16 [History] Tamsulosin HCl PO DAILY 12/23/16 [History] Acetaminophen/HYDROcodone [Tenino 325-5 MG] 1 - 2 tab PO Q4H PRN #60 tablet 12/25 [Rx] Aspirin [Ecotrin] 325 mg PO BID #70 tab.ec 12/25/16 [Rx] Patient Handouts: Total Hip Replacement, [id number], Total Hip Replacement, Care After, [id number] Referrals: Dina Hinkle PA-C [Physician Kiln Door Repairer] - 12/31/16 9:45 am (Please follow up with Physician Kiln Door Repairer Dina Hinkle on December 31, 2016 at 945AM and January 07, 2017 at 145pm) - Patient Data Vitals - Most Recent: Last Vital Signs Temp 97.5 F 12/25/16 12:20 Pulse 85 12/25/16 12:20 Resp 16 12/25/16 12:20 BP 146/73 H 12/25/16 12:20 Pulse Ox 91 L 12/25/16 13:33 Weight - Most Recent: 177 lb 4.8 oz Med Orders - Current: Current Medications Discontinued Medications Hydrocodone Bitart/Acetaminophen (Tenino 325-5 Mg) 1 - 2 tab PO Q4H PRN PRN Reason: Pain Last Admin: 12/25/16 14:16 Dose: 1 tab Albuterol (Proventil Neb Soln) 2.5 mg NEB ONETIME ONE Stop: 12/23/16 06:53 Last Admin: 12/23/16 07:00 Dose: 2.5 mg Albuterol (Proventil Neb Soln) Confirm Administered Dose 2.5 mg .ROUTE .STK-MED ONE Stop: 12/23/16 06:51 Last Admin: 12/23/16 07:00 Dose: Not Given Albuterol (Proventil Hfa) 0 gm INH Q4H PRN PRN Reason: sob/wheeze Last Admin: 12/24/16 08:29 Dose: 2 puff Albuterol/Ipratropium (Duoneb 3.0-0.5 Mg/3 Ml) 3 ml NEB ONETIME ONE Stop: 12/23/16 09:57 Last Admin: 12/23/16 09:59 Dose: 3 ml Albuterol/Ipratropium (Duoneb 3.0-0.5 Mg/3 Ml) Confirm Administered Dose 3 ml .ROUTE .STK-MED ONE Stop: 12/23/16 09:51 Last Admin: 12/23/16 09:59 Dose: Not Given Amlodipine Besylate (Norvasc) 10 mg PO DAILY [facility] Last Admin: 12/25/16 09:28 Dose: 10 mg Aspirin (Ecotrin) 325 mg PO BID [facility] Last Admin: 12/25/16 09:30 Dose: 325 mg Bisacodyl (Dulcolax) 5 mg PO DAILY PRN PRN Reason: Constipation Last Admin: 12/25/16 09:29 Dose: 5 mg Budesonide/Formoterol Fumarate (Symbicort 80-4.5 Mcg) 0 gm INH BID [facility] Last Admin: 12/24/16 08:30 Dose: 2 puff Budesonide/Formoterol Fumarate (Symbicort 80-4.5 Mcg) gm INH BID [facility] Bupivacaine HCl (Marcaine 0.25%) Confirm Administered Dose 30 ml .ROUTE .STK- MED ONE Stop: 12/23/16 06:03 Last Admin: 12/23/16 08:24 Dose: 30 ml Cefazolin Sodium (Ancef) Confirm Administered Dose 2 gm .ROUTE .STK-MED ONE Stop: 12/23/16 06:02 Last Admin: 12/23/16 08:20 Dose: 2 gm Cefazolin Sodium (Ancef) Confirm Administered Dose 2 gm .ROUTE .STK-MED ONE Stop: 12/23/16 06:51 Clobetasol Propionate (Clobetasol 0.05%) 0 gm TOP BID PRN PRN Reason: itching Morphine Sulfate 8 mg/Epinephrine HCl 0.3 mg/Cefuroxime Sodium 750 mg/Ketorolac Tromethamine 30 mg/Sodium Chloride 27.9 ml 0 mg .XX ONETIME ONE Stop: 12/23/16 09:01 Last Admin: 12/23/16 13:03 Dose: Not Given Docusate Sodium (Colace) 100 mg PO BID [facility] Last Admin: 12/25/16 09:29 Dose: 100 mg Ephedrine Sulfate (Ephedrine In Ns) Confirm Administered Dose 25 mg .ROUTE .STK- MED ONE Stop: 12/23/16 08:03 Ephedrine Sulfate (Ephedrine In Ns) Confirm Administered Dose 25 mg .ROUTE .STK- MED ONE Stop: 12/23/16 08:38 Famotidine (Pepcid) 20 mg PO BID [facility] Last Admin: 12/25/16 09:30 Dose: 20 mg Fentanyl (Sublimaze) Confirm Administered Dose 100 mcg .ROUTE .STK-MED ONE Stop: 12/23/16 07:13 Fentanyl (Sublimaze) Confirm Administered Dose 100 mcg .ROUTE .STK-MED ONE Stop: 12/23/16 08:05 Fentanyl (Sublimaze) 50 mcg IVPUSH Q5M PRN PRN Reason: Pain Stop: 12/23/16 12:00 Last Admin: 12/23/16 09:25 Dose: 50 mcg Hydromorphone HCl (Dilaudid) Confirm Administered Dose 1 mg .ROUTE .STK-MED ONE Stop: 12/23/16 08:05 Hydromorphone HCl (Dilaudid) 0.5 mg IVPUSH Q15M PRN PRN Reason: severe pain Stop: 12/23/16 10:16 Lactated Ringer's (Ringers, Lactated) 1,000 mls @ 125 mls/hr IV ASDIRECTED [facility] Last Admin: 12/23/16 06:45 Dose: 125 mls/hr Vancomycin HCl 1 gm/ Sodium (Chloride) 250 mls @ 250 mls/hr IV ONETIME ONE Stop: 12/23/16 07:46 Last Admin: 12/23/16 13:04 Dose: Not Given Lidocaine HCl (Xylocaine-Mpf 1%) Confirm Administered Dose 4 mls @ as directed .ROUTE .STK-MED ONE Stop: 12/23/16 07:13 Vancomycin HCl 1 gm/Vancomycin HCl 500 mg/ Sodium Chloride 500 mls @ 333.333 mls/hr IV ONETIME ONE Stop: 12/23/16 08:44 Last Admin: 12/23/16 07:11 Dose: 333.333 mls/hr Cefazolin Sodium/Dextrose 2 gm (/ Premix) 50 mls @ 100 mls/hr IV Q8H [facility] Stop: 12/24/16 07:29 Last Admin: 12/24/16 06:23 Dose: 100 mls/hr Lactated Ringer's (Ringers, Lactated) Confirm Administered Dose 1,000 mls @ as directed .ROUTE .STK-MED ONE Stop: 12/23/16 08:15 Vancomycin HCl 1 gm/Vancomycin HCl 250 mg/ Sodium Chloride 250 mls @ 167 mls/ hr IV Q12H [facility] Stop: 12/24/16 08:30 Last Admin: 12/24/16 07:25 Dose: 167 mls/hr Iodine (Iodine 2% Mild Tincture) Confirm Administered Dose 30 ml .ROUTE .STK- MED ONE Stop: 12/23/16 06:02 Last Admin: 12/23/16 08:15 Dose: 18 ml Levothyroxine Sodium (Synthroid) 50 mcg PO ACBREAKFAST [facility] Last Admin: 12/25/16 05:08 Dose: 50 mcg Lidocaine/Sodium Bicarbonate (Buffered Lidocaine 1% In Ns 8.4%) 0.25 ml IV ONETIME PRN PRN Reason: Prior to IV Start Last Admin: 12/23/16 06:44 Dose: 0.25 ml Magnesium Hydroxide (Milk Of Magnesia) 30 ml PO BID PRN PRN Reason: Constipation Meperidine HCl (Demerol) 12.5 mg IVPUSH ONETIME PRN PRN Reason: shivering Stop: 12/24/16 08:10 Miscellaneous Information (Remove Patch) 0 ea TRDERM ONETIME ONE Stop: 12/26/16 12:16 Morphine Sulfate (Duramorph Pf) Confirm Administered Dose 10 mg .ROUTE .STK-MED ONE Stop: 12/23/16 06:51 Morphine Sulfate (Morphine) 2 mg IVPUSH Q2H PRN PRN Reason: Pain (moderate 4-6) Multivitamins (Thera) 1 each PO DAILY [facility] Last Admin: 12/25/16 09:30 Dose: 1 each Naloxone HCl (Narcan) 0.1 mg IVPUSH Q5M PRN PRN Reason: oversedation Stop: 12/24/16 10:01 Ondansetron HCl (Zofran) Confirm Administered Dose 4 mg .ROUTE .STK-MED ONE Stop: 12/23/16 06:50 Ondansetron HCl (Zofran) 4 mg IVPUSH ONETIME PRN PRN Reason: Nausea/Vomiting Stop: 12/23/16 12:00 Ondansetron HCl (Zofran) 4 mg IVPUSH Q8H PRN PRN Reason: Nausea Last Admin: 12/23/16 23:14 Dose: 4 mg Albuterol (Proventil () Inhaler) 0 each INH Q4H PRN PRN Reason: sob/wheeze Last Admin: 12/24/16 14:33 Dose: 2 each Budesonide/Formoterol 80-4.5 Mcg/Puff Inhaler 0 each INH BID [facility] Last Admin: 12/25/16 08:45 Dose: 2 each Phenylephrine HCl (Phenylephrine In Ns 100 Mcg/Ml) Confirm Administered Dose 1 mg .ROUTE .STK-MED ONE Stop: 12/23/16 08:38 Propofol (Diprivan 20 Ml) Confirm Administered Dose 200 mg .ROUTE .STK-MED ONE Stop: 12/23/16 06:56 Rocuronium [place] (Zemuron) Confirm Administered Dose 50 mg .ROUTE .STK-MED ONE Stop: 12/23/16 07:13 Scopolamine (Transderm-Scop) 1.5 mg TRDERM ONETIME ONE Stop: 12/23/16 12:16 Last Admin: 12/23/16 12:14 Dose: 1.5 mg Senna (Senna) 8.6 mg PO BID PRN PRN Reason: Constipation Sodium Chloride (Saline Flush) 10 ml FLUSH ASDIRECTED PRN PRN Reason: Keep Vein Open Tamsulosin HCl (Flomax) 0.4 mg PO BEDTIME LEE Last Admin: 12/24/16 20:14 Dose: 0.4 mg Tranexamic Acid (Cyklokapron) Confirm Administered Dose 1,000 mg .ROUTE .STK- MED ONE Stop: 12/23/16 06:02 Last Admin: 12/23/16 08:30 Dose: 1,000 mg Vancomycin HCl (Pharmacy To Dose - Vancomycin) 0 dose .XX ASDIRECTED PRN PRN Reason: RX TO DOSE POSTOP VANCOMYCIN Stop: 12/24/16 11:00 *Q Meaningful Use (DIS) - VTE *Q VTE Criteria *Q: - Stroke *Q Stroke Criteria *Q: - AMI *Q AMI Criteria *Q:
== END 2016-12-25 14:48 | disposition home or self-care (01) | DRG 470 ==
LOC: JD.MS 06:02
PROVIDERS: ADMIT Orthopaedic Surgery; ATTEND Orthopaedic Surgery
PROC: 0SRB03A Replacement of Left Hip Joint with Ceramic Synthetic Substitute, Uncemented, Open Approach (ICD-10-PCS; principal; 2016-12-23)
DX: M16.12 Unilateral primary osteoarthritis, left hip (principal); I10 Essential (primary) hypertension; K21.9 Gastro-esophageal reflux disease without esophagitis; J45.909 Unspecified asthma, uncomplicated; Z79.899 Other long term (current) drug therapy
CPT/HCPCS: 01214; 36415; 73501-26-LT; 73501-LT; 80053; 85025; 86850; 86900; 86901; 87641; 94640; 94640-76; 94664; 94761; 97110-GP; 97116-GP; 97161-GP; 97165-GO; 97535-GO; A9270-GY; C1776; J0171; J0690; J0697; J1170; J1885; J2270; J2405; J2704; J3010; J3370; J3490; J7040; J7050; J7120

== ENCOUNTER 2020-10-24 18:00 | Emergency (ER) | payer MEDICARE, OTHER ==
[2020-10-24 18:08] VITALS: BP 156/89; PULSE 70
--- NOTE | 2020-10-24 18:54 | EDM.PDOC ---
ED HPI GENERAL MEDICAL PROBLEM - General Chief Complaint: Back Pain or Injury Stated Complaint: [facility] Time Seen by Provider: 10/24/20 18:21 Source of Information: Reports: Patient, Family () History Limitations: Reports: Physical Impairment (Very hard of hearing, despite hearing aids) - History of Present Illness INITIAL COMMENTS - FREE TEXT/NARRATIVE: Mr. Marmolejo is a very pleasant 89-year-old gentleman who is now brought to the ED by EMS after he developed sudden onset sharp midline mid-lumbar back pain around 17:00 this evening, associated with urinary incontinence and near syncope. He felt generally weak, to the point that he leaned on a post to prevent himself from falling, although he denies having focal weakness in either of his lower extremities, nor any sensory deprivation, such as tingling, numbness, or anesthesia. He had nausea, but did not vomit. He felt cold diaphoresis. No incontinence of bowel. No associated chest pain or dyspnea. His symptoms resolved after about 5 minutes, being replaced by feeling generally weak and shaky with blurry vision. He states that he just does not feel very well. The patient estimates that he has had similar symptoms, including actual syncope, 6 times in the past since he was in his 30s. Prior medical evaluations have been negative. Here in the ED, the patient's initial BP is found to be modestly elevated at 156/89, otherwise, he is hemodynamically stable, afebrile, saturating 94% on room air. Prior to this evening, the patient denies having a recent fever, chills, sore throat, ear pain, nasal or sinus congestion, cough, dyspnea, chest pain, palpitations, nausea, vomiting, constipation, diarrhea, abdominal pain, urinary symptoms, recent weight gain or weight loss, recent bloody bowel movements or black bowel movements, recent joint aches, headaches, or rashes. The patient's PCP is Dr. Martir Marsh. He states that he already received an influenza vaccine this season. - Related Data Allergies Allergy/AdvReac Type Severity Reaction Status Date / Time No Known Allergies Allergy Verified 10/24/20 18:04 Home Meds: Home Meds Albuterol [IJD: Ventolin HFA] 2 inh PO ASDIRECTED PRN 01/25/16 [History] Budesonide/Formoterol Fumarate [Symbicort 80-4.5 MCG] 2 inh PO BID 01/25/16 [History] Clobetasol [Clobetasol 0.05%] 1 ea TOP ASDIRECTED PRN 01/25/16 [History] Omeprazole 20 mg PO DAILY 01/25/16 [History] amLODIPine Besylate [Amlodipine Besylate] 10 mg PO DAILY 01/25/16 [History] Levothyroxine [Synthroid] 50 mcg PO DAILY 12/20/16 [History] Tamsulosin HCl PO DAILY 12/23/16 [History] Acetaminophen/HYDROcodone [[place] 325-5 MG] 1 - 2 tab PO Q4H PRN #60 tablet 12/25/16 [Rx] Aspirin [Ecotrin] 325 mg PO BID #70 tab.ec 12/25/16 [Rx] Past Medical History HEENT History: Reports: Hard of Hearing (wears hearing aids), Impaired Vision (wears glasses), Other (See Below) (Edentulous with dentures) Cardiovascular History: Reports: Hypertension Respiratory History: Reports: COPD (suspected, not PFT-tested) Gastrointestinal History: Reports: GERD Genitourinary History: Reports: BPH Musculoskeletal History: Reports: Osteoarthritis Endocrine/Metabolic History: Reports: Hypothyroidism - Infectious Disease History Infectious Disease History: Reports: MRSA, Novel Coronavirus (dx'd late May 2020) - Past Surgical History HEENT Surgical History: Reports: Cataract Surgery (right only), Oral Surgery (dental extractions) GI Surgical History: Reports: Appendectomy, Cholecystectomy (1959) Musculoskeletal Surgical History: Reports: Hip Replacement (bilateral), Shoulder Replacement (right) Dermatological Surgical History: Reports: Other (See Below) (Left elbow I&D) Social & Family History - Tobacco Use Tobacco Use Status *Q: Never Tobacco User - Caffeine Use Caffeine Use: Reports: None - Alcohol Use Alcohol Use History: No - Recreational Drug Use Recreational Drug Use: No - Living Situation & Occupation Living situation: Reports: , with Spouse Occupation: Retired ED ROS GENERAL - Review of Systems Review Of Systems: Comprehensive ROS is negative, except as noted in HPI. ED EXAM, GENERAL - Physical Exam Exam: See Below Exam Limited By: No Limitations General Appearance: Alert, WD/WN, No Apparent Distress Eye Exam: Bilateral Eye: EOMI, Normal Inspection, PERRL Ears: Normal External Exam, Hearing Loss Nose: Normal Inspection Throat/Mouth: Normal Inspection, Normal Lips, Normal Voice, No Airway Compromise Head: Atraumatic, Normocephalic Neck: Normal Inspection, Full Range of Motion Respiratory/Chest: No Respiratory Distress, Lungs Clear, Normal Breath Sounds, No Accessory Muscle Use Cardiovascular: Normal Peripheral Pulses, Regular Rate, Rhythm, No Edema, No Gallop, No JVD, No Murmur, No Rub Peripheral Pulses: 3+: Radial (L), Radial (R) GI/Abdominal: Normal Bowel Sounds, Soft, Non-Tender, No Organomegaly, No Distention, No Abnormal Bruit, No Mass, Other (No bruit) Back Exam: Normal Inspection, Full Range of Motion. No: CVA Tenderness (L), CVA Tenderness (R), Paraspinal Tenderness, Vertebral Tenderness Extremities: Normal Inspection, Normal Range of Motion, No Pedal Edema, Normal Capillary Refill Neurological: Alert, Oriented, CN II-XII Intact (very hard of hearing), Normal Cognition, No Motor/Sensory Deficits Psychiatric: Normal Affect Skin Exam: Warm, Dry, Intact, Normal Color, No Rash #1 Interpretation EKG Date: 10/24/20 Time: 18:08 Rhythm: NSR Rate (Beats/Min): 74 [place]: LAD-Left [place] Deviation P-Wave: Enlarged (LAE. 1st degree ABV.) QRS: Wide (Right ventricular conduction delay. LAFB.) ST-T: Normal QT: Normal Comparison: NA - No Prior EKG Course - Vital Signs Last Recorded V/S: Last Vital Signs Temp 35.8 C L 10/24/20 18:05 Pulse 70 10/24/20 18:05 Resp 14 10/24/20 18:05 BP 156/89 H 10/24/20 18:05 Pulse Ox 94 L 10/24/20 18:05 - Orders/Labs/Meds Orders: Active Orders 24 hr Category Date Time Status EKG 12 Lead [EKG Documentation Completion] [RC] STAT Care 10/24/20 18:05 Active Sodium Chloride 0.9% [Normal Saline] 1,000 ml Med 10/24/20 19:00 Active IV ASDIRECTED Sodium Chloride 0.9% [Normal Saline] 100 ml Med 10/24/20 20:15 Active IV ASDIRECTED Sodium Chloride 0.9% [Saline Flush] Med 10/24/20 20:15 Active 10 ml FLUSH ASDIRECTED Medication Orders Sodium Chloride (Normal Saline) 1,000 mls @ 100 mls/hr IV ASDIRECTED LEE Last Admin: 10/24/20 19:13 Dose: 100 mls/hr Documented by: SONY Sodium Chloride (Normal Saline) 100 mls @ 60 mls/hr IV ASDIRECTED LEE Last Admin: 10/24/20 20:09 Dose: 60 mls/hr Documented by: URSULA Sodium Chloride (Sodium Chloride 0.9% 10 Ml Syringe) 10 ml FLUSH ASDIRECTED LEE Last Admin: 10/24/20 20:09 Dose: 10 ml Documented by: IVANGRSean Labs: Laboratory Tests 10/24/20 10/24/20 10/24/20 Range/Units 19:11 19:11 19:11 WBC 11.80 H (4.23-9.07) K/mm3 RBC 5.27 (4.63-6.08) M/mm3 Hgb 15.5 D (13.7-17.5) gm/dl Hct 45.2 (40.1-51.0) % MCV 85.8 (79.0-92.2) fl MCH 29.4 (25.7-32.2) pg MCHC 34.3 (32.2-35.5) g/dl RDW Std Deviation 40.5 (35.1-43.9) fL Plt Count 242 (163-337) K/mm3 MPV 8.8 L (9.4-12.3) fl Neutrophils % (Manual) 85 H (40-60) % Band Neutrophils % 5 (0-10) % Lymphocytes % (Manual) 7 L (20-40) % Atypical Lymphs % 0 % Monocytes % (Manual) 3 (2-10) % Eosinophils % (Manual) 0 L (0.8-7.0) % Basophils % (Manual) 0 L (0.2-1.2) Platelet Estimate Adequate RBC Morph Comment Normal PT 11.5 (9.7-12.0) SECONDS INR 1.08 APTT 25.7 (21.7-31.4) SECONDS D-Dimer, Quantitative 0.51 H (0.19-0.50) mg/L Sodium 140 (136-145) mEq/L Potassium 3.6 (3.5-5.1) mEq/L Chloride 102 (98-107) mEq/L Carbon Dioxide 27 (21-32) mEq/L Anion Gap 14.6 (5-15) BUN 13 (7-18) mg/dL Creatinine 1.2 (0.7-1.3) mg/dL Est Cr Clr Drug Dosing 43.94 mL/min Estimated GFR (MDRD) 57 (>60) mL/min BUN/Creatinine Ratio 10.8 L (14-18) Glucose 119 H (83-115) mg/dL Calcium 8.7 (8.5-10.1) mg/dL Magnesium 2.4 (1.8-2.4) mg/dl Total Bilirubin 0.5 (0.2-1.0) mg/dL AST 20 (15-37) U/L ALT 35 (16-63) U/L Alkaline Phosphatase 83 (46-116) U/L Troponin I 0.037 (0.00-0.056) ng/mL Total Protein 7.9 (6.4-8.2) g/dl Albumin 4.2 (3.4-5.0) g/dl Globulin 3.7 gm/dL Albumin/Globulin Ratio 1.1 (1-2) Urine Color (Yellow) Urine Appearance (Clear) Urine pH (5.0-8.0) Ur Specific [place] (1.005-1.030) Urine Protein (Negative) Urine Glucose (UA) (Negative) Urine Ketones (Negative) Urine Occult Blood (Negative) Urine Nitrite (Negative) Urine Bilirubin (Negative) Urine Urobilinogen (0.2-1.0) Ur Leukocyte Esterase (Negative) Urine RBC (0-5) /hpf Urine WBC (0-5) /hpf Ur Squamous Epith Cells (0-5) /hpf Urine Bacteria (FEW) /hpf Urine Mucus (FEW) /hpf SARS-CoV-2 RNA (URIAH) (NEGATIVE) 10/24/20 10/24/20 Range/Units 19:15 20:12 WBC (4.23-9.07) K/mm3 RBC (4.63-6.08) M/mm3 Hgb (13.7-17.5) gm/dl Hct (40.1-51.0) % MCV (79.0-92.2) fl MCH (25.7-32.2) pg MCHC (32.2-35.5) g/dl RDW Std Deviation (35.1-43.9) fL Plt Count (163-337) K/mm3 MPV (9.4-12.3) fl Neutrophils % (Manual) (40-60) % Band Neutrophils % (0-10) % Lymphocytes % (Manual) (20-40) % Atypical Lymphs % % Monocytes % (Manual) (2-10) % Eosinophils % (Manual) (0.8-7.0) % Basophils % (Manual) (0.2-1.2) Platelet Estimate RBC Morph Comment PT (9.7-12.0) SECONDS INR APTT (21.7-31.4) SECONDS D-Dimer, Quantitative (0.19-0.50) mg/L Sodium (136-145) mEq/L Potassium (3.5-5.1) mEq/L Chloride (98-107) mEq/L Carbon Dioxide (21-32) mEq/L Anion Gap (5-15) BUN (7-18) mg/dL Creatinine (0.7-1.3) mg/dL Est Cr Clr Drug Dosing mL/min Estimated GFR (MDRD) (>60) mL/min BUN/Creatinine Ratio (14-18) Glucose (83-115) mg/dL Calcium (8.5-10.1) mg/dL Magnesium (1.8-2.4) mg/dl Total Bilirubin (0.2-1.0) mg/dL AST (15-37) U/L ALT (16-63) U/L Alkaline Phosphatase (46-116) U/L Troponin I (0.00-0.056) ng/mL Total Protein (6.4-8.2) g/dl Albumin (3.4-5.0) g/dl Globulin gm/dL Albumin/Globulin Ratio (1-2) Urine Color Yellow (Yellow) Urine Appearance Clear (Clear) Urine pH 7.5 (5.0-8.0) Ur Specific [place] 1.020 (1.005-1.030) Urine Protein Negative (Negative) Urine Glucose (UA) Negative (Negative) Urine Ketones Negative (Negative) Urine Occult Blood Trace-intact H (Negative) Urine Nitrite Negative (Negative) Urine Bilirubin Negative (Negative) Urine Urobilinogen 0.2 (0.2-1.0) Ur Leukocyte Esterase Negative (Negative) Urine RBC 0-5 (0-5) /hpf Urine WBC 0-5 (0-5) /hpf Ur Squamous Epith Cells 0-5 (0-5) /hpf Urine Bacteria Few (FEW) /hpf Urine Mucus Few (FEW) /hpf SARS-CoV-2 RNA (URIAH) Negative (NEGATIVE) Meds: Medications Generic Name Dose Route Start Last Admin Trade Name Kenny PRN Reason Stop Dose Admin Sodium Chloride 1,000 mls @ 100 mls/hr 10/24/20 19:00 10/24/20 19:13 Normal Saline IV 100 mls/hr ASDIRECTED LEE Administration Sodium Chloride 100 mls @ 60 mls/hr 10/24/20 20:15 10/24/20 20:09 Normal Saline IV 60 mls/hr ASDIRECTED LEE Administration Sodium Chloride 10 ml 10/24/20 20:15 10/24/20 20:09 Sodium Chloride 0.9% 10 Ml Syringe FLUSH 10 ml ASDIRECTED LEE Administration Discontinued Medications Generic Name Dose Route Start Last Admin Trade Name Kenny PRN Reason Stop Dose Admin Iopamidol 100 ml 10/24/20 20:08 10/24/20 20:09 Iopamidol 755 Mg/Ml 100 Ml Bottle IVPUSH 10/24/20 20:09 100 ml ONETIME ONE Administration - Re-Assessments/Exams Free Text/Narrative Re-Assessment/Exam: 10/24/20 18:50 As above, the patient developed sharp sudden-onset midline mid-lumbar pain with nausea, urinary incontinence, cold sweats, and near-syncope around 17:00 this evening, lasting only about 5 minutes, being replaced with the patient feeling generally weak, shaky, and visual blurriness, which has persisted. No associated chest pain or dyspnea. Since this is the patient's sixth or seventh episode since he was in his 30s, with prior negative work-ups, it is unlikely that the patient's symptoms are due to a dissection, however, I have ordered a work-up that includes several blood tests, a urinalysis by clean-catch, a portable chest x-ray, CTs of the head and aorta, and a swab for the SARS-CoV-2 virus. In the meantime, the patient will be given gentle IV fluid. 10/24/20 20:17 Portable chest radiograph reviewed. The cardiac silhouette is at the upper limits of normal, but no pulmonary vascular congestion or pleural effusions to suggest decompensated CHF. No focal infiltrate. No pneumothorax. Formal read per the Radiologist pending. The patient's CBC is remarkable for mild leukocytosis of 11.80, with 5% bandemia, and is otherwise unremarkable. His CMP is remarkable for slight hyperglycemia of 119, and is otherwise unremarkable. His magnesium level is within normal limits at 2.4. His troponin is within normal limits at 0.037. His D-dimer is slightly elevated at 0.051. His coags are within normal limits. His swab for the SARS-CoV-2 virus returned negative. 10/24/20 21:04 CT of the head without contrast is read by [facility] as: 1. Sinus findings as noted above. 2. Mild senescent change. 3. No acute intracranial abnormality is appreciated. CT of the chest with IV contrast is read by [facility] as: 1. No findings of aortic dissection. Ascending and descending aorta measurements as noted above. 2. Emphysematous change. 3. Other findings believed to be incidental as noted above. CT of the abdomen and pelvis with IV contrast is read by [facility] as: 1. Atherosclerotic change within the abdominal aorta. No aneurysm or dissection is seen. 2. Nothing acute is identified on CT study of the abdomen and pelvis. The patient's urinalysis is unremarkable. 10/24/20 21:10 Test results discussed with the patient and his . Like prior evaluations for similar symptoms, today's work-up is unremarkable, and does not explain the cause of his symptoms. I do not see an indication to admit the patient home, and the patient is perfectly fine with going home, however, his is not comfortable with it. Unfortunately, we do not have any beds available at this lady, however, I offered to let the patient stay here in the ED overnight. The patient's went out to talk to some family members to see if that would be all right. 10/24/20 21:16 The patient's spoke to some family members, and their son can come and get the patient in the morning. 10/25/20 05:45 The patient has had an uneventful night. His ride is here. Departure - Departure Time of Disposition: 05:45 Disposition: Home, Self-Care 01 Condition: Good Clinical Impression: Back pain, Near syncope - Discharge Information *PRESCRIPTION DRUG MONITORING PROGRAM REVIEWED*: Not Applicable *COPY OF PRESCRIPTION DRUG MONITORING REPORT IN PATIENT IMELDA: Not Applicable Referrals: Martir Marsh MD [Primary Care Provider] - Forms: ED Department Discharge Additional Instructions: You were seen in the emergency room after you developed sudden-onset sharp back pain and nearly passed out. Work-up in the ER included several blood tests, a urinalysis, a chest x-ray, a CT scan of your head, a CT scan of your chest, abdomen, and pelvis, and an ECG. Your entire work-up was unremarkable, and does not explain the cause of your symptoms. You were kept in the ER overnight for observation. Please follow-up with your PCP, Dr. Martir Marsh, at the next available appointment. If any other problems, please do not hesitate to return to the ER. Sepsis Event Note (ED) - Evaluation Sepsis Screening Result: No Definite Risk - Focused Exam Vital Signs: Vital Signs Temp Pulse Resp BP Pulse Ox 10/24/20 18:05 35.8 C L 70 14 156/89 H 94 L - My Orders Last 24 Hours: My Active Orders 10/24/20 18:05 EKG 12 Lead [EKG Documentation Completion] [RC] STAT 10/24/20 19:00 Sodium Chloride 0.9% [Normal Saline] 1,000 ml IV ASDIRECTED 10/24/20 20:15 Sodium Chloride 0.9% [Normal Saline] 100 ml IV ASDIRECTED Sodium Chloride 0.9% [Saline Flush] 10 ml FLUSH ASDIRECTED - Assessment/Plan Last 24 Hours: My Active Orders 10/24/20 18:05 EKG 12 Lead [EKG Documentation Completion] [RC] STAT 10/24/20 19:00 Sodium Chloride 0.9% [Normal Saline] 1,000 ml IV ASDIRECTED 10/24/20 20:15 Sodium Chloride 0.9% [Normal Saline] 100 ml IV ASDIRECTED Sodium Chloride 0.9% [Saline Flush] 10 ml FLUSH ASDIRECTED
[2020-10-24] MEDS: Sodium Chloride 0.9% 1,000 ML IV SCH (19:13)
[2020-10-24] MEDS: Iopamidol 755 Mg/ML 100 ML Bottle IVPUSH ONE (20:09)
[2020-10-24] MEDS: Sodium Chloride 0.9% 100 ML IV SCH (20:09)
[2020-10-24] MEDS: Sodium Chloride 0.9% 10 ML Syringe FLUSH SCH (20:09)
--- NOTE | 2020-10-24 20:35 | CR ---
Chest: Portable view of the chest was obtained. Comparison: Prior chest x-ray of 07/18/11. Heart is felt to be enlarged. Tortuous thoracic aorta is seen. Lungs are clear with no acute parenchymal change. Right shoulder prosthesis is seen. Impression: 1. Findings as noted above. 2. Nothing acute is seen on portable chest x-ray. Diagnostic code #2
--- NOTE | 2020-10-24 20:47 | CT ---
Head CT Technique: Multiple axial sections to the brain were obtained. Intravenous contrast not utilized. Reconstructed coronal and sagittal images were obtained. Comparison: No prior intracranial imaging is available. Findings: Ventricles along with basal cisterns and sulci over the convexities are mildly prominent. Slight diminished density is noted within the periventricular white matter compatible with small vessel ischemic demyelination change. Minimal basal ganglia calcification is noted. Minimal atherosclerotic calcification is seen within the carotid siphon and vertebral vessels. No evidence of intracranial hemorrhage. No midline shift or mass-effect is appreciated. Bone window settings were reviewed. There is minimal mucosal thickening within the mastoid sinuses which is likely incidental. Mucosal thickening is noted within the visualized paranasal sinuses compatible with mild diffuse chronic sinus disease. No acute calvarial finding is appreciated. Impression: 1. Sinus findings as noted above. 2. Mild senescent change. 3. No acute intracranial abnormality is appreciated. Diagnostic code #2
--- NOTE | 2020-10-24 20:49 | CT ---
CT chest Technique: Multiple axial sections were obtained through the chest. Intravenous contrast was utilized. Comparison: No prior chest CT is available. Findings: Ascending aorta measures 3.5 cm. Descending aorta measures approximately 3.1 cm. There is no evidence of dissection. Pulmonary arteries that are seen show no filling defects of pulmonary embolism. No mediastinal adenopathy is seen. No axillary adenopathy is noted. Heart is slightly enlarged. Lung window settings were obtained which show emphysematous change within both lungs. Lungs show no acute parenchymal change. Very minimal nodule is noted measuring about 1.5-2 mm which is believed to be incidental. Bone window settings were reviewed which show scattered degenerative change throughout the spine. No acute osseous abnormality is appreciated. Impression: 1. No findings of aortic dissection. Ascending and descending aorta measurements as noted above. 2. Emphysematous change. 3. Other findings believed to be incidental as noted above. Diagnostic code #2 CT abdomen and pelvis Technique: Multiple axial sections were obtained from above the dome of the diaphragm inferiorly to the mid bladder. Intravenous contrast was utilized. No oral contrast has been given. Reconstructed coronal and sagittal images were obtained. Findings: Small hiatal hernia is noted. Liver contains no focal parenchymal abnormality. Spleen appears within normal limits. Adrenal glands show no nodule. Pancreas appears within normal limits. Abdominal aorta shows atherosclerotic change without aneurysm or dissection. Kidneys show symmetric contrast enhancement with no hydronephrosis or discrete mass being seen. Celiac axis and superior mesenteric arteries show no focal stenosis. No focal stenosis is seen within the renal arteries. Inferior mesenteric artery appears to be patent. No retroperitoneal adenopathy or mesenteric abnormalities are seen. No pelvic mass or adenopathy is noted. Bone window settings were reviewed which show scattered degenerative change within the lumbar spine. Impression: 1. Atherosclerotic change within the abdominal aorta. No aneurysm or dissection is seen. 2. Nothing acute is identified on CT study of the abdomen and pelvis. Diagnostic code #2
== END 2020-10-25 05:53 | disposition home or self-care (01) ==
LOC: JD.ED 18:00
DX: M54.5 Low back pain (principal); R55 Syncope and collapse; R11.0 Nausea; R32 Unspecified urinary incontinence; I10 Essential (primary) hypertension; J44.9 Chronic obstructive pulmonary disease, unspecified; K21.9 Gastro-esophageal reflux disease without esophagitis; N40.0 Benign prostatic hyperplasia without lower urinary tract symptoms; M19.90 Unspecified osteoarthritis, unspecified site; E03.9 Hypothyroidism, unspecified; I44.0 Atrioventricular block, first degree; D72.829 Elevated white blood cell count, unspecified; Z79.82 Long term (current) use of aspirin; Z79.899 Other long term (current) drug therapy; Z20.822 Contact with and (suspected) exposure to COVID-19
CPT/HCPCS: 36415; 70450; 70450-26; 71045; 71045-26; 71260; 71260-26; 74177; 74177-26; 80053; 81001; 83735; 84484; 85007; 85027; 85379; 85610; 85730; 93005; 93010; 99284; 99285-25; J7030; Q9967; U0002

== ENCOUNTER 2021-02-02 19:04 | Inpatient (IN) | payer MEDICARE, OTHER ==
--- NOTE | 2021-02-02 20:42 | EDM.PDOC ---
ED HPI GENERAL MEDICAL PROBLEM - General Chief Complaint: Genitourinary Problem Stated Complaint: SEIZURES/BLADDER ISSUES SENT BY CLINIC Time Seen by Provider: 02/02/21 20:42 Source of Information: Reports: Patient, Family History Limitations: Reports: No Limitations - History of Present Illness Duration: Day(s): (two) Location: Reports: Abdomen Quality: Reports: Ache, Burning Severity: Moderate Improves with: Reports: None Worsens with: Reports: Other (Urination) Associated Symptoms: Reports: Fever/Chills, Malaise. Denies: Nausea/Vomiting - Related Data Allergies Allergy/AdvReac Type Severity Reaction Status Date / Time No Known Allergies Allergy Verified 02/02/21 19:27 Home Meds: Home Meds Albuterol [IJD: Ventolin HFA] 2 inh PO ASDIRECTED PRN 01/25/16 [History] Budesonide/Formoterol Fumarate [Symbicort 80-4.5 MCG] 2 inh PO BID 01/25/16 [History] Clobetasol [Clobetasol 0.05%] 1 ea TOP ASDIRECTED PRN 01/25/16 [History] Omeprazole 20 mg PO DAILY 01/25/16 [History] amLODIPine Besylate [Amlodipine Besylate] 10 mg PO DAILY 01/25/16 [History] Levothyroxine [Synthroid] 50 mcg PO DAILY 12/20/16 [History] Tamsulosin HCl 1 tab PO DAILY 12/23/16 [History] Past Medical History HEENT History: Reports: Hard of Hearing, Impaired Vision, Other (See Below) Other HEENT History: wears glasses, dentures Cardiovascular History: Reports: Hypertension Other Cardiovascular History: bilateral carotid bruits Respiratory History: Reports: COPD Gastrointestinal History: Reports: GERD Genitourinary History: Reports: BPH Other Genitourinary History: nocturia Musculoskeletal History: Reports: Osteoarthritis Other Musculoskeletal History: elbow infection Neurological History: Reports: None Psychiatric History: Reports: None Endocrine/Metabolic History: Reports: Hypothyroidism Hematologic History: Reports: None Immunologic History: Reports: None Oncologic (Cancer) History: Reports: None Dermatologic History: Reports: Other (See Below) Other Dermatologic History: skin issue to back - states it is a possible allergy. Sees Dr. Louis for this - Infectious Disease History Infectious Disease History: Reports: MRSA, Novel Coronavirus Other Infectious Disease History: COVID may 2020 - Past Surgical History HEENT Surgical History: Reports: Cataract Surgery, Oral Surgery GI Surgical History: Reports: Appendectomy, Cholecystectomy Musculoskeletal Surgical History: Reports: Hip Replacement, Shoulder Replacement Other Musculoskeletal Surgeries/Procedures:: elbow infection I&D, HISTORY OF STAFF INFECTION WITH HIP SURGERY Dermatological Surgical History: Reports: Other (See Below) Social & Family History - Family History Cardiac: Reports: Aneurysm Respiratory: Reports: None : Reports: Dialysis Neurological: Reports: CVA Endocrine/Metabolic: Reports: Hypothyroidism Oncologic: Reports: Colon, Leukemia Other Oncologic Family History: STOMACH CANCER, LEUKEMIA - Tobacco Use Tobacco Use Status *Q: Never Tobacco User Second Hand Smoke Exposure: No - Caffeine Use Caffeine Use: Reports: Coffee, Soda - Recreational Drug Use Recreational Drug Use: No - Living Situation & Occupation Living situation: Reports: , with Spouse Occupation: Retired ED ROS GENERAL - Review of Systems Review Of Systems: See Below ED EXAM, RENAL/ - Physical Exam Exam: See Below Exam Limited By: No Limitations General Appearance: Alert, No Apparent Distress Head: Atraumatic Neck: Normal Inspection, Supple Respiratory/Chest: No Respiratory Distress, Lungs Clear, Normal Breath Sounds Cardiovascular: Tachycardia, Irregularly Irregular. No: Regular Rate, Rhythm GI/Abdominal: Soft, Tender. No: Guarding, Rigid, Rebound Back Exam: Normal Inspection Extremities: Normal Inspection Neurological: Alert, Oriented Psychiatric: Normal Affect Skin Exam: Warm, Dry, Normal Color Lymphatic: No Adenopathy Course - Vital Signs Text/Narrative:: Patient's white blood cell count is very elevated at 29.8 with a left shift. Blood cultures are pending. His lactate is normal. He did receive a liter of fluid and was given 2 g Rocephin after blood cultures were drawn. Patient is feeling better and is eating and drinking and is comfortable currently. Chest x-ray shows no acute disease. EKG shows him to be in atrial fibrillation which appears to be new. I have reviewed his previous medical records including previous EKG at which time he was not in A. fib. Patient was discussed with hospitalist Dr. Maxwell who is asked me to write bridging orders and will see the patient in the morning. Patient did have a temperature of 101.5. Sepsis protocol was initiated due to tachycardia with fever. Urine is still pending at this point. Last Recorded V/S: Last Vital Signs Temp 101.5 F H 02/02/21 21:01 Pulse 135 H 02/02/21 19:21 Resp 20 02/02/21 19:21 BP 167/75 H 02/02/21 19:21 Pulse Ox 94 L 02/02/21 19:21 - Orders/Labs/Meds Orders: Active Orders 24 hr Category Date Time Status Bladder Scan [RC] ASDIRECTED Care 02/02/21 22:45 Ordered EKG Documentation Completion [RC] STAT Care 02/02/21 20:54 Active Peripheral IV Care [RC] . DIRECTED Care 02/02/21 20:56 Active Chest 1V Frontal [CR] Stat Exams 02/02/21 20:53 Taken CULTURE BLOOD [BC] Stat Lab 02/02/21 21:20 Received CULTURE BLOOD [BC] Stat Lab 02/02/21 21:25 Received LACTATE SEPSIS W/ REFLEX [CHEM] Stat Lab 02/02/21 22:41 Ordered UA W/O MICROSCOPIC [URIN] Stat Lab 02/02/21 20:30 Ordered Sodium Chloride 0.9% [Normal Saline] 1,000 ml Med 02/02/21 20:57 Active IV ONETIME Sodium Chloride 0.9% [Saline Flush] Med 02/02/21 20:55 Active 10 ml FLUSH ASDIRECTED PRN Blood Culture x2 Reflex Set [OM.PC] Stat Oth 02/02/21 20:54 Ordered Peripheral IV Insertion Adult [OM.PC] Routine Oth 02/02/21 20:54 Ordered Medication Orders Sodium Chloride (Normal Saline) 1,000 mls @ 500 mls/hr IV ONETIME ONE Stop: 02/02/21 22:56 Last Admin: 02/02/21 21:05 Dose: 500 mls/hr Documented by: KAUSHIK Sodium Chloride (Sodium Chloride 0.9% 10 Ml Syringe) 10 ml FLUSH ASDIRECTED PRN PRN Reason: Keep Vein Open Last Admin: 02/02/21 20:57 Dose: 10 ml Documented by: KAUSHIK Labs: Laboratory Tests 02/02/21 02/02/21 02/02/21 Range/Units 20:10 20:10 21:20 WBC 29.88 H (4.23-9.07) K/mm3 RBC 4.90 (4.63-6.08) M/mm3 Hgb 15.0 (13.7-17.5) gm/dl Hct 43.3 (40.1-51.0) % MCV 88.4 (79.0-92.2) fl MCH 30.6 (25.7-32.2) pg MCHC 34.6 (32.2-35.5) g/dl RDW Std Deviation 44.7 H (35.1-43.9) fL Plt Count 178 (163-337) K/mm3 MPV 9.9 (9.4-12.3) fl Neutrophils % (Manual) 88 H (40-60) % Band Neutrophils % 3 (0-10) % Lymphocytes % (Manual) 4 L (20-40) % Atypical Lymphs % 0 % Monocytes % (Manual) 5 (2-10) % Eosinophils % (Manual) 0 L (0.8-7.0) % Basophils % (Manual) 0 L (0.2-1.2) Platelet Estimate Adequate RBC Morph Comment Normal Sodium 138 (136-145) mEq/L Potassium 3.6 (3.5-5.1) mEq/L Chloride 102 (98-107) mEq/L Carbon Dioxide 24 (21-32) mEq/L Anion Gap 15.6 H (5-15) BUN 23 H (7-18) mg/dL Creatinine 1.7 H (0.7-1.3) mg/dL Est Cr Clr Drug Dosing 31.01 mL/min Estimated GFR (MDRD) 38 (>60) mL/min BUN/Creatinine Ratio 13.5 L (14-18) Glucose 117 H (70-99) mg/dL Lactic Acid 1.3 (0.4-2.0) mmol/L Calcium 8.8 (8.5-10.1) mg/dL Total Bilirubin 1.2 H (0.2-1.0) mg/dL AST 14 L (15-37) U/L ALT 27 (16-63) U/L Alkaline Phosphatase 101 (46-116) U/L Total Protein 7.2 (6.4-8.2) g/dl Albumin 3.5 (3.4-5.0) g/dl Globulin 3.7 gm/dL Albumin/Globulin Ratio 1.0 (1-2) Meds: Medications Generic Name Dose Route Start Last Admin Trade Name Freq PRN Reason Stop Dose Admin Sodium Chloride 1,000 mls @ 500 mls/hr 02/02/21 20:57 02/02/21 21:05 Normal Saline IV 02/02/21 22:56 500 mls/hr ONETIME ONE Administration Sodium Chloride 10 ml 02/02/21 20:55 02/02/21 20:57 Sodium Chloride 0.9% 10 Ml Syringe FLUSH 10 ml ASDIRECTED PRN Administration Keep Vein Open Discontinued Medications Generic Name Dose Route Start Last Admin Trade Name Kenny PRN Reason Stop Dose Admin Ceftriaxone Sodium Confirm 02/02/21 20:59 02/02/21 21:09 Ceftriaxone 2 Gm Vial Administered 02/02/21 21:00 Not Given Dose 2 gm .ROUTE .STK-MED ONE Ceftriaxone Sodium Confirm 02/02/21 21:01 02/02/21 21:31 Ceftriaxone 2 Gm Advvial Administered 02/02/21 21:02 Not Given Dose 2 gm IV .STK-MED ONE Ceftriaxone Sodium 2 gm/ 100 mls @ 200 mls/hr 02/02/21 20:57 02/02/21 21:28 Sodium Chloride IV 02/02/21 21:26 200 mls/hr ONETIME ONE Administration Sodium Chloride Confirm 02/02/21 21:01 02/02/21 21:31 Normal Saline Administered 02/02/21 21:02 Not Given Dose 100 mls @ as directed .ROUTE .STK-MED ONE Departure - Departure Time of Disposition: 23:01 Disposition: Admitted As Inpatient 68 Condition: Good Clinical Impression: Sepsis, Atrial fibrillation, UTI, Urinary tract infectious disease, Leukocytosis, unspecified - Discharge Information Referrals: Martir Marsh MD [Primary Care Provider] - Forms: ED Department Discharge Sepsis Event Note (ED) - Evaluation Sepsis Screening Result: No Definite Risk - Focused Exam Vital Signs: Vital Signs Temp Temp Pulse Resp BP Pulse Ox 02/02/21 21:01 101.5 F H 02/02/21 19:21 98.3 F 135 H 20 167/75 H 94 L - My Orders Last 24 Hours: My Active Orders 02/02/21 20:30 UA W/O MICROSCOPIC [URIN] Stat 02/02/21 20:53 Chest 1V Frontal [CR] Stat 02/02/21 20:54 EKG Documentation Completion [RC] STAT Blood Culture x2 Reflex Set [OM.PC] Stat Peripheral IV Insertion Adult [OM.PC] Routine 02/02/21 20:55 Sodium Chloride 0.9% [Saline Flush] 10 ml FLUSH ASDIRECTED PRN 02/02/21 20:56 Peripheral IV Care [RC] . DIRECTED 02/02/21 20:57 Sodium Chloride 0.9% [Normal Saline] 1,000 ml IV ONETIME 02/02/21 21:20 CULTURE BLOOD [BC] Stat 02/02/21 21:25 CULTURE BLOOD [BC] Stat 02/02/21 22:41 LACTATE SEPSIS W/ REFLEX [CHEM] Stat 02/02/21 22:45 Bladder Scan [RC] ASDIRECTED - Assessment/Plan Last 24 Hours: My Active Orders 02/02/21 20:30 UA W/O MICROSCOPIC [URIN] Stat 02/02/21 20:53 Chest 1V Frontal [CR] Stat 02/02/21 20:54 EKG Documentation Completion [RC] STAT Blood Culture x2 Reflex Set [OM.PC] Stat Peripheral IV Insertion Adult [OM.PC] Routine 02/02/21 20:55 Sodium Chloride 0.9% [Saline Flush] 10 ml FLUSH ASDIRECTED PRN 02/02/21 20:56 Peripheral IV Care [RC] . DIRECTED 02/02/21 20:57 Sodium Chloride 0.9% [Normal Saline] 1,000 ml IV ONETIME 02/02/21 21:20 CULTURE BLOOD [BC] Stat 02/02/21 21:25 CULTURE BLOOD [BC] Stat 02/02/21 22:41 LACTATE SEPSIS W/ REFLEX [CHEM] Stat 02/02/21 22:45 Bladder Scan [RC] ASDIRECTED
[2021-02-02] MEDS ORDERED: Sodium Chloride 0.9% 10 ML Syringe FLUSH PRN (20:55)
[2021-02-02] MEDS ORDERED: cefTRIAXone 2 GM in Sodium Chloride 0.9% 100 ML IV ONE (20:57)
[2021-02-02] MEDS ORDERED: Sodium Chloride 0.9% 1,000 ML IV ONE (20:57)
[2021-02-02] MEDS ORDERED: cefTRIAXone 2 GM Vial ONE (20:59)
[2021-02-02] MEDS ORDERED: Sodium Chloride 0.9% 100 ML ONE (21:01)
[2021-02-02] MEDS: cefTRIAXone 2 GM AdvVial IV ONE ×2 (21:28→21:31)
[2021-02-02] MEDS ORDERED: Sodium Chloride 0.9% 1,000 ML IV SCH (23:30)
[2021-02-03] MEDS ORDERED: Acetaminophen 325 MG Tab PO PRN (01:37)
[2021-02-03] MEDS: Pantoprazole 40 MG Tab.CR PO SCH ×2 (02:08→22:32)
[2021-02-03] MEDS: Tamsulosin 0.4 MG Cap.ER PO SCH ×2 (02:09→22:32)
--- NOTE | 2021-02-03 07:58 | PCM.HP.2 ---
H&P History of Present Illness - General Date of Service: 02/03/21 Admit Problem/Dx: Admission Diagnosis/Problem Admission Diagnosis/Problem Urosepsis - History of Present Illness Initial Comments - Free Text/Narative: This is a 89M with Past medical history of hypertension, asthma, GERD, hypothyroidism, BPH presenting to ED for evaluation of fever. At time of evaluation patient unable to provide history as he is very hard of hearing. Hx obtained from chart review. The patient presented to ED with fever with temp of 100.2F. Workup notable for WBC of 26.8, K 3.3, normal lactate. UA was concerning for UTI and the patient was thus started on IVF and ceftriaxone and admitted for further evaluation. - Related Data Allergies/Adverse Reactions: Allergies Allergy/AdvReac Type Severity Reaction Status Date / Time No Known Allergies Allergy Verified 02/03/21 01:19 Home Medications: Home Meds Albuterol [IJD: Ventolin HFA] 2 inh PO ASDIRECTED PRN 01/25/16 [History] Budesonide/Formoterol Fumarate [Symbicort 80-4.5 MCG] 2 inh PO BID 01/25/16 [History] Clobetasol [Clobetasol 0.05%] 1 ea TOP ASDIRECTED PRN 01/25/16 [History] Omeprazole 20 mg PO BEDTIME 01/25/16 [History] amLODIPine Besylate [Amlodipine Besylate] 10 mg PO DAILY 01/25/16 [History] Levothyroxine [Synthroid] 50 mcg PO DAILY 12/20/16 [History] Tamsulosin HCl 0.4 mg PO BEDTIME 12/23/16 [History] Multivitamin 1 each PO DAILY 02/02/21 [History] Past Medical History HEENT History: Reports: Hard of Hearing, Impaired Vision, Other (See Below) Other HEENT History: wears glasses, dentures Cardiovascular History: Reports: Hypertension Other Cardiovascular History: bilateral carotid bruits Respiratory History: Reports: Asthma, COPD Gastrointestinal History: Reports: GERD Genitourinary History: Reports: BPH Other Genitourinary History: nocturia Musculoskeletal History: Reports: Osteoarthritis Other Musculoskeletal History: elbow infection Neurological History: Reports: None Psychiatric History: Reports: None Endocrine/Metabolic History: Reports: Hypothyroidism Hematologic History: Reports: None Immunologic History: Reports: None Oncologic (Cancer) History: Reports: None Dermatologic History: Reports: Other (See Below) Other Dermatologic History: skin issue to back - states it is a possible allergy. Sees Dr. Louis for this - Infectious Disease History Infectious Disease History: Reports: MRSA, Novel Coronavirus Other Infectious Disease History: COVID may 2020 - Past Surgical History Head Surgeries/Procedures: Reports: None HEENT Surgical History: Reports: Cataract Surgery, Oral Surgery GI Surgical History: Reports: Appendectomy, Cholecystectomy Musculoskeletal Surgical History: Reports: Hip Replacement, Shoulder Replacement Other Musculoskeletal Surgeries/Procedures:: elbow infection I&D, HISTORY OF STAFF INFECTION WITH HIP SURGERY. back surgery Social & Family History - Family History Cardiac: Reports: Aneurysm Respiratory: Reports: None : Reports: Dialysis Neurological: Reports: CVA Endocrine/Metabolic: Reports: Hypothyroidism Oncologic: Reports: Colon, Leukemia Other Oncologic Family History: STOMACH CANCER, LEUKEMIA - Tobacco Use Tobacco Use Status *Q: Never Tobacco User Second Hand Smoke Exposure: No - Caffeine Use Caffeine Use: Reports: Coffee, Soda - Recreational Drug Use Recreational Drug Use: No - Living Situation & Occupation Living situation: Reports: , with Spouse Occupation: Retired H&P Review of Systems - Review of Systems: Review Of Systems: Unable To Obtain Reason Not Obtained: difficulty hearing Exam - Exam Exam: See Below - Vital Signs Vital Signs: Last Vital Signs Temp 98.8 F 02/03/21 04:02 Pulse 103 H 02/03/21 04:02 Resp 16 02/03/21 04:02 BP 113/66 02/03/21 04:02 Pulse Ox 95 02/03/21 04:45 Weight: 175 lb 9.6 oz - Exam Physical Exam Comments:: Gen: elderly male in no acute distress; very hard of hearing HEENT: NCAT EOMI MMM, Neck: Supple CV: RRR normal s1 s2 Lungs: CTAB Abd: Soft, nt, nd Neuro: alert, moving extremities; appears at baseline state, difficult of hearing Psych: pleasant affect MSK: age appropriate muscle mass Skin: warm, dry no rash on face - Patient Data Lab Results Last 24 hrs: Laboratory Results - last 24 hr 02/02/21 02/02/21 02/02/21 Range/Units 19:40 20:10 20:10 WBC 29.88 H (4.23-9.07) K/mm3 RBC 4.90 (4.63-6.08) M/mm3 Hgb 15.0 (13.7-17.5) gm/dl Hct 43.3 (40.1-51.0) % MCV 88.4 (79.0-92.2) fl MCH 30.6 (25.7-32.2) pg MCHC 34.6 (32.2-35.5) g/dl RDW Std Deviation 44.7 H (35.1-43.9) fL Plt Count 178 (163-337) K/mm3 MPV 9.9 (9.4-12.3) fl Neut % (Auto) (34.0-67.9) % Lymph % (Auto) (21.8-53.1) % [place] % (Auto) (5.3-12.2) % Eos % (Auto) (0.8-7.0) Baso % (Auto) (0.1-1.2) % Neut # (Auto) (1.78-5.38) K/mm3 Lymph # (Auto) (1.32-3.57) K/mm3 [place] # (Auto) (0.30-0.82) K/mm3 Eos # (Auto) (0.04-0.54) K/mm3 Baso # (Auto) (0.01-0.08) K/mm3 Neutrophils % (Manual) 88 H (40-60) % Band Neutrophils % 3 (0-10) % Lymphocytes % (Manual) 4 L (20-40) % Atypical Lymphs % 0 % Monocytes % (Manual) 5 (2-10) % Eosinophils % (Manual) 0 L (0.8-7.0) % Basophils % (Manual) 0 L (0.2-1.2) Manual Slide Review Platelet Estimate Adequate RBC Morph Comment Normal Sodium 138 (136-145) mEq/L Potassium 3.6 (3.5-5.1) mEq/L Chloride 102 (98-107) mEq/L Carbon Dioxide 24 (21-32) mEq/L Anion Gap 15.6 H (5-15) BUN 23 H (7-18) mg/dL Creatinine 1.7 H (0.7-1.3) mg/dL Est Cr Clr Drug Dosing 31.01 mL/min Estimated GFR (MDRD) 38 (>60) mL/min BUN/Creatinine Ratio 13.5 L (14-18) Glucose 117 H (70-99) mg/dL Lactic Acid (0.4-2.0) mmol/L Calcium 8.8 (8.5-10.1) mg/dL Total Bilirubin 1.2 H (0.2-1.0) mg/dL AST 14 L (15-37) U/L ALT 27 (16-63) U/L Alkaline Phosphatase 101 (46-116) U/L Total Protein 7.2 (6.4-8.2) g/dl Albumin 3.5 (3.4-5.0) g/dl Globulin 3.7 gm/dL Albumin/Globulin Ratio 1.0 (1-2) Urine Color Chelsie H (Yellow) Urine Appearance Turbid H (Clear) Urine pH 5.5 (5.0-8.0) Ur Specific Stuart > or = 1.030 (1.005-1.030) Urine Protein 2+ H (Negative) Urine Glucose (UA) Negative (Negative) Urine Ketones Trace H (Negative) Urine Occult Blood 2+ H (Negative) Urine Nitrite Negative (Negative) Urine Bilirubin Negative (Negative) Urine Urobilinogen 0.2 (0.2-1.0) Ur Leukocyte Esterase 2+ H (Negative) SARS-CoV-2 RNA (URIAH) (NEGATIVE) 02/02/21 02/02/21 02/02/21 Range/Units 21:20 22:50 23:05 WBC (4.23-9.07) K/mm3 RBC (4.63-6.08) M/mm3 Hgb (13.7-17.5) gm/dl Hct (40.1-51.0) % MCV (79.0-92.2) fl MCH (25.7-32.2) pg MCHC (32.2-35.5) g/dl RDW Std Deviation (35.1-43.9) fL Plt Count (163-337) K/mm3 MPV (9.4-12.3) fl Neut % (Auto) (34.0-67.9) % Lymph % (Auto) (21.8-53.1) % [place] % (Auto) (5.3-12.2) % Eos % (Auto) (0.8-7.0) Baso % (Auto) (0.1-1.2) % Neut # (Auto) (1.78-5.38) K/mm3 Lymph # (Auto) (1.32-3.57) K/mm3 [place] # (Auto) (0.30-0.82) K/mm3 Eos # (Auto) (0.04-0.54) K/mm3 Baso # (Auto) (0.01-0.08) K/mm3 Neutrophils % (Manual) (40-60) % Band Neutrophils % (0-10) % Lymphocytes % (Manual) (20-40) % Atypical Lymphs % % Monocytes % (Manual) (2-10) % Eosinophils % (Manual) (0.8-7.0) % Basophils % (Manual) (0.2-1.2) Manual Slide Review Platelet Estimate RBC Morph Comment Sodium (136-145) mEq/L Potassium (3.5-5.1) mEq/L Chloride (98-107) mEq/L Carbon Dioxide (21-32) mEq/L Anion Gap (5-15) BUN (7-18) mg/dL Creatinine (0.7-1.3) mg/dL Est Cr Clr Drug Dosing mL/min Estimated GFR (MDRD) (>60) mL/min BUN/Creatinine Ratio (14-18) Glucose (70-99) mg/dL Lactic Acid 1.3 1.4 (0.4-2.0) mmol/L Calcium (8.5-10.1) mg/dL Total Bilirubin (0.2-1.0) mg/dL AST (15-37) U/L ALT (16-63) U/L Alkaline Phosphatase (46-116) U/L Total Protein (6.4-8.2) g/dl Albumin (3.4-5.0) g/dl Globulin gm/dL Albumin/Globulin Ratio (1-2) Urine Color (Yellow) Urine Appearance (Clear) Urine pH (5.0-8.0) Ur Specific Stuart (1.005-1.030) Urine Protein (Negative) Urine Glucose (UA) (Negative) Urine Ketones (Negative) Urine Occult Blood (Negative) Urine Nitrite (Negative) Urine Bilirubin (Negative) Urine Urobilinogen (0.2-1.0) Ur Leukocyte Esterase (Negative) SARS-CoV-2 RNA (URIAH) Negative (NEGATIVE) 02/03/21 02/03/21 02/03/21 Range/Units 01:04 06:30 06:30 WBC 26.76 H (4.23-9.07) K/mm3 RBC 4.45 L (4.63-6.08) M/mm3 Hgb 13.8 (13.7-17.5) gm/dl Hct 39.5 L (40.1-51.0) % MCV 88.8 (79.0-92.2) fl MCH 31.0 (25.7-32.2) pg MCHC 34.9 (32.2-35.5) g/dl RDW Std Deviation 44.0 H (35.1-43.9) fL Plt Count 151 L (163-337) K/mm3 MPV 9.4 (9.4-12.3) fl Neut % (Auto) 86.9 H (34.0-67.9) % Lymph % (Auto) 6.0 L (21.8-53.1) % [place] % (Auto) 6.5 (5.3-12.2) % Eos % (Auto) 0 L (0.8-7.0) Baso % (Auto) 0.1 (0.1-1.2) % Neut # (Auto) 23.27 H (1.78-5.38) K/mm3 Lymph # (Auto) 1.60 (1.32-3.57) K/mm3 [place] # (Auto) 1.74 H (0.30-0.82) K/mm3 Eos # (Auto) 0.00 L (0.04-0.54) K/mm3 Baso # (Auto) 0.02 (0.01-0.08) K/mm3 Neutrophils % (Manual) (40-60) % Band Neutrophils % (0-10) % Lymphocytes % (Manual) (20-40) % Atypical Lymphs % % Monocytes % (Manual) (2-10) % Eosinophils % (Manual) (0.8-7.0) % Basophils % (Manual) (0.2-1.2) Manual Slide Review Abnormal smear Platelet Estimate RBC Morph Comment Sodium (136-145) mEq/L Potassium (3.5-5.1) mEq/L Chloride (98-107) mEq/L Carbon Dioxide (21-32) mEq/L Anion Gap (5-15) BUN (7-18) mg/dL Creatinine (0.7-1.3) mg/dL Est Cr Clr Drug Dosing mL/min Estimated GFR (MDRD) (>60) mL/min BUN/Creatinine Ratio (14-18) Glucose (70-99) mg/dL Lactic Acid 1.6 1.4 (0.4-2.0) mmol/L Calcium (8.5-10.1) mg/dL Total Bilirubin (0.2-1.0) mg/dL AST (15-37) U/L ALT (16-63) U/L Alkaline Phosphatase (46-116) U/L Total Protein (6.4-8.2) g/dl Albumin (3.4-5.0) g/dl Globulin gm/dL Albumin/Globulin Ratio (1-2) Urine Color (Yellow) Urine Appearance (Clear) Urine pH (5.0-8.0) Ur Specific Stuart (1.005-1.030) Urine Protein (Negative) Urine Glucose (UA) (Negative) Urine Ketones (Negative) Urine Occult Blood (Negative) Urine Nitrite (Negative) Urine Bilirubin (Negative) Urine Urobilinogen (0.2-1.0) Ur Leukocyte Esterase (Negative) SARS-CoV-2 RNA (URIAH) (NEGATIVE) 02/03/21 Range/Units 06:30 WBC (4.23-9.07) K/mm3 RBC (4.63-6.08) M/mm3 Hgb (13.7-17.5) gm/dl Hct (40.1-51.0) % MCV (79.0-92.2) fl MCH (25.7-32.2) pg MCHC (32.2-35.5) g/dl RDW Std Deviation (35.1-43.9) fL Plt Count (163-337) K/mm3 MPV (9.4-12.3) fl Neut % (Auto) (34.0-67.9) % Lymph % (Auto) (21.8-53.1) % [place] % (Auto) (5.3-12.2) % Eos % (Auto) (0.8-7.0) Baso % (Auto) (0.1-1.2) % Neut # (Auto) (1.78-5.38) K/mm3 Lymph # (Auto) (1.32-3.57) K/mm3 [place] # (Auto) (0.30-0.82) K/mm3 Eos # (Auto) (0.04-0.54) K/mm3 Baso # (Auto) (0.01-0.08) K/mm3 Neutrophils % (Manual) (40-60) % Band Neutrophils % (0-10) % Lymphocytes % (Manual) (20-40) % Atypical Lymphs % % Monocytes % (Manual) (2-10) % Eosinophils % (Manual) (0.8-7.0) % Basophils % (Manual) (0.2-1.2) Manual Slide Review Platelet Estimate RBC Morph Comment Sodium 141 (136-145) mEq/L Potassium 3.3 L (3.5-5.1) mEq/L Chloride 106 (98-107) mEq/L Carbon Dioxide 22 (21-32) mEq/L Anion Gap 16.3 H (5-15) BUN 17 (7-18) mg/dL Creatinine 1.3 (0.7-1.3) mg/dL Est Cr Clr Drug Dosing 40.56 mL/min Estimated GFR (MDRD) 52 (>60) mL/min BUN/Creatinine Ratio 13.1 L (14-18) Glucose 119 H (70-99) mg/dL Lactic Acid (0.4-2.0) mmol/L Calcium 7.9 L (8.5-10.1) mg/dL Total Bilirubin 0.7 (0.2-1.0) mg/dL AST 15 (15-37) U/L ALT 19 (16-63) U/L Alkaline Phosphatase 88 (46-116) U/L Total Protein 6.0 L (6.4-8.2) g/dl Albumin 2.7 L (3.4-5.0) g/dl Globulin 3.3 gm/dL Albumin/Globulin Ratio 0.8 L (1-2) Urine Color (Yellow) Urine Appearance (Clear) Urine pH (5.0-8.0) Ur Specific Stuart (1.005-1.030) Urine Protein (Negative) Urine Glucose (UA) (Negative) Urine Ketones (Negative) Urine Occult Blood (Negative) Urine Nitrite (Negative) Urine Bilirubin (Negative) Urine Urobilinogen (0.2-1.0) Ur Leukocyte Esterase (Negative) SARS-CoV-2 RNA (URIAH) (NEGATIVE) Result Diagrams: 02/03/21 06:30 02/03/21 06:30 Sepsis Event Note - Evaluation Sepsis Screening Result: Sepsis Risk - Focused Exam Vital Signs: Vital Signs Temp Temp Temp Pulse Pulse Resp BP 02/03/21 04:45 02/03/21 04:02 98.8 F 103 H 16 113/66 02/03/21 02:10 94 02/03/21 01:38 02/03/21 01:24 106 H 02/03/21 01:07 100.2 F 113 H 22 H 135/79 02/03/21 00:20 99.4 F 108 H 22 H 02/03/21 00:00 02/02/21 23:50 114 H 20 02/02/21 23:20 106 H 02/02/21 21:50 124 H 24 H 02/02/21 21:20 130 H 02/02/21 21:01 101.5 F H 02/02/21 20:30 120 H 19 BP Pulse Ox Pulse Ox 02/03/21 04:45 95 02/03/21 04:02 95 02/03/21 02:10 96 02/03/21 01:38 96 02/03/21 01:24 96 02/03/21 01:07 97 02/03/21 00:20 146/77 H 95 02/03/21 00:00 95 02/02/21 23:50 128/74 95 02/02/21 23:20 134/70 90 L 02/02/21 21:50 135/79 92 L 02/02/21 21:20 140/78 93 L 02/02/21 21:01 02/02/21 20:30 139/70 93 L *Q Meaningful Use (ADM) - VTE *Q VTE Criteria *Q: 2 Problem List Initiated/Reviewed/Updated: Yes Orders Last 24hrs: Active Orders 24 hr Category Date Time Status Admission Status [Patient Status] [ADT] Routine ADT 02/02/21 23:17 Active Admission Status [Patient Status] [ADT] Routine ADT 02/03/21 00:11 Active Bedrest Bathroom Privileges [RC] QSHIFT Care 02/03/21 01:38 Active Oxygen Therapy [RC] ASDIRECTED Care 02/03/21 00:00 Active Heart Healthy Diet [DIET] Diet 02/03/21 Breakfast Active Chest 1V Frontal [CR] Stat Exams 02/02/21 20:53 Taken CULTURE BLOOD [BC] Stat Lab 02/02/21 21:20 Received CULTURE BLOOD [BC] Stat Lab 02/02/21 21:25 Received CULTURE URINE [MREF] Routine Lab 02/03/21 01:30 Received Acetaminophen [TylenoL] Med 02/03/21 01:37 Active 650 mg PO Q6H PRN Pantoprazole [ProTONIX] Med 02/03/21 01:30 Active 40 mg PO BEDTIME Sodium Chloride 0.9% [Saline Flush] Med 02/02/21 20:55 Active 10 ml FLUSH ASDIRECTED PRN Tamsulosin [Flomax] Med 02/03/21 01:30 Active 0.4 mg PO BEDTIME cefTRIAXone [Rocephin] 1 gm Med 02/03/21 21:00 Active Sodium Chloride 0.9% [Normal Saline] 100 ml IV Q24H Blood Culture x2 Reflex Set [OM.PC] Stat Oth 02/02/21 20:54 Ordered Isolation [COMM] Routine Oth 02/02/21 20:00 Ordered Peripheral IV Insertion Adult [OM.PC] Routine Oth 02/02/21 20:54 Ordered Resuscitation Status Routine Resus Stat 02/03/21 01:20 Ordered Medication Orders Acetaminophen (Acetaminophen 325 Mg Tab) 650 mg PO Q6H PRN PRN Reason: Pain/Fever Ceftriaxone Sodium 1 gm/ (Sodium Chloride) 100 mls @ 200 mls/hr IV Q24H LEE Pantoprazole Sodium (Pantoprazole 40 Mg Tab.Cr) 40 mg PO BEDTIME LEE Last Admin: 02/03/21 02:08 Dose: 40 mg Documented by: JERI Sodium Chloride (Sodium Chloride 0.9% 10 Ml Syringe) 10 ml FLUSH ASDIRECTED PRN PRN Reason: Keep Vein Open Last Admin: 02/02/21 20:57 Dose: 10 ml Documented by: KAUSHIK Tamsulosin HCl (Tamsulosin 0.4 Mg Cap.Er) 0.4 mg PO BEDTIME [facility] Last Admin: 02/03/21 02:09 Dose: 0.4 mg Documented by: JERI Assessment/Plan Comment:: Assessment: This is a 89M with Past medical history of hypertension, asthma, GERD, hypothyroidism, BPH presenting to ED for evaluation of fever. At time of evaluation patient unable to provide history as he is very hard of hearing. Hx obtained from chart review. The patient presented to ED with fever with temp of 100.2F. Workup notable for WBC of 26.8, K 3.3, normal lactate. UA was concerning for UTI and the patient was thus started on IVF and ceftriaxone and admitted for further evaluation. 1. Mild sepsis; fever, tachycardia, leukocytosis secondary to UTI 2. Hx of HTN 3. Hx of Asthma 4. Hx of Hypothyroidism 5. Hx of GERD 6. Hx of BPH 7. Hypokalemia 8. Possible new onset Afib Plan -admit to inpatient -IVF -continue ceftriaxone -f/u UCx -Continue [employer] inhalers -continue PPI -continue flomax -potassium replacement -recheck EKG Code-full DVT ppx-heparin Dispo-likely home 2-3 days
[2021-02-03] MEDS ORDERED: Potassium Chloride 20 MEQ Tab.ER PO ONE (08:07)
[2021-02-03] MEDS ORDERED: Ondansetron 4 MG/2 ML SDV IV PRN (08:13)
[2021-02-03] MEDS ORDERED: Lactated Ringers 1,000 ML IV SCH (08:15)
[2021-02-03] MEDS: Formoterol/Mometasone 100-5 MCG 8.8 GM Inhaler IH SCH ×2 (08:34→20:19)
[2021-02-03] MEDS: Heparin Sodium 5,000 Units/ML Vial SUBCUT SCH ×2 (08:59→16:50)
[2021-02-03] MEDS: Levothyroxine 50 MCG Tab PO SCH (09:04)
[2021-02-03] MEDS ORDERED: Albuterol 6.7 GM Inhaler INH PRN (17:36)
[2021-02-03] MEDS ORDERED: hydrALAZINE 20 MG/ML SDV IVPUSH PRN (17:42)
[2021-02-03] MEDS: Apixaban 5 MG Tab PO SCH (18:00)
[2021-02-03] MEDS: amLODIPine 10 MG Tab PO SCH (18:00)
[2021-02-03] MEDS: cefTRIAXone 1 GM in Sodium Chloride 0.9% 100 ML IV SCH (22:32)
[2021-02-04] MEDS: Levothyroxine 50 MCG Tab PO SCH (07:24)
[2021-02-04] MEDS: Apixaban 5 MG Tab PO SCH ×2 (08:45→21:20)
[2021-02-04] MEDS: amLODIPine 10 MG Tab PO SCH (08:45)
[2021-02-04] MEDS: Formoterol/Mometasone 100-5 MCG 8.8 GM Inhaler IH SCH ×2 (09:09→20:25)
--- NOTE | 2021-02-04 10:50 | PCM.PN ---
- General Info Date of Service: 02/04/21 Admission Dx/Problem (Free Text): Admission Diagnosis/Problem Admission Diagnosis/Problem Urosepsis Subjective Update: patient endorses decreased appetite had yogurt for breakfast prelim urine culture growing Ecoli denies chest pain and SOB - Patient Data Vitals - Most Recent: Last Vital Signs Temp 98.8 F 02/04/21 08:43 Pulse 94 02/04/21 08:43 Resp 18 02/04/21 08:43 BP 142/85 H 02/04/21 08:45 Pulse Ox 94 L 02/04/21 09:10 Weight - Most Recent: 176 lb 1.6 oz I&O - Last 24 Hours: Intake & Output 02/03/21 02/04/21 02/04/21 22:59 06:59 14:59 Intake Total 1840 400 Output Total 1300 950 Balance 540 -550 Lab Results Last 24 Hours: Laboratory Results - last 24 hr 02/04/21 02/04/21 Range/Units 06:18 06:18 WBC 13.42 H (4.23-9.07) K/mm3 RBC 4.42 L (4.63-6.08) M/mm3 Hgb 13.5 L (13.7-17.5) gm/dl Hct 39.1 L (40.1-51.0) % MCV 88.5 (79.0-92.2) fl MCH 30.5 (25.7-32.2) pg MCHC 34.5 (32.2-35.5) g/dl RDW Std Deviation 44.3 H (35.1-43.9) fL Plt Count 165 (163-337) K/mm3 MPV 9.4 (9.4-12.3) fl Neut % (Auto) 86.6 H (34.0-67.9) % Lymph % (Auto) 6.0 L (21.8-53.1) % Conway % (Auto) 6.7 (5.3-12.2) % Eos % (Auto) 0.2 L (0.8-7.0) Baso % (Auto) 0.1 (0.1-1.2) % Neut # (Auto) 11.62 H (1.78-5.38) K/mm3 Lymph # (Auto) 0.80 L (1.32-3.57) K/mm3 Conway # (Auto) 0.90 H (0.30-0.82) K/mm3 Eos # (Auto) 0.03 L (0.04-0.54) K/mm3 Baso # (Auto) 0.02 (0.01-0.08) K/mm3 Manual Slide Review Abnormal smear Sodium 142 (136-145) mEq/L Potassium 3.2 L (3.5-5.1) mEq/L Chloride 106 (98-107) mEq/L Carbon Dioxide 24 (21-32) mEq/L Anion Gap 15.2 H (5-15) BUN 16 (7-18) mg/dL Creatinine 1.1 (0.7-1.3) mg/dL Est Cr Clr Drug Dosing 47.93 mL/min Estimated GFR (MDRD) > 60 (>60) mL/min BUN/Creatinine Ratio 14.5 (14-18) Glucose 113 H (70-99) mg/dL Calcium 8.4 L (8.5-10.1) mg/dL Garrett Results Last 24 Hours: Microbiology 02/02/21 19:40 Urine Culture - Preliminary Urine Escherichia Coli 02/02/21 21:20 Aerobic Blood Culture - Preliminary Blood - Venous NO GROWTH AFTER 1 DAY Anaerobic Blood Culture - Preliminary NO GROWTH AFTER 1 DAY 02/02/21 21:25 Aerobic Blood Culture - Preliminary Blood - Venous - Lab Draw NO GROWTH AFTER 1 DAY Anaerobic Blood Culture - Preliminary NO GROWTH AFTER 1 DAY Med Orders - Current: Current Medications Acetaminophen (Acetaminophen 325 Mg Tab) 650 mg PO Q6H PRN PRN Reason: Pain/Fever Albuterol (Albuterol 6.7 Gm Inhaler) 0 gm INH ASDIRECTED PRN PRN Reason: Dyspnea Amlodipine Besylate (Amlodipine 10 Mg Tab) 10 mg PO DAILY [facility] Last Admin: 02/04/21 08:45 Dose: 10 mg Documented by: Apixaban (Apixaban 5 Mg Tab) 5 mg PO BID [facility] Last Admin: 02/04/21 08:45 Dose: 5 mg Documented by: Hydralazine HCl (Hydralazine 20 Mg/Ml Sdv) 10 mg IVPUSH Q8H PRN PRN Reason: Other Ceftriaxone Sodium 1 gm/ (Sodium Chloride) 100 mls @ 200 mls/hr IV Q24H [facility] Last Admin: 02/03/21 22:32 Dose: 200 mls/hr Documented by: Levothyroxine Sodium (Levothyroxine 50 Mcg Tab) 50 mcg PO DAILY@0600 [facility] Last Admin: 02/04/21 07:24 Dose: 50 mcg Documented by: Mometasone Furoate/Formoterol Fumar (Formoterol/Mometasone 100-5 Mcg 8.8 Gm Inhaler) 0 puff IH BID [facility] Last Admin: 02/04/21 09:09 Dose: 2 inhaler Documented by: Ondansetron HCl (Ondansetron 4 Mg/2 Ml Sdv) 4 mg IV Q4H PRN PRN Reason: Nausea/Vomiting Pantoprazole Sodium (Pantoprazole 40 Mg Tab.Cr) 40 mg PO BEDTIME [facility] Last Admin: 02/03/21 22:32 Dose: 40 mg Documented by: Potassium Chloride (Potassium Chloride 20 Meq Tab.Er) 20 meq PO TID [facility] Sodium Chloride (Sodium Chloride 0.9% 10 Ml Syringe) 10 ml FLUSH ASDIRECTED PRN PRN Reason: Keep Vein Open Last Admin: 02/02/21 20:57 Dose: 10 ml Documented by: Tamsulosin HCl (Tamsulosin 0.4 Mg Cap.Er) 0.4 mg PO BEDTIME [facility] Last Admin: 02/03/21 22:32 Dose: 0.4 mg Documented by: Discontinued Medications Ceftriaxone Sodium (Ceftriaxone 2 Gm Vial) Confirm Administered Dose 2 gm .ROUTE .STK-MED ONE Stop: 02/02/21 21:00 Last Admin: 02/02/21 21:09 Dose: Not Given Documented by: Ceftriaxone Sodium (Ceftriaxone 2 Gm Advvial) Confirm Administered Dose 2 gm IV .STK-MED ONE Stop: 02/02/21 21:02 Last Admin: 02/02/21 21:31 Dose: Not Given Documented by: Heparin Sodium (Porcine) (Heparin Sodium 5,000 Units/Ml Vial) 5,000 units SUBCUT Q8H [facility] Last Admin: 02/03/21 16:50 Dose: 5,000 units Documented by: Sodium Chloride (Normal Saline) 1,000 mls @ 500 mls/hr IV ONETIME ONE Stop: 02/02/21 22:56 Last Admin: 02/02/21 21:05 Dose: 500 mls/hr Documented by: Ceftriaxone Sodium 2 gm/ (Sodium Chloride) 100 mls @ 200 mls/hr IV ONETIME ONE Stop: 02/02/21 21:26 Last Admin: 02/02/21 21:28 Dose: 200 mls/hr Documented by: Sodium Chloride (Normal Saline) Confirm Administered Dose 100 mls @ as directed .ROUTE .STK-MED ONE Stop: 02/02/21 21:02 Last Admin: 02/02/21 21:31 Dose: Not Given Documented by: Sodium Chloride (Normal Saline) 1,000 mls @ 200 mls/hr IV ASDIRECTED LEE Stop: 02/03/21 04:00 Last Admin: 02/02/21 23:50 Dose: 200 mls/hr Documented by: Lactated Ringer's (Ringers, Lactated) 1,000 mls @ 100 mls/hr IV ASDIRECTED [facility] Last Admin: 02/03/21 08:58 Dose: 100 mls/hr Documented by: Potassium Chloride (Potassium Chloride 20 Meq Tab.Er) 40 meq PO ONETIME ONE Stop: 02/03/21 08:08 Last Admin: 02/03/21 08:58 Dose: 40 meq Documented by: - Exam Physical Findings Comments:: Gen: elderly male in no acute distress; very hard of hearing HEENT: NCAT EOMI MMM, Neck: Supple CV: RRR normal s1 s2 Lungs: CTAB Abd: Soft, nt, nd Neuro: alert, moving extremities; appears at baseline state, difficult of hearing Psych: pleasant affect MSK: age appropriate muscle mass Skin: warm, dry no rash on face - Patient Data Lab Results Last 24 hrs: Laboratory Results - last 24 hr 02/04/21 02/04/21 Range/Units 06:18 06:18 WBC 13.42 H (4.23-9.07) K/mm3 RBC 4.42 L (4.63-6.08) M/mm3 Hgb 13.5 L (13.7-17.5) gm/dl Hct 39.1 L (40.1-51.0) % MCV 88.5 (79.0-92.2) fl MCH 30.5 (25.7-32.2) pg MCHC 34.5 (32.2-35.5) g/dl RDW Std Deviation 44.3 H (35.1-43.9) fL Plt Count 165 (163-337) K/mm3 MPV 9.4 (9.4-12.3) fl Neut % (Auto) 86.6 H (34.0-67.9) % Lymph % (Auto) 6.0 L (21.8-53.1) % Conway % (Auto) 6.7 (5.3-12.2) % Eos % (Auto) 0.2 L (0.8-7.0) Baso % (Auto) 0.1 (0.1-1.2) % Neut # (Auto) 11.62 H (1.78-5.38) K/mm3 Lymph # (Auto) 0.80 L (1.32-3.57) K/mm3 Conway # (Auto) 0.90 H (0.30-0.82) K/mm3 Eos # (Auto) 0.03 L (0.04-0.54) K/mm3 Baso # (Auto) 0.02 (0.01-0.08) K/mm3 Manual Slide Review Abnormal smear Sodium 142 (136-145) mEq/L Potassium 3.2 L (3.5-5.1) mEq/L Chloride 106 (98-107) mEq/L Carbon Dioxide 24 (21-32) mEq/L Anion Gap 15.2 H (5-15) BUN 16 (7-18) mg/dL Creatinine 1.1 (0.7-1.3) mg/dL Est Cr Clr Drug Dosing 47.93 mL/min Estimated GFR (MDRD) > 60 (>60) mL/min BUN/Creatinine Ratio 14.5 (14-18) Glucose 113 H (70-99) mg/dL Calcium 8.4 L (8.5-10.1) mg/dL Result Diagrams: 02/04/21 06:18 02/04/21 06:18 Garrett Results Last 24 hrs: Microbiology 02/02/21 19:40 Urine Culture - Preliminary Urine Escherichia Coli 02/02/21 21:20 Aerobic Blood Culture - Preliminary Blood - Venous NO GROWTH AFTER 1 DAY Anaerobic Blood Culture - Preliminary NO GROWTH AFTER 1 DAY 02/02/21 21:25 Aerobic Blood Culture - Preliminary Blood - Venous - Lab Draw NO GROWTH AFTER 1 DAY Anaerobic Blood Culture - Preliminary NO GROWTH AFTER 1 DAY Sepsis Event Note - Evaluation Sepsis Screening Result: No Definite Risk - Focused Exam Vital Signs: Vital Signs Temp Pulse Resp BP Pulse Ox Pulse Ox 02/04/21 09:10 94 L 02/04/21 08:45 142/85 H 02/04/21 08:43 98.8 F 94 18 142/85 H 92 L 02/04/21 05:23 98.2 F 86 15 132/72 92 L - Problem List Review Problem List Initiated/Reviewed/Updated: Yes - My Orders Last 24 Hours: My Active Orders 02/03/21 Lunch Regular Diet [DIET] 02/03/21 16:28 EKG 12 Lead [EK] Routine 02/03/21 17:36 Albuterol [Proventil HFA] 0 gm INH ASDIRECTED PRN 02/03/21 17:42 hydrALAZINE [Apresoline] 10 mg IVPUSH Q8H PRN 02/03/21 17:45 Apixaban [Eliquis] 5 mg PO BID amLODIPine [Norvasc] 10 mg PO DAILY 02/03/21 19:45 Patient Status [ADT] Routine 02/03/21 21:00 cefTRIAXone [Rocephin] 1 gm Sodium Chloride 0.9% [Normal Saline] 100 ml IV Q24H 02/04/21 09:43 Potassium Chloride [Klor-Con M20] 20 meq PO TID 02/05/21 06:00 BASIC METABOLIC PANEL,BMP [CHEM] DAILY CBC WITH AUTO DIFF [HEME] DAILY - Plan Plan:: Assessment: This is a 89M with Past medical history of hypertension, asthma, GERD, hypothyroidism, BPH presenting to ED for evaluation of fever. At time of evaluation patient unable to provide history as he is very hard of hearing. Hx obtained from chart review. The patient presented to ED with fever with temp of 100.2F. Workup notable for WBC of 26.8, K 3.3, normal lactate. UA was concerning for UTI and the patient was thus started on IVF and ceftriaxone and admitted for further evaluation. 1. Mild sepsis; fever, tachycardia, leukocytosis secondary to UTI; prelim UCX growing Ecoli sensitivity pending 2. Hx of HTN 3. Hx of Asthma 4. Hx of Hypothyroidism 5. Hx of GERD 6. Hx of BPH 7. Hypokalemia 8. new onset Afib; starting eliquis; holding starting BB due to sepsis Plan -admit to inpatient -IVF discontinue -continue ceftriaxone -f/u UCx -Continue [employer] inhalers -continue PPI -continue flomax -potassium replacement -recheck EKG->Afib -echo Code-full DVT ppx-heparin Dispo-likely home 2-3 days
[2021-02-04] MEDS: Potassium Chloride 20 MEQ Tab.ER PO SCH ×3 (10:55→21:21)
--- NOTE | 2021-02-04 11:53 | CR ---
Chest: Frontal view of the chest was obtained. Comparison: Prior chest x-ray of 10/24/30. Heart is enlarged. Tortuous thoracic aorta is noted. Lungs are clear with no acute parenchymal change. Right shoulder prosthesis is noted. No acute osseous abnormality is appreciated. Impression: 1. Stable findings as noted above. 2. Nothing acute is seen on frontal chest x-ray. Diagnostic code #2
[2021-02-04] MEDS: Tamsulosin 0.4 MG Cap.ER PO SCH (21:20)
[2021-02-04] MEDS: cefTRIAXone 1 GM in Sodium Chloride 0.9% 100 ML IV SCH (21:21)
[2021-02-05] MEDS ORDERED: Metoprolol Tartrate 5 MG in Sodium Chloride 0.9% 50 ML IV ONE (00:08)
[2021-02-05] MEDS ORDERED: Metoprolol Tartrate 5 MG/5 ML SDV IVPUSH PRN (00:08)
[2021-02-05] MEDS ORDERED: Metoprolol Tartrate 5 MG/5 ML SDV IVPUSH ONE (00:10)
[2021-02-05] MEDS: Levothyroxine 50 MCG Tab PO SCH (05:41)
[2021-02-05] MEDS: Apixaban 5 MG Tab PO SCH ×2 (09:26→20:26)
[2021-02-05] MEDS: Potassium Chloride 20 MEQ Tab.ER PO SCH ×2 (09:26→20:24)
[2021-02-05] MEDS: amLODIPine 10 MG Tab PO SCH (09:26)
[2021-02-05] MEDS ORDERED: Potassium Chloride 20 MEQ Tab.ER PO ONE (09:52)
[2021-02-05] MEDS: Formoterol/Mometasone 100-5 MCG 8.8 GM Inhaler IH SCH ×2 (10:18→20:16)
--- NOTE | 2021-02-05 12:45 | PCM.PN ---
- General Info Date of Service: 02/05/21 Admission Dx/Problem (Free Text): Admission Diagnosis/Problem Admission Diagnosis/Problem Urosepsis Functional Status: Reports: Pain Controlled, Tolerating Diet, Ambulating, Urinating. Denies: New Symptoms - Review of Systems General: Reports: Weakness. Denies: Fever, Fatigue, Malaise, Chills HEENT: Reports: No Symptoms. Denies: Headaches, Sore Throat Pulmonary: Reports: No Symptoms. Denies: Shortness of Breath, Cough, Sputum, Wheezing Cardiovascular: Reports: No Symptoms. Denies: Chest Pain, Palpitations, Edema Gastrointestinal: Denies: Abdominal Pain, Constipation, Diarrhea, Nausea, Vomiting Genitourinary: Reports: No Symptoms. Denies: Pain Musculoskeletal: Reports: No Symptoms Skin: Reports: No Symptoms. Denies: Cyanosis Neurological: Reports: No Symptoms. Denies: Confusion Psychiatric: Reports: No Symptoms - Patient Data Vitals - Most Recent: Last Vital Signs Temp 98.4 F 02/05/21 11:07 Pulse 50 L 02/05/21 11:07 Resp 16 02/05/21 11:07 BP 140/71 02/05/21 11:07 Pulse Ox 91 L 02/05/21 11:07 Weight - Most Recent: 175 lb 14.4 oz I&O - Last 24 Hours: Intake & Output 02/04/21 02/05/21 02/05/21 22:59 06:59 14:59 Intake Total 830 500 Output Total 700 1375 200 Balance 130 -875 -200 Lab Results Last 24 Hours: Laboratory Results - last 24 hr 02/05/21 02/05/21 Range/Units 06:02 06:02 WBC 9.16 H (4.23-9.07) K/mm3 RBC 4.59 L (4.63-6.08) M/mm3 Hgb 13.8 (13.7-17.5) gm/dl Hct 40.3 (40.1-51.0) % MCV 87.8 (79.0-92.2) fl MCH 30.1 (25.7-32.2) pg MCHC 34.2 (32.2-35.5) g/dl RDW Std Deviation 44.3 H (35.1-43.9) fL Plt Count 181 (163-337) K/mm3 MPV 9.6 (9.4-12.3) fl Neut % (Auto) 76.4 H (34.0-67.9) % Lymph % (Auto) 10.4 L (21.8-53.1) % Emery % (Auto) 11.8 (5.3-12.2) % Eos % (Auto) 0.7 L (0.8-7.0) Baso % (Auto) 0.2 (0.1-1.2) % Neut # (Auto) 7.00 H (1.78-5.38) K/mm3 Lymph # (Auto) 0.95 L (1.32-3.57) K/mm3 Emery # (Auto) 1.08 H (0.30-0.82) K/mm3 Eos # (Auto) 0.06 (0.04-0.54) K/mm3 Baso # (Auto) 0.02 (0.01-0.08) K/mm3 Sodium 139 (136-145) mEq/L Potassium 3.3 L (3.5-5.1) mEq/L Chloride 103 (98-107) mEq/L Carbon Dioxide 24 (21-32) mEq/L Anion Gap 15.3 H (5-15) BUN 14 (7-18) mg/dL Creatinine 1.1 (0.7-1.3) mg/dL Est Cr Clr Drug Dosing 47.93 mL/min Estimated GFR (MDRD) > 60 (>60) mL/min BUN/Creatinine Ratio 12.7 L (14-18) Glucose 121 H (70-99) mg/dL Calcium 8.5 (8.5-10.1) mg/dL Garrett Results Last 24 Hours: Microbiology 02/02/21 19:40 Urine Culture - Final Urine Escherichia Coli 02/02/21 21:20 Aerobic Blood Culture - Preliminary Blood - Venous NO GROWTH AFTER 2 DAYS Anaerobic Blood Culture - Preliminary NO GROWTH AFTER 2 DAYS 02/02/21 21:25 Aerobic Blood Culture - Preliminary Blood - Venous - Lab Draw NO GROWTH AFTER 2 DAYS Anaerobic Blood Culture - Preliminary NO GROWTH AFTER 2 DAYS Med Orders - Current: Current Medications Acetaminophen (Acetaminophen 325 Mg Tab) 650 mg PO Q6H PRN PRN Reason: Pain/Fever Albuterol (Albuterol 6.7 Gm Inhaler) 0 gm INH ASDIRECTED PRN PRN Reason: Dyspnea Amlodipine Besylate (Amlodipine 10 Mg Tab) 10 mg PO DAILY [facility] Last Admin: 02/05/21 09:26 Dose: 10 mg Documented by: Apixaban (Apixaban 5 Mg Tab) 5 mg PO BID [facility] Last Admin: 02/05/21 09:26 Dose: 5 mg Documented by: Hydralazine HCl (Hydralazine 20 Mg/Ml Sdv) 10 mg IVPUSH Q8H PRN PRN Reason: Other Levothyroxine Sodium (Levothyroxine 50 Mcg Tab) 50 mcg PO DAILY@0600 [facility] Last Admin: 02/05/21 05:41 Dose: 50 mcg Documented by: Metoprolol Tartrate (Metoprolol Tartrate 5 Mg/5 Ml Sdv) 5 mg IVPUSH Q4H PRN PRN Reason: Tachycardia Mometasone Furoate/Formoterol Fumar (Formoterol/Mometasone 100-5 Mcg 8.8 Gm Inhaler) 0 puff IH BID [facility] Last Admin: 02/05/21 10:18 Dose: 2 inhaler Documented by: Ondansetron HCl (Ondansetron 4 Mg/2 Ml Sdv) 4 mg IV Q4H PRN PRN Reason: Nausea/Vomiting Potassium Chloride (Potassium Chloride 20 Meq Tab.Er) 40 meq PO BID [facility] Stop: 02/06/21 09:01 Sodium Chloride (Sodium Chloride 0.9% 10 Ml Syringe) 10 ml FLUSH ASDIRECTED PRN PRN Reason: Keep Vein Open Last Admin: 02/02/21 20:57 Dose: 10 ml Documented by: Tamsulosin HCl (Tamsulosin 0.4 Mg Cap.Er) 0.4 mg PO BEDTIME [facility] Last Admin: 02/04/21 21:20 Dose: 0.4 mg Documented by: Trimethoprim/Sulfamethoxazole (Sulfamethoxazole/Trimethoprim 800-160 Mg Tab) 1 tab PO BID [facility] Stop: 02/11/21 21:01 Discontinued Medications Ceftriaxone Sodium (Ceftriaxone 2 Gm Vial) Confirm Administered Dose 2 gm .ROUTE .STK-MED ONE Stop: 02/02/21 21:00 Last Admin: 02/02/21 21:09 Dose: Not Given Documented by: Ceftriaxone Sodium (Ceftriaxone 2 Gm Advvial) Confirm Administered Dose 2 gm IV .STK-MED ONE Stop: 02/02/21 21:02 Last Admin: 02/02/21 21:31 Dose: Not Given Documented by: Heparin Sodium (Porcine) (Heparin Sodium 5,000 Units/Ml Vial) 5,000 units SUBCUT Q8H [facility] Last Admin: 02/03/21 16:50 Dose: 5,000 units Documented by: Sodium Chloride (Normal Saline) 1,000 mls @ 500 mls/hr IV ONETIME ONE Stop: 02/02/21 22:56 Last Admin: 02/02/21 21:05 Dose: 500 mls/hr Documented by: Ceftriaxone Sodium 2 gm/ (Sodium Chloride) 100 mls @ 200 mls/hr IV ONETIME ONE Stop: 02/02/21 21:26 Last Admin: 02/02/21 21:28 Dose: 200 mls/hr Documented by: Sodium Chloride (Normal Saline) Confirm Administered Dose 100 mls @ as directed .ROUTE .STK-MED ONE Stop: 02/02/21 21:02 Last Admin: 02/02/21 21:31 Dose: Not Given Documented by: Sodium Chloride (Normal Saline) 1,000 mls @ 200 mls/hr IV ASDIRECTED [facility] Stop: 02/03/21 04:00 Last Admin: 02/02/21 23:50 Dose: 200 mls/hr Documented by: Ceftriaxone Sodium 1 gm/ (Sodium Chloride) 100 mls @ 200 mls/hr IV Q24H [facility] Last Admin: 02/04/21 21:21 Dose: 200 mls/hr Documented by: Lactated Ringer's (Ringers, Lactated) 1,000 mls @ 100 mls/hr IV ASDIRECTED [facility] Last Admin: 02/03/21 08:58 Dose: 100 mls/hr Documented by: Metoprolol Tartrate 5 mg/ (Sodium Chloride) 55 mls @ 100 mls/hr IV ONETIME ONE Stop: 02/05/21 00:40 Last Admin: 02/05/21 00:21 Dose: Not Given Documented by: Metoprolol Tartrate (Metoprolol Tartrate 5 Mg/5 Ml Sdv) 5 mg IVPUSH ONETIME ONE Stop: 02/05/21 00:11 Last Admin: 02/05/21 00:29 Dose: 5 mg Documented by: Pantoprazole Sodium (Pantoprazole 40 Mg Tab.Cr) 40 mg PO BEDTIME [facility] Last Admin: 02/03/21 22:32 Dose: 40 mg Documented by: Potassium Chloride (Potassium Chloride 20 Meq Tab.Er) 40 meq PO ONETIME ONE Stop: 02/03/21 08:08 Last Admin: 02/03/21 08:58 Dose: 40 meq Documented by: Potassium Chloride (Potassium Chloride 20 Meq Tab.Er) 20 meq PO TID [facility] Last Admin: 02/05/21 09:26 Dose: 20 meq Documented by: Potassium Chloride (Potassium Chloride 20 Meq Tab.Er) 20 meq PO ONETIME ONE Stop: 02/05/21 09:53 Last Admin: 02/05/21 10:30 Dose: 20 meq Documented by: - Exam Quality Assessment: DVT Prophylaxis. No: Supplemental Oxygen, Urine Catheter General: Alert, Oriented, Cooperative, No Acute Distress HEENT: Pupils Equal, Pupils Reactive, Mucous Membr. Moist/[place], Other (Very hard of hearing) Neck: Supple, Trachea Midline Lungs: Clear to Auscultation, Normal Respiratory Effort Cardiovascular: Regular Rate, Regular Rhythm GI/Abdominal Exam: Normal Bowel Sounds, Soft, Non-Tender, No Distention (Male) Exam: Deferred Back Exam: Normal Inspection, Full Range of Motion Extremities: Normal Inspection, Normal Range of Motion, Non-Tender, No Pedal Edema, Normal Capillary Refill Peripheral Pulses: 2+: Radial (L), Radial (R) Skin: Warm, Dry, Intact Neurological: No New Focal Deficit Psy/Mental Status: Alert, Normal Affect, Normal Mood - Patient Data Lab Results Last 24 hrs: Laboratory Results - last 24 hr 02/05/21 02/05/21 Range/Units 06:02 06:02 WBC 9.16 H (4.23-9.07) K/mm3 RBC 4.59 L (4.63-6.08) M/mm3 Hgb 13.8 (13.7-17.5) gm/dl Hct 40.3 (40.1-51.0) % MCV 87.8 (79.0-92.2) fl MCH 30.1 (25.7-32.2) pg MCHC 34.2 (32.2-35.5) g/dl RDW Std Deviation 44.3 H (35.1-43.9) fL Plt Count 181 (163-337) K/mm3 MPV 9.6 (9.4-12.3) fl Neut % (Auto) 76.4 H (34.0-67.9) % Lymph % (Auto) 10.4 L (21.8-53.1) % Emery % (Auto) 11.8 (5.3-12.2) % Eos % (Auto) 0.7 L (0.8-7.0) Baso % (Auto) 0.2 (0.1-1.2) % Neut # (Auto) 7.00 H (1.78-5.38) K/mm3 Lymph # (Auto) 0.95 L (1.32-3.57) K/mm3 Emery # (Auto) 1.08 H (0.30-0.82) K/mm3 Eos # (Auto) 0.06 (0.04-0.54) K/mm3 Baso # (Auto) 0.02 (0.01-0.08) K/mm3 Sodium 139 (136-145) mEq/L Potassium 3.3 L (3.5-5.1) mEq/L Chloride 103 (98-107) mEq/L Carbon Dioxide 24 (21-32) mEq/L Anion Gap 15.3 H (5-15) BUN 14 (7-18) mg/dL Creatinine 1.1 (0.7-1.3) mg/dL Est Cr Clr Drug Dosing 47.93 mL/min Estimated GFR (MDRD) > 60 (>60) mL/min BUN/Creatinine Ratio 12.7 L (14-18) Glucose 121 H (70-99) mg/dL Calcium 8.5 (8.5-10.1) mg/dL Result Diagrams: 02/05/21 06:02 02/05/21 06:02 Garrett Results Last 24 hrs: Microbiology 02/02/21 19:40 Urine Culture - Final Urine Escherichia Coli 02/02/21 21:20 Aerobic Blood Culture - Preliminary Blood - Venous NO GROWTH AFTER 2 DAYS Anaerobic Blood Culture - Preliminary NO GROWTH AFTER 2 DAYS 02/02/21 21:25 Aerobic Blood Culture - Preliminary Blood - Venous - Lab Draw NO GROWTH AFTER 2 DAYS Anaerobic Blood Culture - Preliminary NO GROWTH AFTER 2 DAYS Sepsis Event Note - Evaluation Sepsis Screening Result: No Definite Risk - Focused Exam Vital Signs: Vital Signs Temp Pulse Resp BP Pulse Ox Pulse Ox 02/05/21 11:07 98.4 F 50 L 16 140/71 91 L 02/05/21 10:29 76 96 02/05/21 10:19 95 02/05/21 09:26 120/70 02/05/21 07:26 98.4 F 83 18 120/70 95 02/05/21 04:54 98.4 F 86 15 133/66 96 - Problem List & Annotations (1) New onset a-fib SNOMED Code(s): 65404641 Code(s): I48.91 - UNSPECIFIED ATRIAL FIBRILLATION Status: Acute Priority: High Current Visit: Yes (2) COPD (chronic obstructive pulmonary disease) SNOMED Code(s): 89317120 Code(s): J44.9 - CHRONIC OBSTRUCTIVE PULMONARY DISEASE, UNSPECIFIED Status: Chronic Priority: Low Current Visit: No Qualifiers: COPD type: unspecified COPD Qualified Code(s): J44.9 - Chronic obstructive pulmonary disease, unspecified (3) GERD (gastroesophageal reflux disease) SNOMED Code(s): 982307683 Code(s): K21.9 - GASTRO-ESOPHAGEAL REFLUX DISEASE WITHOUT ESOPHAGITIS Status: Chronic Priority: Low Current Visit: No Qualifiers: Esophagitis presence: esophagitis presence not specified Qualified Code(s): K21.9 - Gastro-esophageal reflux disease without esophagitis (4) BPH (benign prostatic hyperplasia) SNOMED Code(s): 199817818 Code(s): N40.0 - BENIGN PROSTATIC HYPERPLASIA WITHOUT LOWER URINRY TRACT SYMP Status: Chronic Priority: Medium Current Visit: No Qualifiers: Lower urinary tract symptom presence: symptoms present Lower urinary tract symptom detail: nocturia Qualified Code(s): N40.1 - Benign prostatic hyperplasia with lower urinary tract symptoms; R35.1 - Nocturia (5) Bilateral carotid bruits SNOMED Code(s): 551562928, 381355505 Code(s): R09.89 - OTH SYMPTOMS AND SIGNS INVOLVING THE CIRC AND RESP SYSTEMS Status: Chronic Priority: Low Current Visit: No (6) History of MRSA infection SNOMED Code(s): 996449057, 395139277 Code(s): Z86.14 - PERSONAL HISTORY OF METHICILLIN RESIS STAPH INFECTION Status: Chronic Priority: Low Current Visit: No (7) Sepsis SNOMED Code(s): 25046130 Code(s): A41.9 - SEPSIS, UNSPECIFIED ORGANISM Status: Resolved Priority: High Current Visit: Yes Qualifiers: Sepsis type: Escherichia coli Sepsis acute organ dysfunction status: with acute organ dysfunction Severe sepsis acute organ dysfunction type: acute renal failure Acute renal failure type: unspecified Severe sepsis shock status: without septic shock Qualified Code(s): A41.51 - Sepsis due to Escherichia coli [E. coli]; R65.20 - Severe sepsis without septic shock; N17.9 - Acute kidney failure, unspecified (8) UTI, Urinary tract infectious disease SNOMED Code(s): 55356982 Code(s): N39.0 - URINARY TRACT INFECTION, SITE NOT SPECIFIED Status: Acute Priority: High Current Visit: Yes (9) Asthma SNOMED Code(s): 317677781 Code(s): J45.909 - UNSPECIFIED ASTHMA, UNCOMPLICATED Status: Chronic Priority: Low Current Visit: No Qualifiers: Asthma severity: unspecified severity Asthma persistence: unspecified Asthma complication type: uncomplicated Qualified Code(s): J45.909 - Unspecified asthma, uncomplicated (10) HTN (hypertension) SNOMED Code(s): 98994812 Code(s): I10 - ESSENTIAL (PRIMARY) HYPERTENSION Status: Chronic Priority: Medium Current Visit: No Qualifiers: Hypertension type: unspecified Qualified Code(s): I10 - Essential (primary) hypertension (11) Hypothyroidism SNOMED Code(s): 76503895 Code(s): E03.9 - HYPOTHYROIDISM, UNSPECIFIED Status: Chronic Priority: Low Current Visit: No Qualifiers: Hypothyroidism type: unspecified Qualified Code(s): E03.9 - Hypothyroidism, unspecified (12) Osteoarthritis SNOMED Code(s): 255380003 Code(s): M19.90 - UNSPECIFIED OSTEOARTHRITIS, UNSPECIFIED SITE Status: Chronic Priority: Low Current Visit: No Qualifiers: Osteoarthritis location: hip Osteoarthritis type: unspecified Laterality: unspecified laterality Qualified Code(s): M16.9 - Osteoarthritis of hip, unspecified - Problem List Review Problem List Initiated/Reviewed/Updated: Yes - My Orders Last 24 Hours: My Active Orders 02/05/21 09:52 Consult to Case Management/Prison Guard Supervisor [CONS] Routine 02/05/21 09:55 OT Evaluation and Treatment [CONS] Routine 02/05/21 09:59 Bladder Scan [RC] ASDIRECTED 02/05/21 21:00 Potassium Chloride [Klor-Con M20] 40 meq PO BID Sulfamethoxazole/Trimethoprim [Septra DS] 1 tab PO BID 02/06/21 05:11 BASIC METABOLIC PANEL,BMP [CHEM] AM CBC WITH AUTO DIFF [HEME] AM CRP [C-REACTIVE PROTEIN] [CHEM] AM MAGNESIUM [CHEM] AM 02/06/21 08:00 Echo Comp wo Cont [US] Routine 02/07/21 05:11 BASIC METABOLIC PANEL,BMP [CHEM] AM CBC WITH AUTO DIFF [HEME] AM CRP [C-REACTIVE PROTEIN] [CHEM] AM MAGNESIUM [CHEM] AM 02/08/21 05:11 BASIC METABOLIC PANEL,BMP [CHEM] AM CBC WITH AUTO DIFF [HEME] AM CRP [C-REACTIVE PROTEIN] [CHEM] AM MAGNESIUM [CHEM] AM 02/09/21 05:11 BASIC METABOLIC PANEL,BMP [CHEM] AM CBC WITH AUTO DIFF [HEME] AM CRP [C-REACTIVE PROTEIN] [CHEM] AM MAGNESIUM [CHEM] AM - Assessment Assessment:: 02/05/2021 This is an 89-year-old male who presented to ED on 02-02-2021 with abdominal pain and was found to have a urinary tract infection. Patient was septic with a leukocytosis, tachycardia, and fever. He was noted to have acute renal injury and be quite dry. He was started on 1 g Rocephin daily and urine cultures grew out pansensitive E. coli. We will switch him to twice daily Bactrim DS today. His renal function did improve with IV fluids and creatinine today was 1.1 with a GFR of greater than 60. Potassium has been low and supplementation will be increased to 40 mEq twice daily starting today. WBC on admission was 29.88 and today it is 9.16. TSH was obtained and was 1.686. He was started on 5 mg p.o. twice daily Eliquis due to new onset A. fib. Rate has been controlled, and actually a bit low low in the 50s. He remains in A. fib. Echocardiogram is ordered but unfortunately we are unable to obtain that today due to the holiday weekend. Will order tomorrow and await results. Likely discharge in 1 to 2 days. - Plan Plan:: Assessment: This is a 89M with Past medical history of hypertension, asthma, GERD, hypothyroidism, BPH presenting to ED for evaluation of fever. At time of evaluation patient unable to provide history as he is very hard of hearing. Hx obtained from chart review. The patient presented to ED with fever with temp of 100.2F. Workup notable for WBC of 26.8, K 3.3, normal lactate. UA was concerning for UTI and the patient was thus started on IVF and ceftriaxone and admitted for further evaluation. 1. Mild sepsis; fever, tachycardia, leukocytosis secondary to UTI; prelim UCX growing madden-sensitive Ecoli 2. Hx of HTN 3. Hx of Asthma 4. Hx of Hypothyroidism 5. Hx of GERD 6. Hx of BPH 7. Hypokalemia 8. new onset Afib; started eliquis; holding starting BB due to sepsis Plan -admit to inpatient -discontinue ceftriaxone and start Bactrim DS BID -Continue [employer] inhalers -continue PPI -continue flomax -potassium replacement -> 40meq BID -recheck EKG->Afib -echo tomorrow (earliest date available due to holiday weekend) -CM/SW consult -PT/OT consult Code-full PCP: dr. Marsh DVT ppx-heparin Dispo-likely home 1-2 days
[2021-02-05] MEDS: Sulfamethoxazole/Trimethoprim 800-160 MG Tab PO SCH (20:25)
[2021-02-05] MEDS: Tamsulosin 0.4 MG Cap.ER PO SCH (20:25)
[2021-02-06] MEDS: Levothyroxine 50 MCG Tab PO SCH (05:04)
[2021-02-06] MEDS: Formoterol/Mometasone 100-5 MCG 8.8 GM Inhaler IH SCH (09:25)
[2021-02-06] MEDS: Potassium Chloride 20 MEQ Tab.ER PO SCH (09:26)
[2021-02-06] MEDS: Apixaban 5 MG Tab PO SCH (09:26)
[2021-02-06] MEDS: Sulfamethoxazole/Trimethoprim 800-160 MG Tab PO SCH (09:26)
[2021-02-06] MEDS: amLODIPine 10 MG Tab PO SCH (09:32)
--- NOTE | 2021-02-06 11:34 | PCM.DCSUM1 ---
Discharge Summary - Hospital Course HPI Initial Comments: This is a 89M with Past medical history of hypertension, asthma, GERD, hypothyroidism, BPH presenting to ED for evaluation of fever. At time of evaluation patient unable to provide history as he is very hard of hearing. Hx obtained from chart review. The patient presented to ED with fever with temp of 100.2F. Workup notable for WBC of 26.8, K 3.3, normal lactate. UA was concerning for UTI and the patient was thus started on IVF and ceftriaxone and admitted for further evaluation. Diagnosis: Stroke: No - Discharge Data Discharge Date: 02/06/21 (Admit date: 02/02/2021) Discharge Disposition: Home, Self-Care 01 Condition: Good - Referral to Home Health Primary Care Physician: Martir Marsh MD - Discharge Diagnosis/Problem(s) (1) New onset a-fib SNOMED Code(s): 54741122 ICD Code: I48.91 - UNSPECIFIED ATRIAL FIBRILLATION Status: Acute Priority: High Current Visit: Yes (2) COPD (chronic obstructive pulmonary disease) SNOMED Code(s): 18693404 ICD Code: J44.9 - CHRONIC OBSTRUCTIVE PULMONARY DISEASE, UNSPECIFIED Status: Chronic Priority: Low Current Visit: No Qualifiers: COPD type: unspecified COPD Qualified Code(s): J44.9 - Chronic obstructive pulmonary disease, unspecified (3) GERD (gastroesophageal reflux disease) SNOMED Code(s): 451741765 ICD Code: K21.9 - GASTRO-ESOPHAGEAL REFLUX DISEASE WITHOUT ESOPHAGITIS Status: Chronic Priority: Low Current Visit: No Qualifiers: Esophagitis presence: esophagitis presence not specified Qualified Code(s): K21.9 - Gastro-esophageal reflux disease without esophagitis (4) BPH (benign prostatic hyperplasia) SNOMED Code(s): 833098247 ICD Code: N40.0 - BENIGN PROSTATIC HYPERPLASIA WITHOUT LOWER URINRY TRACT SYMP Status: Chronic Priority: Medium Current Visit: No Qualifiers: Lower urinary tract symptom presence: symptoms present Lower urinary tract symptom detail: nocturia Qualified Code(s): N40.1 - Benign prostatic hyperplasia with lower urinary tract symptoms; R35.1 - Nocturia (5) Bilateral carotid bruits SNOMED Code(s): 050870092, 527062269 ICD Code: R09.89 - OTH SYMPTOMS AND SIGNS INVOLVING THE CIRC AND RESP SYSTEMS Status: Chronic Priority: Low Current Visit: No (6) History of MRSA infection SNOMED Code(s): 838677567, 149605912 ICD Code: Z86.14 - PERSONAL HISTORY OF METHICILLIN RESIS STAPH INFECTION Status: Chronic Priority: Low Current Visit: No (7) Sepsis SNOMED Code(s): 76223228 ICD Code: A41.9 - SEPSIS, UNSPECIFIED ORGANISM Status: Resolved Priority: High Current Visit: Yes Qualifiers: Sepsis type: Escherichia coli Sepsis acute organ dysfunction status: with acute organ dysfunction Severe sepsis acute organ dysfunction type: acute renal failure Acute renal failure type: unspecified Severe sepsis shock status: without septic shock Qualified Code(s): A41.51 - Sepsis due to Escherichia coli [E. coli]; R65.20 - Severe sepsis without septic shock; N17.9 - Acute kidney failure, unspecified (8) UTI, Urinary tract infectious disease SNOMED Code(s): 65370730 ICD Code: N39.0 - URINARY TRACT INFECTION, SITE NOT SPECIFIED Status: Acute Priority: High Current Visit: Yes (9) Asthma SNOMED Code(s): 850992540 ICD Code: J45.909 - UNSPECIFIED ASTHMA, UNCOMPLICATED Status: Chronic Priority: Low Current Visit: No Qualifiers: Asthma severity: unspecified severity Asthma persistence: unspecified Asthma complication type: uncomplicated Qualified Code(s): J45.909 - Unspecified asthma, uncomplicated (10) HTN (hypertension) SNOMED Code(s): 95209545 ICD Code: I10 - ESSENTIAL (PRIMARY) HYPERTENSION Status: Chronic Priority: Medium Current Visit: No Qualifiers: Hypertension type: unspecified Qualified Code(s): I10 - Essential (primary) hypertension (11) Hypothyroidism SNOMED Code(s): 08163899 ICD Code: E03.9 - HYPOTHYROIDISM, UNSPECIFIED Status: Chronic Priority: Low Current Visit: No Qualifiers: Hypothyroidism type: unspecified Qualified Code(s): E03.9 - Hypothyroidism, unspecified (12) Osteoarthritis SNOMED Code(s): 321472178 ICD Code: M19.90 - UNSPECIFIED OSTEOARTHRITIS, UNSPECIFIED SITE Status: Chronic Priority: Low Current Visit: No Qualifiers: Osteoarthritis location: hip Osteoarthritis type: unspecified Laterality: unspecified laterality Qualified Code(s): M16.9 - Osteoarthritis of hip, unspecified (13) Hypokalemia SNOMED Code(s): 31281715 ICD Code: E87.6 - HYPOKALEMIA Status: Acute Priority: High Current Visit: Yes - Patient Summary/Data Consults: Consultations 02/03/21 08:13 PT Evaluation and Treatment [CONS] Routine 02/05/21 09:52 Consult to Case Management/Machine Assistant [CONS] Routine 02/05/21 09:55 OT Evaluation and Treatment [CONS] Routine Labs Pending at D/C: Echocardiogram obtained 02/06/2021 - results pending. Recommended Follow-up Testing/Procedures: Follow-up with primary care provider within 7-10 days of discharge, sooner if needed. -Recommend repeat CBC, CMP, and magnesium at that visit. Please pay attention to potassium as it was low here. -Patient was started on Eliquis twice daily for new onset A. fib. Rate has been low so no rate control medications were started. -Echocardiogram was obtained and is pending. Please review this with patient in follow-up. Recommend cardiology consultation after discharge. Hospital Course: This is an 89-year-old male who presented to ED on 02/02/2021 with abdominal pain and was found to have a urinary tract infection. Patient was septic with a leukocytosis, tachycardia, and fever. He was noted to have acute renal injury and be quite dry. He was started on 1 g Rocephin daily and urine cultures grew out pansensitive E. coli. His renal function did improve with IV fluids. Potassium has been low and was supplemented. WBC on admission was 29.88 and today it is 8.43. TSH was obtained and was 1.686. He was started on 5 mg p.o. twice daily Eliquis due to new onset A. fib. Rate has been controlled, and actually a bit low low in the 50s at times. He remains in A. fib. Echocardiogram is obtained and is pending currently. This will be forwarded to the primary care provider. PT and OT did evaluate the patient and recommended home with no further services. He was switched to Bactrim DS twice daily and has been tolerating this well. He will complete antibiotic treatment on the evening of 02/11/2021. All other home medications were continued. Recommend follow-up with primary care provider within 7 to 10 days of discharge, sooner if needed. Recommend repeat CBC, CMP, and magnesium at that time. Recommend outpatient cardiology follow-up. Advised patient to contact primary care provider return the emergency room should symptoms return or worsen. - Patient Instructions Diet: Heart Healthy Diet Activity: As Tolerated Showering/Bathing: May Shower Notify Provider of: Fever, Increased Pain, Nausea and/or Vomiting Other/Special Instructions: Up with primary care provider within 7 to 10 days of discharge, sooner if needed. Recommend cardiology consultation after discharge. We obtained an echocardiogram prior to you discharging. This is an ultrasound of your heart which shows structure and function. We will forward these results to your primary care provider and he will go through them with you. You are prescribed an antibiotic for your urinary tract infection. Take this twice a day with your first dose tonight, 02/06/2021. Take this until it is gone. He was started on a blood thinner because of your irregular heartbeat known as atrial fibrillation. Take this twice a day as directed. Resume all home medications. Should symptoms return or worsen contact primary care provider return to the emergency room. - Discharge Plan *PRESCRIPTION DRUG MONITORING PROGRAM REVIEWED*: No *COPY OF PRESCRIPTION DRUG MONITORING REPORT IN PATIENT IMELDA: No Prescriptions/Med Rec: Apixaban [Eliquis] 5 mg PO BID #40 tablet Sulfamethoxazole/Trimethoprim [Septra DS] 1 tab PO BID #11 tablet Home Medications: Home Meds Albuterol [IJD: Ventolin HFA] 2 inh PO ASDIRECTED PRN 01/25/16 [History] Budesonide/Formoterol Fumarate [Symbicort 80-4.5 MCG] 2 inh PO BID 01/25/16 [History] Clobetasol [Clobetasol 0.05%] 1 ea TOP ASDIRECTED PRN 01/25/16 [History] Omeprazole 20 mg PO BEDTIME 01/25/16 [History] amLODIPine Besylate [Amlodipine Besylate] 10 mg PO DAILY 01/25/16 [History] Levothyroxine [Synthroid] 50 mcg PO DAILY 12/20/16 [History] Tamsulosin HCl 0.4 mg PO BEDTIME 12/23/16 [History] Multivitamin 1 each PO DAILY 02/02/21 [History] Apixaban [Eliquis] 5 mg PO BID #40 tablet 02/06/21 [Rx] Sulfamethoxazole/Trimethoprim [Septra DS] 1 tab PO BID #11 tablet 02/06/21 [Rx] Oxygen Therapy Mode: Room Air Patient Handouts: Hypokalemia, Chronic Obstructive Pulmonary Disease, [id number]-[id number], Urinary Tract Infection, Adult, Jgut-[id number], Atrial Fibrillation, Atrial Fibrillation, [id number]-eg-[id number] Referrals: Martir Marsh MD [Primary Care Provider] - 02/15/21 8:10 am (This is your arrival time.) - Discharge Summary/Plan Comment DC Time >30 min.: Yes (45 mins ) - General Info Date of Service: 02/06/21 Admission Dx/Problem (Free Text: Admission Diagnosis/Problem Admission Diagnosis/Problem Urosepsis Functional Status: Reports: Pain Controlled, Tolerating Diet, Ambulating, Urinating. Denies: New Symptoms - Review of Systems General: Reports: No Symptoms. Denies: Fever, Weakness, Fatigue, Malaise, Chills HEENT: Reports: No Symptoms. Denies: Headaches, Sore Throat Pulmonary: Reports: No Symptoms. Denies: Shortness of Breath, Cough, Sputum, Wheezing Cardiovascular: Reports: No Symptoms. Denies: Chest Pain, Palpitations, Dyspnea on Exertion Gastrointestinal: Reports: No Symptoms. Denies: Abdominal Pain, Constipation, Diarrhea, Nausea, Vomiting Genitourinary: Reports: No Symptoms. Denies: Pain Musculoskeletal: Reports: No Symptoms Skin: Reports: No Symptoms. Denies: Cyanosis Neurological: Reports: No Symptoms. Denies: Confusion, Pre-Existing Deficit, Difficulty Walking, Gait Disturbance Psychiatric: Reports: No Symptoms - Patient Data Vitals - Most Recent: Last Vital Signs Temp 98.1 F 02/06/21 07:48 Pulse 97 02/06/21 07:48 Resp 16 02/06/21 07:48 BP 129/51 L 02/06/21 09:32 Pulse Ox 94 L 02/06/21 07:48 Weight - Most Recent: 172 lb I&O - Last 24 hours: Intake & Output 02/05/21 02/06/21 02/06/21 22:59 06:59 14:59 Intake Total 1000 800 Output Total 980 950 Balance 20 -150 Lab Results - Last 24 hrs: Laboratory Results - last 24 hr 02/05/21 02/06/21 02/06/21 Range/Units 06:02 06:17 06:17 WBC 8.43 (4.23-9.07) K/mm3 RBC 4.69 (4.63-6.08) M/mm3 Hgb 14.0 (13.7-17.5) gm/dl Hct 41.3 (40.1-51.0) % MCV 88.1 (79.0-92.2) fl MCH 29.9 (25.7-32.2) pg MCHC 33.9 (32.2-35.5) g/dl RDW Std Deviation 45.1 H (35.1-43.9) fL Plt Count 187 (163-337) K/mm3 MPV 9.4 (9.4-12.3) fl Neut % (Auto) 67.1 (34.0-67.9) % Lymph % (Auto) 15.7 L (21.8-53.1) % [place] % (Auto) 14.4 H (5.3-12.2) % Eos % (Auto) 1.4 (0.8-7.0) Baso % (Auto) 0.2 (0.1-1.2) % Neut # (Auto) 5.66 H (1.78-5.38) K/mm3 Lymph # (Auto) 1.32 (1.32-3.57) K/mm3 [place] # (Auto) 1.21 H (0.30-0.82) K/mm3 Eos # (Auto) 0.12 (0.04-0.54) K/mm3 Baso # (Auto) 0.02 (0.01-0.08) K/mm3 Sodium 140 (136-145) mEq/L Potassium 3.9 (3.5-5.1) mEq/L Chloride 105 (98-107) mEq/L Carbon Dioxide 26 (21-32) mEq/L Anion Gap 12.9 (5-15) BUN 15 (7-18) mg/dL Creatinine 1.2 (0.7-1.3) mg/dL Est Cr Clr Drug Dosing 43.94 mL/min Estimated GFR (MDRD) 57 (>60) mL/min BUN/Creatinine Ratio 12.5 L (14-18) Glucose 126 H (70-99) mg/dL Calcium 8.4 L (8.5-10.1) mg/dL Magnesium 2.1 (1.8-2.4) mg/dL C-Reactive Protein 6.8 H* (<1.0) mg/dL TSH 3rd Generation 1.686 (0.358-3.74) uIU/mL [place] Results - Last 24 hrs: Microbiology 02/02/21 21:20 Aerobic Blood Culture - Preliminary Blood - Venous NO GROWTH AFTER 3 DAYS Anaerobic Blood Culture - Preliminary NO GROWTH AFTER 3 DAYS 02/02/21 21:25 Aerobic Blood Culture - Preliminary Blood - Venous - Lab Draw NO GROWTH AFTER 3 DAYS Anaerobic Blood Culture - Preliminary NO GROWTH AFTER 3 DAYS 02/02/21 19:40 Urine Culture - Final Urine Escherichia Coli Med Orders - Current: Current Medications Acetaminophen (Acetaminophen 325 Mg Tab) 650 mg PO Q6H PRN PRN Reason: Pain/Fever Albuterol (Albuterol 6.7 Gm Inhaler) 0 gm INH ASDIRECTED PRN PRN Reason: Dyspnea Amlodipine Besylate (Amlodipine 10 Mg Tab) 10 mg PO DAILY [facility] Last Admin: 02/06/21 09:32 Dose: Not Given Documented by: Apixaban (Apixaban 5 Mg Tab) 5 mg PO BID [facility] Last Admin: 02/06/21 09:26 Dose: 5 mg Documented by: Hydralazine HCl (Hydralazine 20 Mg/Ml Sdv) 10 mg IVPUSH Q8H PRN PRN Reason: Other Levothyroxine Sodium (Levothyroxine 50 Mcg Tab) 50 mcg PO DAILY@0600 [facility] Last Admin: 02/06/21 05:04 Dose: 50 mcg Documented by: Metoprolol Tartrate (Metoprolol Tartrate 5 Mg/5 Ml Sdv) 5 mg IVPUSH Q4H PRN PRN Reason: Tachycardia Mometasone Furoate/Formoterol Fumar (Formoterol/Mometasone 100-5 Mcg 8.8 Gm Inhaler) 0 puff IH BID [facility] Last Admin: 02/06/21 09:25 Dose: 2 inhaler Documented by: Ondansetron HCl (Ondansetron 4 Mg/2 Ml Sdv) 4 mg IV Q4H PRN PRN Reason: Nausea/Vomiting Sodium Chloride (Sodium Chloride 0.9% 10 Ml Syringe) 10 ml FLUSH ASDIRECTED PRN PRN Reason: Keep Vein Open Last Admin: 02/02/21 20:57 Dose: 10 ml Documented by: Tamsulosin HCl (Tamsulosin 0.4 Mg Cap.Er) 0.4 mg PO BEDTIME [facility] Last Admin: 02/05/21 20:25 Dose: 0.4 mg Documented by: Trimethoprim/Sulfamethoxazole (Sulfamethoxazole/Trimethoprim 800-160 Mg Tab) 1 tab PO BID [facility] Stop: 02/11/21 21:01 Last Admin: 02/06/21 09:26 Dose: 1 tab Documented by: Discontinued Medications Ceftriaxone Sodium (Ceftriaxone 2 Gm Vial) Confirm Administered Dose 2 gm .ROUTE .STK-MED ONE Stop: 02/02/21 21:00 Last Admin: 02/02/21 21:09 Dose: Not Given Documented by: Ceftriaxone Sodium (Ceftriaxone 2 Gm Advvial) Confirm Administered Dose 2 gm IV .[facility] ONE Stop: 02/02/21 21:02 Last Admin: 02/02/21 21:31 Dose: Not Given Documented by: Heparin Sodium (Porcine) (Heparin Sodium 5,000 Units/Ml Vial) 5,000 units SUBCUT Q8H [facility] Last Admin: 02/03/21 16:50 Dose: 5,000 units Documented by: Sodium Chloride (Normal Saline) 1,000 mls @ 500 mls/hr IV ONETIME ONE Stop: 02/02/21 22:56 Last Admin: 02/02/21 21:05 Dose: 500 mls/hr Documented by: Ceftriaxone Sodium 2 gm/ (Sodium Chloride) 100 mls @ 200 mls/hr IV ONETIME ONE Stop: 02/02/21 21:26 Last Admin: 02/02/21 21:28 Dose: 200 mls/hr Documented by: Sodium Chloride (Normal Saline) Confirm Administered Dose 100 mls @ as directed .ROUTE .STK-MED ONE Stop: 02/02/21 21:02 Last Admin: 02/02/21 21:31 Dose: Not Given Documented by: Sodium Chloride (Normal Saline) 1,000 mls @ 200 mls/hr IV ASDIRECTED [facility] Stop: 02/03/21 04:00 Last Admin: 02/02/21 23:50 Dose: 200 mls/hr Documented by: Ceftriaxone Sodium 1 gm/ (Sodium Chloride) 100 mls @ 200 mls/hr IV Q24H [facility] Last Admin: 02/04/21 21:21 Dose: 200 mls/hr Documented by: Lactated Ringer's (Ringers, Lactated) 1,000 mls @ 100 mls/hr IV ASDIRECTED [facility] Last Admin: 02/03/21 08:58 Dose: 100 mls/hr Documented by: Metoprolol Tartrate 5 mg/ (Sodium Chloride) 55 mls @ 100 mls/hr IV ONETIME ONE Stop: 02/05/21 00:40 Last Admin: 02/05/21 00:21 Dose: Not Given Documented by: Metoprolol Tartrate (Metoprolol Tartrate 5 Mg/5 Ml Sdv) 5 mg IVPUSH ONETIME ONE Stop: 02/05/21 00:11 Last Admin: 02/05/21 00:29 Dose: 5 mg Documented by: Pantoprazole Sodium (Pantoprazole 40 Mg Tab.Cr) 40 mg PO BEDTIME [facility] Last Admin: 02/03/21 22:32 Dose: 40 mg Documented by: Potassium Chloride (Potassium Chloride 20 Meq Tab.Er) 40 meq PO ONETIME ONE Stop: 02/03/21 08:08 Last Admin: 02/03/21 08:58 Dose: 40 meq Documented by: Potassium Chloride (Potassium Chloride 20 Meq Tab.Er) 20 meq PO TID [facility] Last Admin: 02/05/21 09:26 Dose: 20 meq Documented by: Potassium Chloride (Potassium Chloride 20 Meq Tab.Er) 20 meq PO ONETIME ONE Stop: 02/05/21 09:53 Last Admin: 02/05/21 10:30 Dose: 20 meq Documented by: Potassium Chloride (Potassium Chloride 20 Meq Tab.Er) 40 meq PO BID [facility] Stop: 02/06/21 09:01 Last Admin: 02/06/21 09:26 Dose: 40 meq Documented by: - Exam Quality Assessment: Reports: DVT Prophylaxis. Denies: Supplemental Oxygen, Urine Catheter General: Reports: Alert, Oriented, Cooperative, No Acute Distress HEENT: Reports: Pupils Equal, Pupils Reactive, Mucous Membr. Moist/[place] Neck: Reports: Supple, Trachea Midline, No JVD Lungs: Reports: Clear to Auscultation, Normal Respiratory Effort Cardiovascular: Reports: Regular Rate, Regular Rhythm GI/Abdominal Exam: Normal Bowel Sounds, Soft, Non-Tender, No Distention (Male) Exam: Deferred Rectal (Males) Exam: Deferred Back Exam: Reports: Normal Inspection, Full Range of Motion Extremities: Normal Inspection, Normal Range of Motion, Non-Tender, No Pedal Edema, Normal Capillary Refill Skin: Reports: Warm, Dry, Intact Wound/Incisions: Reports: Healing Well Neurological: Reports: No New Focal Deficit Psy/Mental Status: Reports: Alert, Normal Affect, Normal Mood
[2021-02-06 12:45] VITALS: BP 129/54; PULSE 72
== END 2021-02-06 14:26 | disposition home or self-care (01) | DRG 872 ==
LOC: JD.ED 19:04 → JD.MS 23:17
PROVIDERS: ADMIT Hospitalist; ATTEND Hospitalist
DX: A41.51 Sepsis due to Escherichia coli [E. coli] (principal); A41.9 Sepsis, unspecified organism; N39.0 Urinary tract infection, site not specified; N17.9 Acute kidney failure, unspecified; R65.20 Severe sepsis without septic shock; K21.9 Gastro-esophageal reflux disease without esophagitis; I10 Essential (primary) hypertension; E03.9 Hypothyroidism, unspecified; N40.0 Benign prostatic hyperplasia without lower urinary tract symptoms; Z79.899 Other long term (current) drug therapy; Z20.822 Contact with and (suspected) exposure to COVID-19; I48.91 Unspecified atrial fibrillation; J44.9 Chronic obstructive pulmonary disease, unspecified; M16.9 Osteoarthritis of hip, unspecified; E87.6 Hypokalemia; N40.1 Benign prostatic hyperplasia with lower urinary tract symptoms; R35.1 Nocturia; R09.89 Other specified symptoms and signs involving the circulatory and respiratory systems; Z96.649 Presence of unspecified artificial hip joint; Z96.619 Presence of unspecified artificial shoulder joint; Z97.3 Presence of spectacles and contact lenses; Z97.2 Presence of dental prosthetic device (complete) (partial); Z86.16 Personal history of COVID-19; Z98.42 Cataract extraction status, left eye; Z98.41 Cataract extraction status, right eye; Z90.49 Acquired absence of other specified parts of digestive tract; Z98.890 Other specified postprocedural states; Z86.14 Personal history of Methicillin resistant Staphylococcus aureus infection; Z90.89 Acquired absence of other organs
CPT/HCPCS: 36415; 71045; 80053; 81003; 83605 ×2; 85007; 85027; 87040 ×2; 87086; 87088; 87186; 93005; 96365; 99285; J0696; J7030; U0002; 80048; 83735; 84443; 85025; 86140; 93306; 94640; 94760; 94761; 94762; 97110-GP; 97162-GP; 97530-GP; A9270-GY; J1644; J3490; J7120